=== PATIENT | male | born 1950 | race African-American/Black ===

== ENCOUNTER 2019-05-04 13:10 | Inpatient (IN) | payer MEDICARE ==
[~2019-05-04] VITALS: Ht 177.8 cm; Wt 118.8 kg
[~2019-05-04 13:10] MED LIST: ASPIR 8181 MG PO; CARVEDILOL PO; CLOPIDOGREL75 MG PO; DICLOFENAC POTA50 MG PO; JANUVIA100 MG PO; METFORMIN HCL500 MG PO; PRAVASTATIN SOD20 MG PO; TORSEMIDE20 MG PO; ZESTRIL20 MG PO
[2019-05-04] MEDS ORDERED: SODIUM CHLORIDE 0.9% 500ML 500 ML IV STA (13:37)
[2019-05-04] MEDS ORDERED: FAMOTIDINE 20 MG/2 ML VIAL IV ONE ×2 (13:45→13:51)
[2019-05-04] MEDS ORDERED: ONDANSETRON HCL INJ 2MG/ML 2ML 2 MG/ML VIAL IV ONE (13:45)
[2019-05-04] MEDS ORDERED: ONDANSETRON HCL INJ 2MG/ML 2ML 2 MG/ML VIAL ONE (13:51)
[2019-05-04] MEDS ORDERED: SODIUM CHLORIDE 0.9% 1000ML 1,000 ML ONE (13:51)
[2019-05-04] MEDS ORDERED: INSULIN REGULAR, HUMAN 100 UNIT/1 ML 3ML VIAL SQ ONE (14:00)
[2019-05-04] MEDS ORDERED: INSULIN REGULAR, HUMAN 100 UNIT/1 ML 3ML VIAL ONE (14:11)
[2019-05-04] MEDS: INSULIN REGULAR, HUMAN 100 UNIT/1 ML 3ML VIAL IV SCH ×2 (14:11→21:30)
[2019-05-04] MEDS ORDERED: ONDANSETRON HCL 4 MG ORAL DISINTEGRATING TAB PO PRN (14:30)
[2019-05-04] MEDS ORDERED: MORPHINE SULFATE 2 MG/ML SYR 1ML IV PRN (14:30)
[2019-05-04] MEDS ORDERED: ENALAPRILAT IV INJ 1.25 MG/ML VIAL IV PRN (14:30)
[2019-05-04] MEDS ORDERED: DEXTROSE 50% SYRINGE 50 ML IV PRN (14:30)
--- NOTE | 2019-05-04 14:40 | NUR ---
[facility] CALLED FOR TRANSPORT 45MIN ETA
--- NOTE | 2019-05-04 14:43 | Diagnostic Imaging Report ---
EXAMINATION: CXR 1 VEW - HOPD INDICATION: Hyperglycemia COMPARISON: None FINDINGS: LINES/TUBES:None LUNGS:The lungs are moderately inflated. No focal consolidation. Mild subsegmental atelectasis at the right lung base. PLEURA:No pleural effusion or pneumothorax. MEDIASTINUM:Heart size is at the upper limits of normal. BONES/SOFT TISSUES:No acute osseous injury. ABDOMEN:No free air under the diaphragm. IMPRESSION: No focal pneumonia. Subsegmental atelectasis at the right lung base. Signed by: Gabriel Woods MD on 05/04/2019 2:40 PM
[2019-05-04] MEDS ORDERED: INSULIN GLARGINE 100 UNITS/ML VIAL SQ ONE (15:45)
[2019-05-04 16:09] VITALS: BP 122/68
[2019-05-04 16:14] VITALS: BP 122/68
[2019-05-04] MEDS: LACTATED RINGER'S 1,000 ML IV SCH (16:35)
[2019-05-04] MEDS: INSULIN REGULAR, HUMAN 100 UNIT/1 ML 3ML VIAL SQ SCH ×2 (16:39→21:30)
[2019-05-04] MEDS: FAMOTIDINE 20 MG/2 ML VIAL IV SCH (16:57)
[2019-05-04 17:30] LABS: CREATINE KINASE MB 5.9 ng/mL (0-5.0)
[2019-05-04 18:03] LABS: ANION GAP 22.6 mmol/L (8-16); CALCIUM 8.4 mg/dL (8.4-10.2); CREATININE, SERUM 1.69 mg/dL (0.72-1.25); POTASSIUM 4.6 mmol/L (3.5-5.1)
--- NOTE | 2019-05-04 18:11 | NUR ---
patient received from [facility]. see admit assess. sinus rhythm. see admit assess. vitals stable with exception of blood sugar. treated with insulin
[2019-05-04] MEDS ORDERED: ATORVASTATIN CA20 MG PO (19:17)
[2019-05-04] MEDS ORDERED: CARVEDILOL12.5 MG PO (19:19)
[2019-05-04] MEDS ORDERED: GABAPENTIN300 MG PO (19:19)
[2019-05-04] MEDS ORDERED: POTASSIUM CHLO10 ME1 PO (19:21)
[2019-05-04] MEDS ORDERED: NATEGLINIDE60 MG (19:21)
[2019-05-04] MEDS ORDERED: LANTUS 3ML100 UNITS/ (19:21)
[2019-05-04] MEDS ORDERED: FERROUS SULFAT325 MG (19:21)
[2019-05-04 19:54] VITALS: BP 116/70
[2019-05-04 20:59] VITALS: BP 116/70
[2019-05-05] VITALS (8 sets, daily range): BP systolic 109–159; BP diastolic 66–93
[2019-05-05] MEDS: LACTATED RINGER'S 1,000 ML IV SCH (04:20)
[2019-05-05 05:34] LABS: BASOPHILS % 0.3 % (0.0-1.0); EOSINOPHILS # (AUTO) 0.1 (0.0-0.4); HEMATOCRIT 33.2 % (38.2-49.6); HEMOGLOBIN 11.5 g/dL (14.0-18.0); LYMPHOCYTES # (AUTO) 1.3 (1.0-3.2); LYMPHOCYTES % 11.7 % (18.0-39.1); MEAN CORPUSCULAR HEMOGLOBIN 26.4 pg (28-32); MEAN CORPUSCULAR HGB CONC 34.6 g/dL (31-35); MEAN CORPUSCULAR VOLUME 76.1 fL (81-99); MONOCYTES # (AUTO) 1.4 (0.2-0.8); NEUTROPHILS # (AUTO) 7.9 (2.1-6.9); NEUTROPHILS % 73.4 % (38.7-80.0); PLATELET COUNT 143 x10e3/uL (140-360); RED BLOOD COUNT 4.36 x10e6/uL (4.3-5.7); RED CELL DISTRIBUTION WIDTH 16.3 % (11.7-14.4)
[2019-05-05 05:41] LABS: MAGNESIUM 2.5 MG/DL (1.3-2.1); PHOSPHORUS 2.2 MG/DL (2.3-4.7)
[2019-05-05] MEDS ORDERED: DEXTROSE 50% SYRINGE 50 ML IV PRN (05:45)
[2019-05-05 05:46] LABS: CREATINE KINASE MB 2.2 ng/mL (0-5.0)
--- NOTE | 2019-05-05 05:52 | NUR ---
H&P cc: N/V/D and diaphoresis HPI: 68yoM, PCP Reanna, developed N/V/D and diaphoresis. Found to be in DKA. PMH: DM2, DM-neuropathy, HTN, HLD, CHF PSHx: none Allergies; see emr FH/SH; ; no cigs/etoh Meds; see MAR ROS: no cp/sob/dizziness/vision changes/skin rash/leg pain/back pain v/s revd PE tired appearing anicteric ns1s2 mod bs soft nt nd 1+ leg edema B/L skin dry n. affect a&ox3 lab/meds revd A/P: 68yoM DKA JAYDA HTN HLD DM-neuropathy CHF type? Peripheral edema PLAN IVF Insulin hba1c/lipids/osmoles Echo SCD Dispo: f/u labs; keep NPO. Edmund Wood MD, PhD.
[2019-05-05] MEDS: SODIUM CHLORIDE 0.9% 1000ML 1,000 ML IV SCH ×2 (06:09→13:55)
[2019-05-05 06:31] LABS: BLOOD UREA NITROGEN 58 mg/dL (7-26); CHOLESTEROL 158 MD/DL (0-199); GLUCOSE 227 mg/dL (74-118); OSMOLALITY,SERUM 299 mOsm/kg (278-305); SODIUM 138 mmol/L (136-145); TRIGLYCERIDES 74 MG/DL (0-149)
[2019-05-05 06:33] LABS: HDL CHOLESTEROL < 5 MG/DL (40-60); LDL CHOLESTEROL 138 MG/DL (60-130)
[2019-05-05 06:52] LABS: ANION GAP 15.6 mmol/L (8-16); CALCIUM 8.2 mg/dL (8.4-10.2); CREATININE, SERUM 1.98 mg/dL (0.72-1.25); POTASSIUM 4.6 mmol/L (3.5-5.1)
--- NOTE | 2019-05-05 07:00 | NUR ---
RECEIVED PATIENT RESTING IN BED. NO ACUTE DISTRESS NOTED. DENIES PAIN OR DISCOMFORT. CALL LIGHT WITHIN REACH. BED IN THE LOWEST POSITION.
[2019-05-05] MEDS: FAMOTIDINE 20 MG/2 ML VIAL IV SCH ×2 (08:57→17:20)
[2019-05-05] MEDS: CARVEDILOL 12.5 MG TAB PO SCH ×2 (08:57→17:20)
[2019-05-05] MEDS: FERROUS SULFATE 325 MG TAB PO SCH ×2 (08:58→17:21)
[2019-05-05] MEDS: GABAPENTIN 300 MG CAP PO SCH ×3 (08:58→21:20)
[2019-05-05] MEDS: INSULIN REGULAR, HUMAN 100 UNIT/1 ML 3ML VIAL SQ SCH ×4 (08:59→19:48)
[2019-05-05] MEDS: INSULIN REGULAR, HUMAN 100 UNIT/1 ML 3ML VIAL IV SCH ×4 (09:00→19:48)
--- NOTE | 2019-05-05 11:10 | Diagnostic Imaging Report ---
EXAM: Right upper quadrant abdominal ultrasound INDICATION: Increased LFTs. COMPARISON: Abdominal ultrasound 05/28/2014. TECHNIQUE: Transverse and longitudinal images of the right upper quadrant abdomen were obtained FINDINGS: Liver: Size: Measures 16.7 cm in the right midclavicular line, Appearance: Heterogeneous in appearance. There are multiple hypoechoic nodules seen throughout the liver. Mass: No focal masses Gallbladder: No distention, pericholecystic fluid, wall thickening, or reported sonographic Kemp's sign. There is a 3 mm echogenic lesion in the gallbladder body without shadowing or mobility. However the gallbladder is partially decompressed. Gallbladder wall measures 0.3 cm. Bile Ducts: Intrahepatic Ducts: No dilatation Extrahepatic Ducts: Common bile duct measures 0.4 cm, no dilatation Pancreas: Limited evaluation due to overlying bowel gas. Kidney: The right kidney measures 11.7 cm without evidence of hydronephrosis or stone. Vessels: Aorta: Limited evaluation due to overlying bowel gas. Inferior Vena Cava: Limited evaluation due to overlying bowel gas. Main Portal Vein: 1.1 cm, normal size with hepatopetal flow. Free Fluid: No ascites or pleural effusion IMPRESSION: Hepatomegaly. Multiple hypoechoic nodules seen throughout the liver, which may represent regenerative nodules in the absence of known malignancy. Follow-up liver protocol MRI is recommended for further evaluation. A 3 mm echogenic lesion in the gallbladder body without shadowing or mobility. However the gallbladder is partially decompressed. This may represent a stone or a small polyp. Suggest follow-up ultrasound in 6 months. Signed by: Dr. Flower Fung MD on 05/05/2019 11:07 AM
--- NOTE | 2019-05-05 16:44 | NUR ---
SPOKE TO DR. BUENROSTRO IN REGARDS TO PATIENT'S BG BEING 82 AND PT HAVING SCHEDULED DOSE OF HUMULIN R 10 UNITS. PER MD, HOLD DINNER DOSE AND SCHEDULE PATIENT FOR 10 UNITS OF LANTUS HS. ORDERS PUT IN.
--- NOTE | 2019-05-05 19:20 | NUR ---
Received order to stop fluids due to ble edema.
--- NOTE | 2019-05-05 19:22 | NUR ---
REPORT GIVEN TO ONCOMING NURSE. WALKING ROUNDS DONE. PATIENT IS IN STABLE CONDITION. NO S/S OF PAIN NOTED AT THIS TIME. CALL LIGHT WITHIN REACH. BED IN THE LOWEST POSITION. BED ALARM ON.
[2019-05-05] MEDS ORDERED: INSULIN GLARGINE 100 UNITS/ML VIAL SQ SCH (21:00)
[2019-05-05] MEDS: ATORVASTATIN 20 MG TAB PO SCH (21:20)
[2019-05-06] VITALS (8 sets, daily range): BP systolic 117–138; BP diastolic 61–84
--- NOTE | 2019-05-06 05:38 | NUR ---
IM- progress note O/N: no events ROS: no cp/sob/dizziness/vision changes/skin rash/leg pain/back pain v/s revd PE tired appearing anicteric ns1s2 mod bs soft nt nd 1+ leg edema B/L skin dry n. affect a&ox3 lab/meds revd A/P: 68yoM DKA JAYDA HTN HLD DM-neuropathy CHF type? Peripheral edema PLAN IVF Insulin hba1c/lipids/osmoles Echo SCD Dispo: f/u labs; keep NPO. Hba1c/LDL 12.9/138 Uncontrolled DM; but periods of hypoglycemia here; adjust meds; lower dosings; f/u labs; Edmund Wood MD, PhD.
--- NOTE | 2019-05-06 05:55 | NUR ---
Dr. Wood here for rounding. Orders received.
--- NOTE | 2019-05-06 06:40 | NUR ---
RECEIVED PATIENT RESTING IN BED. NO ACUTE DISTRESS NOTED. NO S/S OF PAIN NOTED AT THIS TIME. CALL LIGHT WITHIN REACH. BED IN THE LOWEST POSITION.
--- NOTE | 2019-05-06 06:40 | NUR ---
NOTIFIED DR. BUENROSTRO OF PATIENT'S PRELIMINARY ECHO RESULTS THAT SHOW EF OF 20-25%, PER MD CONSULT DR. LAINEZ FOR HEART FAILURE. ORDER PLACED.
[2019-05-06] MEDS ORDERED: INSULIN REGULAR, HUMAN 100 UNIT/1 ML 3ML VIAL IV SCH (07:30)
[2019-05-06] MEDS: FAMOTIDINE 20 MG/2 ML VIAL IV SCH ×2 (08:02→16:54)
[2019-05-06] MEDS: INSULIN REGULAR, HUMAN 100 UNIT/1 ML 3ML VIAL IV SCH ×4 (08:03→21:45)
[2019-05-06] MEDS: CARVEDILOL 12.5 MG TAB PO SCH ×2 (08:03→16:54)
[2019-05-06] MEDS: GABAPENTIN 300 MG CAP PO SCH ×3 (08:03→20:30)
[2019-05-06] MEDS: FERROUS SULFATE 325 MG TAB PO SCH ×2 (08:03→16:54)
[2019-05-06] MEDS: INSULIN REGULAR, HUMAN 100 UNIT/1 ML 3ML VIAL SQ SCH ×4 (08:10→21:45)
[2019-05-06 09:31] LABS: ANION GAP 17.3 mmol/L (8-16); CALCIUM 8.2 mg/dL (8.4-10.2); CREATININE, SERUM 1.54 mg/dL (0.72-1.25); POTASSIUM 5.3 mmol/L (3.5-5.1)
--- NOTE | 2019-05-06 09:38 | NUR ---
NOTIFIED DR. BUENROSTRO OF POTASSIUM LEVEL OF 5.3, WAITING ACID LOADER BACK.
--- NOTE | 2019-05-06 10:13 | NUR ---
PER DR. BUENROSTRO, RE-ASSESS POTASSIUM LEVEL AT 1600.
--- NOTE | 2019-05-06 16:25 | NUR ---
DR. DOUGLAS CROWLEY ON PATIENT. NOTIFIED HIM THAT PATIENT HAS +3 PITTING EDEMA TO BILATERAL LOWER EXTREMITIES. NO NEW ORDERS RECEIVED AT THIS TIME.
--- NOTE | 2019-05-06 17:01 | NUR ---
CALLED LAB TO FIND OUT WHEN DUMP TRUCK OPERATOR WILL BE COMING TO COLLECT BLOOD FOR POTASSIUM RECHECK SCHEDULED FOR 1600. PER LAB, DUMP TRUCK OPERATOR WILL COME SOON, HE IS IN THE FLOOR.
--- NOTE | 2019-05-06 17:32 | NUR ---
CALLED LAB AGAIN TO FIND OUT ABOUT POTASSIUM LEVEL SCHEDULED FOR 1600 AND OTHER LABS. FISHING REEL ASSEMBLER WAS TOLD THAT THEY WILL BE COMING SOON TO COLLECT.
--- NOTE | 2019-05-06 19:01 | NUR ---
REPORT GIVEN TO ONCOMING NURSE. WALKING ROUNDS DONE. PATIENT IS IN STABLE CONDITION, NO ACUTE DISTRESS NOTED. FAMILY AT BEDSIDE. CALL LIGHT WITHIN REACH. BED IN THE LOWEST POSITION.
[2019-05-06] MEDS: ATORVASTATIN 20 MG TAB PO SCH (20:30)
[2019-05-06] MEDS ORDERED: INSULIN GLARGINE 100 UNITS/ML VIAL SQ SCH (21:00)
[2019-05-06] MEDS: INSULIN GLARGINE 100 UNITS/ML VIAL SQ SCH (21:45)
--- NOTE | 2019-05-06 23:54 | Consultation ---
DATE OF CONSULTATION: 05/06/2019 Cardiology Consultation Note CLINICAL HISTORY: This is a 68-year-old black man referred by Dr. Edmund Wood for evaluation of congestive heart failure. This patient presented to the emergency room with complaints of weakness, unable to walk. He was found to have elevated BUN of 57 and creatinine of 1.56 and he was started on large amount of intravenous fluids. Echocardiogram however showed ejection fraction in the range of 30% with also diastolic dysfunction. According to the patient, he has had congestive heart failure for at least 10 years. He does not know the cause. He denies any previous myocardial infarction or chest pains. He denies any previous alcohol usage. He denies any virus infection. He has been abroad. PAST MEDICAL HISTORY: History of hypertension, diabetes, and diabetic neuropathy. PERSONAL AND SOCIAL HISTORY: Denies smoking and drinking. FAMILY HISTORY: Noncontributory. REVIEW OF SYSTEMS: Negative. PHYSICAL EXAMINATION: GENERAL: He appears to be lethargic, sleepy. He is oriented to person, place and president. He does not know the year. VITAL SIGNS: Blood pressure 129/84, oxygen saturation 97% on room air, and pulse is 80. CARDIAC: Jugular veins were nondistended. S1, S2 were regular. There were no appreciable murmurs. LUNGS: Clear. ABDOMEN: Soft. Bowel sounds are present. EXTREMITIES: Showed no cyanosis, clubbing, or edema. LABORATORY DATA: Ultrasound showed spots on the liver and possible gallstone or polyp. Chest x-ray showed right lung subsegmental atelectasis. White count is 10,800, hemoglobin is 11.5, platelet count of 141,000. Sodium 135, potassium 5.3, BUN 57, creatinine 1.54 and bicarb is 20. IMPRESSION: 1. Chronic systolic and diastolic congestive heart failure. 2. Consider underlying coronary artery disease with EKG showed nonspecific ST segment depression. 3. Hypertension. 4. Diabetes with diabetic neuropathy. 5. Disorientation, rule out hepatic encephalopathy. 6. Multiple nodules in the liver with possible gallbladder polyp or stone. 7. Acute kidney injury or chronic kidney disease. 8. Anemia. Hemoglobin 11.5. 9. Hyperkalemia. Potassium 5.3. RECOMMENDATION: Consider afterload reduction if blood pressure can tolerate. Consider diuretics. Consider stress testing. Doyle K MD GENESIS Holloway/MODL /[id number] cc: Edmund Wood MD
[2019-05-07] VITALS (9 sets, daily range): BP systolic 107–139; BP diastolic 66–81
--- NOTE | 2019-05-07 06:54 | NUR ---
IM- progress note O/N: no events ROS: no cp/sob/dizziness/vision changes/skin rash/leg pain/back pain v/s revd PE tired appearing anicteric ns1s2 mod bs soft nt nd 1+ leg edema B/L skin dry n. affect a&ox3 lab/meds revd A/P: 68yoM DKA JAYDA HTN HLD DM-neuropathy CHF type? Peripheral edema PLAN IVF Insulin hba1c/lipids/osmoles Echo SCD Dispo: f/u labs; keep NPO. Hba1c/LDL 12.9/138 Uncontrolled DM; but periods of hypoglycemia here; adjust meds; lower dosings; f/u labs; 05/07/19 Hepatomegaly; f/u imaging in future; Combined diastolic and systolic CHF LVEF 20-25%; stress test vs [facility] pending; Edmund Wood MD, PhD.
[2019-05-07] MEDS: INSULIN REGULAR, HUMAN 100 UNIT/1 ML 3ML VIAL IV SCH ×4 (07:30→20:16)
[2019-05-07] MEDS: INSULIN REGULAR, HUMAN 100 UNIT/1 ML 3ML VIAL SQ SCH ×4 (07:30→20:16)
[2019-05-07] MEDS: CARVEDILOL 12.5 MG TAB PO SCH ×2 (09:35→18:08)
[2019-05-07] MEDS: FAMOTIDINE 20 MG/2 ML VIAL IV SCH ×2 (09:35→18:08)
[2019-05-07] MEDS: FERROUS SULFATE 325 MG TAB PO SCH ×2 (09:35→18:09)
[2019-05-07] MEDS: GABAPENTIN 300 MG CAP PO SCH ×3 (09:35→20:16)
--- NOTE | 2019-05-07 10:33 | NUR ---
Allenvyn dressing applied to sacral area. Stage 2 observed at the site, pt tolerated well.
--- NOTE | 2019-05-07 11:36 | NUR ---
Left message for Dr. Wood regarding dc plan. Informed PT recommending SNF. Awaiting response.
--- NOTE | 2019-05-07 12:10 | NUR ---
EDUCATED ABOUT IMM, SIGNED, FILED IN CHART, WITH COPY LEFT WITH FAMILY AT BEDSIDE.
--- NOTE | 2019-05-07 14:21 | NUR ---
68 Y/O MALE DIABETIC , HYPEROSMOLAR NON-KETOTIC STATE LABS: WBC 10.81, GLUCOSE 97 , HGB A1C 12.9 ASSESSMENT FINDINGS : (WOUND 1 ) OPEN PARTIAL THICKNESS WOUND TO LFT. KNEE REPORTED SKIN TEAR VASCULAR RED BASE NOTED WITH SLT SEROSANGUINEOUS DRAINAGE NOTED (WOUND 2) PARTIAL THICKNESS WOUND 1.5CMX0.5CMX0.1CM NOTED TO SACRAL CREASE OF BUTTOCK PINK WOUND BASE WITH NO DRAINAGE NOTED JOHNSON SKIN INTACT AND BLANCHABLE RECOMMENDATIONS FOLLOWS: NURSING TO CONTINUE Q SHIFT ASSESSMENT AND PROTECT AND OFFLOAD NURSING TO CONTINUE TO MAINTAIN ALTERNATING AIR MATTRESS NURSING TO CONTINUE TO GET PATIENT OUT OF BED FOR MEALS AND TOLERATED NURSING TO APPLY PURACOL WITH FOAM SECURE WITH TAPE EVERY OTHER DAY TO LFT KNEE WOUND NURSING TO APPLY VENELEX OINT DAILY COVER WITH ALLEVYN FOAM Addendum: 05/07/19 at 1443 by Hang Knott RN Amended: Links added.
[2019-05-07] MEDS ORDERED: PROMETHAZINE 12.5MG/ NACL 0.9% 12.5 MG/50 ML BAG IV PRN (16:15)
[2019-05-07] MEDS ORDERED: PROMETHAZINE 12.5MG/ NACL 0.9% 50 ML IV PRN (16:30)
--- NOTE | 2019-05-07 18:01 | NUR ---
PT CHOICE FORM SIGNED FOR [facility] PHONE NUMBER IS [phone] FAXED TO [phone]
[2019-05-07] MEDS: DOCUSATE SODIUM 100 MG CAP PO SCH (18:08)
[2019-05-07] MEDS: SENNOSIDES 8.6 MG TAB PO SCH (18:09)
[2019-05-07] MEDS: ATORVASTATIN 40 MG TAB PO SCH (20:16)
[2019-05-07] MEDS: INSULIN GLARGINE 100 UNITS/ML VIAL SQ SCH (20:17)
[2019-05-08 03:54] VITALS: BP 100/57
--- NOTE | 2019-05-08 06:50 | NUR ---
IM- progress note O/N: no events ROS: no cp/sob/dizziness/vision changes/skin rash/leg pain/back pain v/s revd PE tired appearing anicteric ns1s2 mod bs soft nt nd 1+ leg edema B/L skin dry n. affect a&ox3 lab/meds revd A/P: 68yoM DKA JAYDA HTN HLD DM-neuropathy CHF type? Peripheral edema PLAN IVF Insulin hba1c/lipids/osmoles Echo SCD Dispo: f/u labs; keep NPO. Hba1c/LDL 12.9/138 Uncontrolled DM; but periods of hypoglycemia here; adjust meds; lower dosings; f/u labs; 05/07/19 Hepatomegaly; f/u imaging in future; Combined diastolic and systolic CHF LVEF 20-25%; stress test vs [facility] pending; 05/08 snf eval; cardiac eval Edmund Wood MD, PhD.
--- NOTE | 2019-05-08 07:00 | NUR ---
BEDSIDE SHIFT REPORT RECEIVED FROM THE OVEREDGE MACHINE OPERATOR RN. PT DENIES NEEDS AT THIS TIME.
[2019-05-08 08:00] VITALS: BP 127/83
[2019-05-08] MEDS: INSULIN REGULAR, HUMAN 100 UNIT/1 ML 3ML VIAL SQ SCH ×7 (08:15→21:23)
[2019-05-08 08:26] LABS: BASOPHILS % 0.5 % (0.0-1.0); EOSINOPHILS # (AUTO) 0.1 (0.0-0.4); EOSINOPHILS % 1.1 % (0.0-6.0); HEMATOCRIT 33.2 % (38.2-49.6); HEMOGLOBIN 11.7 g/dL (14.0-18.0); LYMPHOCYTES # (AUTO) 1.1 (1.0-3.2); LYMPHOCYTES % 12.8 % (18.0-39.1); MEAN CORPUSCULAR HEMOGLOBIN 26.4 pg (28-32); MEAN CORPUSCULAR HGB CONC 35.2 g/dL (31-35); MEAN CORPUSCULAR VOLUME 74.8 fL (81-99); MONOCYTES # (AUTO) 1.4 (0.2-0.8); MONOCYTES % 16.2 % (4.4-11.3); NEUTROPHILS # (AUTO) 5.7 (2.1-6.9); NEUTROPHILS % 68.7 % (38.7-80.0); PLATELET COUNT 125 x10e3/uL (140-360); RED BLOOD COUNT 4.44 x10e6/uL (4.3-5.7); RED CELL DISTRIBUTION WIDTH 17.3 % (11.7-14.4)
--- NOTE | 2019-05-08 08:30 | NUR ---
PAGED DR. BUENROSTRO TO CONFIRM THE ORDER INSULIN THROUGH IV. NO NEW ORDERS RECEIVED.
[2019-05-08 08:34] VITALS: BP 127/83
[2019-05-08 08:38] LABS: ANION GAP 15.5 mmol/L (8-16); BLOOD UREA NITROGEN 50 mg/dL (7-26); BUN/CREATININE RATIO 37 (6-25); CALCIUM 7.9 mg/dL (8.4-10.2); CARBON DIOXIDE 22 mmol/L (22-29); CHLORIDE 104 mmol/L (98-107); CREATININE, SERUM 1.34 mg/dL (0.72-1.25); EST GLOMERULAR FILTRATION RATE > 60 ML/MIN (60-); GLUCOSE 163 mg/dL (74-118); POTASSIUM 5.5 mmol/L (3.5-5.1); SODIUM 136 mmol/L (136-145)
--- NOTE | 2019-05-08 08:45 | NUR ---
INSULIN ROUTE CHANGED TO SUBQ PER DR BUENROSTRO
[2019-05-08] MEDS: CARVEDILOL 12.5 MG TAB PO SCH ×2 (08:53→18:00)
[2019-05-08] MEDS: FAMOTIDINE 20 MG/2 ML VIAL IV SCH ×2 (08:54→17:59)
[2019-05-08] MEDS: GABAPENTIN 300 MG CAP PO SCH ×3 (08:57→21:22)
[2019-05-08] MEDS: SENNOSIDES 8.6 MG TAB PO SCH ×2 (08:57→17:59)
[2019-05-08] MEDS: DOCUSATE SODIUM 100 MG CAP PO SCH ×2 (08:57→17:59)
[2019-05-08] MEDS: FERROUS SULFATE 325 MG TAB PO SCH ×2 (08:57→17:59)
--- NOTE | 2019-05-08 09:24 | NUR ---
FAXED PAS[facility] TO [facility], PRINTED RTF AND PUT AT NURSES STATION AND FILED PASRR IN CHART AND COPY WITH PACKET TO GO TO FACILITY.
[2019-05-08 09:30] LABS: EOSINOPHILS % (MANUAL) 1 % (0-7); LYMPHOCYTES % (MANUAL) 11 % (19-48); MONOCYTES % (MANUAL) 18 % (3.4-9.0); NEUTROPHILS % (MANUAL) 70 % (40-74); PLATELET ESTIMATE SLIGHTLY DECREASED; PLATELET MORPHOLOGY COMMENT FEW LARGE; RBC MORPHOLOGY COMMENT NORMAL
[2019-05-08] MEDS: BALSAM PERU/CASTOR OIL 60 GM OINT...G. TP SCH (09:30)
--- NOTE | 2019-05-08 09:45 | NUR ---
RAC 20G IV REMOVED. TIP INTACT. NO BLEEDING NOTED. DRESSING APPLIED.PT DENIED FURTHER NEEDS.
--- NOTE | 2019-05-08 10:00 | NUR ---
RH NEW IV STARTED. PT DENIED FURTHER NEEDS. Addendum: 05/08/19 at 1541 by Praful Spaulding RN LH NEW IV STARTED 20G
--- NOTE | 2019-05-08 10:05 | NUR ---
PT POTASSIUM LEVEL IS HIGH. PAGED DR. BUENROSTRO AND LEFT MESSAGE REGARDING THE K LEVEL.
--- NOTE | 2019-05-08 11:20 | NUR ---
PT OFF UNIT FOR PROCEDURE.
[2019-05-08] MEDS ORDERED: REGADENOSON 0.4 MG/5 ML SYR IV ONE (11:40)
--- NOTE | 2019-05-08 13:15 | NUR ---
PT IS BACK TO UNIT AFTER PROCEDURE. PT IS AAOX2. PT IS TRYING TO GET OUT OF BED. EDUCATED PT ABOUT FALL PRECAUTIONS. BED ALARM IS ON. PT FAMILY AT BEDSIDE. CALL LIGHT WITH IN EASY REACH. PT DENIES NEEDS AT THIS TIME.
[2019-05-08 13:40] VITALS: BP 95/76
--- NOTE | 2019-05-08 14:00 | NUR ---
CALL BACK FROM DR. BUENROSTRO. GIVE 500 ML FLUID BOLUS AND RECHECK K LEVEL AFTER 2 HOURS.
--- NOTE | 2019-05-08 14:05 | NUR ---
PT K LEVEL IS 5.5. PER DR. BUENROSTRO GIVE 500 FL FLUID BOLUS. RECONFIRMED BOLUS ORDER, DOSAGE AND PT HX OF CHF WITH
[2019-05-08] MEDS ORDERED: SODIUM CHLORIDE 0.9% 500ML 500 ML IV ONE (14:15)
[2019-05-08] MEDS ORDERED: SODIUM CHLORIDE 0.9% 1000ML 1,000 ML IV SCH (14:15)
--- NOTE | 2019-05-08 15:00 | NUR ---
PT ABDOMEN DISTENDED. SWELLING ON HANDS AND LEGS. INFORMED DR. BUENROSTRO. IV BOLUS ORDER CANCELLED. NEW ORDER RECEIVED FOR KAYEXALATE.
[2019-05-08] MEDS ORDERED: SOD POLYSTYRENE SULFONATE SUSP 15 GM/60 ML BTL PO NR (15:15)
[2019-05-08 16:00] VITALS: BP 107/72
--- NOTE | 2019-05-08 16:35 | NUR ---
NUCLEAR MEDICINE NURSE AT BEDSIDE.
--- NOTE | 2019-05-08 19:00 | NUR ---
PT OFF UNIT FOR PROCEDURE. REPORT GIVEN TO JUVENILE JUSTICE OFFICER RN.
--- NOTE | 2019-05-08 19:42 | NUR ---
PT BACK FROM PROCEDURE AT THIS TIME.NO S/S OF DISTRESS NOTED.RESPIRATIONS EVEN/NON LABORED.PT FAMILY AT BEDSIDE.BED IN LOWEST/LOCKED POSITION.CALL LIGHT WITHIN EASY REACH.
[2019-05-08 21:19] VITALS: BP 135/79
[2019-05-08] MEDS: ATORVASTATIN 40 MG TAB PO SCH (21:22)
[2019-05-08] MEDS: INSULIN GLARGINE 100 UNITS/ML VIAL SQ SCH (21:24)
[2019-05-09] VITALS (7 sets, daily range): BP systolic 91–135; BP diastolic 58–84
[2019-05-09 06:01] LABS: ANION GAP 14.2 mmol/L (8-16); CALCIUM 8.1 mg/dL (8.4-10.2); CREATININE, SERUM 1.67 mg/dL (0.72-1.25); POTASSIUM 4.2 mmol/L (3.5-5.1)
--- NOTE | 2019-05-09 07:00 | NUR ---
BEDSIDE SHIFT REPORT RECEIVED FROM COMMUNITY ADVOCATE RN. PT DENIES NEEDS AT THIS TIME.
--- NOTE | 2019-05-09 07:03 | NUR ---
BEDSIDE SHIFT REPORT GIVEN TO ONCOMING NURSE.PT RESTING IN BED WITH NO S/S OF DISTRESS.
--- NOTE | 2019-05-09 07:30 | NUR ---
CALL FROM DR. BUENROSTRO. INFORMED CONCERN OVER ABDOMINAL DISTENTION. NEW ORDER RECEIVED FOR JONATHAN.
--- NOTE | 2019-05-09 07:30 | NUR ---
IM- progress note O/N: no events ROS: no cp/sob/dizziness/vision changes/skin rash/leg pain/back pain v/s revd PE tired appearing anicteric ns1s2 mod bs soft nt nd 1+ leg edema B/L skin dry n. affect a&ox3 lab/meds revd A/P: 68yoM DKA JAYDA HTN HLD DM-neuropathy CHF type? Peripheral edema PLAN IVF Insulin hba1c/lipids/osmoles Echo SCD Dispo: f/u labs; keep NPO. Hba1c/LDL 12.9/138 Uncontrolled DM; but periods of hypoglycemia here; adjust meds; lower dosings; f/u labs; 05/07/19 Hepatomegaly; f/u imaging in future; Combined diastolic and systolic CHF LVEF 20-25%; stress test vs [facility] pending; 05/08 snf eval; cardiac eval 05/09 fluids off at family request; some confusion; continue insulin; give 1/2NS at 50/hr; Hyperkalemia resolved with kayexalate; get KUB . SNF eval pending; Edmund Wood MD, PhD.
--- NOTE | 2019-05-09 07:35 | NUR ---
NEW ORDER RECEIVED FROM DR. BUENROSTRO FOR FLUIDS AT 50 ML/HR. INFORMED PT SWELLING AND HX OF CHF. ORDER RECONFIRMED.
[2019-05-09] MEDS: SODIUM CHLORIDE 0.45% 1,000 ML IV SCH (08:18)
[2019-05-09] MEDS: DOCUSATE SODIUM 100 MG CAP PO SCH ×2 (08:18→16:03)
[2019-05-09] MEDS: FERROUS SULFATE 325 MG TAB PO SCH ×2 (08:19→16:03)
[2019-05-09] MEDS: GABAPENTIN 300 MG CAP PO SCH ×3 (08:19→21:15)
[2019-05-09] MEDS: CLOPIDOGREL BISULFATE 75 MG TAB PO SCH (08:19)
[2019-05-09] MEDS: SENNOSIDES 8.6 MG TAB PO SCH ×2 (08:19→16:03)
[2019-05-09] MEDS: INSULIN REGULAR, HUMAN 100 UNIT/1 ML 3ML VIAL SQ SCH ×8 (08:30→21:17)
[2019-05-09] MEDS: BALSAM PERU/CASTOR OIL 60 GM OINT...G. TP SCH (09:00)
--- NOTE | 2019-05-09 10:42 | NUR ---
CALLED [facility] TO SEE WHERE THE REFERRAL, SPOKE WITH BUSINESS OFFICE WHOM STATES SHE WAS OUT ON TUESDAY AND JUST GOT CLINICALS LATE LAST NIGHT DONALD MCKOY TO RUN BENEFITS, SHE STATES SHE WILL HAVE SOMEONE CALL ME BACK SOON THEY KNOW SOMETHING.
[2019-05-09] MEDS: FAMOTIDINE 20 MG/2 ML VIAL IV SCH ×2 (10:46→16:03)
[2019-05-09] MEDS: CARVEDILOL 12.5 MG TAB PO SCH ×2 (10:47→16:04)
--- NOTE | 2019-05-09 14:08 | NUR ---
EDUCATED ABOUT IMM, SIGNED, FILED IN CHART, WITH COPY LEFT WITH FAMILY AT BEDSIDE.
--- NOTE | 2019-05-09 15:39 | Diagnostic Imaging Report ---
Exam: KUB - 2 views Indication: Abdominal distention Comparison: None Findings: Nonobstructive bowel gas pattern. No evidence of free intraperitoneal air. No evidence of abnormal calcification. No acute bony abnormality. Impression: No acute radiographic abnormality. Signed by: Gabriel Woods MD on 05/09/2019 3:36 PM
--- NOTE | 2019-05-09 19:24 | NUR ---
BEDSIDE SHIFT REPORT GIVEN TO THE TURFGRASS MANAGEMENT PROFESSOR RN. PT DENIED FURTHER NEEDS.
[2019-05-09] MEDS: ATORVASTATIN 40 MG TAB PO SCH (21:15)
[2019-05-09] MEDS: INSULIN GLARGINE 100 UNITS/ML VIAL SQ SCH (21:18)
[2019-05-10] VITALS (7 sets, daily range): BP systolic 95–121; BP diastolic 54–66
[2019-05-10] MEDS: SODIUM CHLORIDE 0.45% 1,000 ML IV SCH ×2 (02:51→22:12)
--- NOTE | 2019-05-10 06:53 | NUR ---
IM- progress note O/N: no events ROS: no cp/sob/dizziness/vision changes/skin rash/leg pain/back pain v/s revd PE tired appearing anicteric ns1s2 mod bs soft nt nd 1+ leg edema B/L skin dry n. affect a&ox3 lab/meds revd A/P: 68yoM DKA JAYDA HTN HLD DM-neuropathy CHF type? Peripheral edema PLAN IVF Insulin hba1c/lipids/osmoles Echo SCD Dispo: f/u labs; keep NPO. Hba1c/LDL 12.9/138 Uncontrolled DM; but periods of hypoglycemia here; adjust meds; lower dosings; f/u labs; 05/07/19 Hepatomegaly; f/u imaging in future; Combined diastolic and systolic CHF LVEF 20-25%; stress test vs [facility] pending; 05/08 snf eval; cardiac eval 05/09 fluids off at family request; some confusion; continue insulin; give 1/2NS at 50/hr; Hyperkalemia resolved with kayexalate; get KUB . SNF eval pending; 05/10 KUB negative; check renal fn; Further assessment by cardio shows LVEF 30%; no lifevest indicated; SNF pending; Edmund Wood MD, PhD.
--- NOTE | 2019-05-10 07:00 | NUR ---
BEDSIDE SHIFT REPORT RECEIVED FROM THE DISTRICT BRANCH MANAGER RN. PT DENIES NEEDS AT THIS TIME.
--- NOTE | 2019-05-10 07:10 | NUR ---
BEDSIDE SHIFT REPORT GIVEN TO ONCOMING NURSE.PT RESTING IN BED WITH NO S/S OF DISTRESS.
[2019-05-10] MEDS: INSULIN REGULAR, HUMAN 100 UNIT/1 ML 3ML VIAL SQ SCH ×5 (07:30→21:00)
--- NOTE | 2019-05-10 07:30 | NUR ---
DR. BUENROSTRO AT BEDSIDE. PT IS NOT EATING WELL. STOPPED 5 UNITS STANDING ORDER INSULIN HUMULIN PER THE DR AND USING ONLY SLIDING SCALE INSULIN HUMULIN.
[2019-05-10 07:59] LABS: ANION GAP 13.6 mmol/L (8-16); CALCIUM 7.6 mg/dL (8.4-10.2); CREATININE, SERUM 1.72 mg/dL (0.72-1.25); POTASSIUM 4.6 mmol/L (3.5-5.1)
[2019-05-10] MEDS: DOCUSATE SODIUM 100 MG CAP PO SCH ×2 (08:25→17:00)
[2019-05-10] MEDS: FAMOTIDINE 20 MG/2 ML VIAL IV SCH ×2 (08:25→17:00)
[2019-05-10] MEDS: GABAPENTIN 300 MG CAP PO SCH ×3 (08:26→22:11)
[2019-05-10] MEDS: CLOPIDOGREL BISULFATE 75 MG TAB PO SCH (08:26)
[2019-05-10] MEDS: SENNOSIDES 8.6 MG TAB PO SCH ×2 (08:26→17:00)
[2019-05-10] MEDS: FERROUS SULFATE 325 MG TAB PO SCH ×2 (08:26→17:00)
[2019-05-10] MEDS: BALSAM PERU/CASTOR OIL 60 GM OINT...G. TP SCH (09:00)
[2019-05-10] MEDS: CARVEDILOL 12.5 MG TAB PO SCH ×2 (09:00→17:00)
--- NOTE | 2019-05-10 19:00 | NUR ---
BEDSIDE SHIFT REPORT GIVEN TO THE RADIOLOGIC TECH RN. FAMILY AT BEDSIDE. PT DENIED FURTHER NEEDS.
[2019-05-10] MEDS: INSULIN GLARGINE 100 UNITS/ML VIAL SQ SCH (21:00)
[2019-05-10] MEDS: ATORVASTATIN 40 MG TAB PO SCH (22:11)
[2019-05-11] VITALS (9 sets, daily range): BP systolic 95–129; BP diastolic 56–70
[2019-05-11] MEDS: INSULIN REGULAR, HUMAN 100 UNIT/1 ML 3ML VIAL SQ SCH ×4 (07:30→21:45)
--- NOTE | 2019-05-11 08:16 | NUR ---
IM- progress note O/N: no events ROS: no cp/sob/dizziness/vision changes/skin rash/leg pain/back pain v/s revd PE tired appearing anicteric ns1s2 mod bs soft nt nd 1+ leg edema B/L skin dry n. affect a&ox3 lab/meds revd A/P: 68yoM DKA JAYDA HTN HLD DM-neuropathy CHF type? Peripheral edema PLAN IVF Insulin hba1c/lipids/osmoles Echo SCD Dispo: f/u labs; keep NPO. Hba1c/LDL 12.9/138 Uncontrolled DM; but periods of hypoglycemia here; adjust meds; lower dosings; f/u labs; 05/07/19 Hepatomegaly; f/u imaging in future; Combined diastolic and systolic CHF LVEF 20-25%; stress test vs [facility] pending; 05/08 snf eval; cardiac eval 05/09 fluids off at family request; some confusion; continue insulin; give 1/2NS at 50/hr; Hyperkalemia resolved with kayexalate; get KUB . SNF eval pending; 05/10 KUB negative; check renal fn; Further assessment by cardio shows LVEF 30%; no lifevest indicated; SNF pending; 05/11 check labs; titrate lantus to 7 units; ambulate pt. Confused; Low mood; check ammonia and check PHQ9 and P4 now; likely needs antidepressants; Edmund Wood MD, PhD.
[2019-05-11 08:37] LABS: BASOPHILS % 0.2 % (0.0-1.0); EOSINOPHILS # (AUTO) 0.1 (0.0-0.4); EOSINOPHILS % 1.1 % (0.0-6.0); HEMATOCRIT 32.4 % (38.2-49.6); HEMOGLOBIN 11.6 g/dL (14.0-18.0); LYMPHOCYTES % 10.5 % (18.0-39.1); MEAN CORPUSCULAR HEMOGLOBIN 26.7 pg (28-32); MEAN CORPUSCULAR HGB CONC 35.8 g/dL (31-35); MEAN CORPUSCULAR VOLUME 74.7 fL (81-99); MONOCYTES # (AUTO) 1.3 (0.2-0.8); MONOCYTES % 13.9 % (4.4-11.3); NEUTROPHILS # (AUTO) 7.1 (2.1-6.9); NEUTROPHILS % 73.9 % (38.7-80.0); PLATELET COUNT 131 x10e3/uL (140-360); RED BLOOD COUNT 4.34 x10e6/uL (4.3-5.7); RED CELL DISTRIBUTION WIDTH 17.5 % (11.7-14.4)
[2019-05-11 08:58] LABS: ANION GAP 17.6 mmol/L (8-16); CALCIUM 7.8 mg/dL (8.4-10.2); CREATININE, SERUM 2.44 mg/dL (0.72-1.25); POTASSIUM 4.6 mmol/L (3.5-5.1)
[2019-05-11] MEDS: DOCUSATE SODIUM 100 MG CAP PO SCH ×2 (09:41→16:08)
[2019-05-11] MEDS: FAMOTIDINE 20 MG/2 ML VIAL IV SCH ×2 (09:41→16:08)
[2019-05-11] MEDS: SENNOSIDES 8.6 MG TAB PO SCH ×2 (09:42→16:08)
[2019-05-11] MEDS: CARVEDILOL 12.5 MG TAB PO SCH ×2 (09:42→16:08)
[2019-05-11] MEDS: FERROUS SULFATE 325 MG TAB PO SCH ×2 (09:42→16:08)
[2019-05-11] MEDS: CLOPIDOGREL BISULFATE 75 MG TAB PO SCH (09:42)
[2019-05-11] MEDS: GABAPENTIN 300 MG CAP PO SCH ×3 (09:42→21:00)
[2019-05-11 10:44] LABS: EOSINOPHILS % (MANUAL) 1 % (0-7); LYMPHOCYTES % (MANUAL) 14 % (19-48); MONOCYTES % (MANUAL) 11 % (3.4-9.0); NEUTROPHILS % (MANUAL) 74 % (40-74); PLATELET ESTIMATE MODERATELY DECREASED; RBC MORPHOLOGY COMMENT NORMAL
--- NOTE | 2019-05-11 10:56 | NUR ---
at bedside. Patient states " I'm about to give up." Notified of patient's statement and of lab results.
[2019-05-11] MEDS: BALSAM PERU/CASTOR OIL 60 GM OINT...G. TP SCH (12:00)
--- NOTE | 2019-05-11 12:00 | NUR ---
Jack social insurance specialist aware of orders to complete PHQ9 and P4 survey
--- NOTE | 2019-05-11 12:08 | NUR ---
ADDENDUM: RISING BUN and JAYDA - consult Nephrology IM- progress note O/N: no events ROS: no cp/sob/dizziness/vision changes/skin rash/leg pain/back pain v/s revd PE tired appearing anicteric ns1s2 mod bs soft nt nd 1+ leg edema B/L skin dry n. affect a&ox3 lab/meds revd A/P: 68yoM DKA JAYDA HTN HLD DM-neuropathy CHF type? Peripheral edema PLAN IVF Insulin hba1c/lipids/osmoles Echo SCD Dispo: f/u labs; keep NPO. Hba1c/LDL 12.9/138 Uncontrolled DM; but periods of hypoglycemia here; adjust meds; lower dosings; f/u labs; 05/07/19 Hepatomegaly; f/u imaging in future; Combined diastolic and systolic CHF LVEF 20-25%; stress test vs [facility] pending; 05/08 snf eval; cardiac eval 05/09 fluids off at family request; some confusion; continue insulin; give 1/2NS at 50/hr; Hyperkalemia resolved with kayexalate; get KUB . SNF eval pending; 05/10 KUB negative; check renal fn; Further assessment by cardio shows LVEF 30%; no lifevest indicated; SNF pending; 05/11 check labs; titrate lantus to 7 units; ambulate pt. Confused; Low mood; check ammonia and check PHQ9 and P4 now; likely needs antidepressants; Rising BUN and JAYDA - consult nephrology Edmund Wood MD, PhD.
--- NOTE | 2019-05-11 12:10 | NUR ---
EDUCATED ABOUT IMM, SIGNED, FILED IN CHART, WITH COPY LEFT WITH FAMILY AT BEDSIDE.
--- NOTE | 2019-05-11 12:19 | NUR ---
SNF FACILITY DISCHARGE INFORMATION PATIENT HAS BEEN ACCEPTED TO: [facility] NAME: [facility] ADDRESS: [address], [place] [address] ACCEPTING MD: SACHI ROOM: [address]A NURSE CALL REPORT TO: IMM SIGNED AND OBTAINED (if applicable): IMM ON 05/11/2019 THE FOLLOWING DOCUMENTS MUST ACCOMPANY PATIENT FOR TRANSFER: COPIED CHART: PASRR AND CLINICALS
--- NOTE | 2019-05-11 12:55 | NUR ---
MD ASKED FOR PHQ FORM TO BE COMPLETED, TOOK TO PT ROOM SCORED AND PUT PT LABELS AND FILE DI CHART FOR MD. PT SCORED A 7.
--- NOTE | 2019-05-11 13:01 | NUR ---
PT STATES HE HAS A HISTORY OF DEPRESSION AND SEVERAL YEARS AGO TOOK MEDICATION BUT IT HAS BEEN AWHILE SINCE HE HAS BEEN ON ANY MEDICATION.
--- NOTE | 2019-05-11 13:06 | NUR ---
aware of survey results
--- NOTE | 2019-05-11 13:43 | Myoview Stress Test ---
DATE OF STUDY: 05/08/2019 11:00:00 Stress Test - Treadmill ONLY STUDY: Lexiscan Myoview. FINDINGS: Due to inability to exercise, the patient was given Lexiscan 0.4 mg intravenously and shortly afterwards 11 mCi of technetium-99m Myoview. Later at rest, the patient was given 33 mCi of technetium-99m Myoview. Perfusion images were taken by rotational tomography. Comparison of resting and Lexiscan stress images show a fixed defect in the inferior and apical wall suggesting scar. There is no reversible perfusion defects to suggest any ischemia. Additionally, gated wall motion images were obtained. The left ventricular function is abnormal with global hypokinesis and calculated ejection fraction of 30%. FINAL IMPRESSION: 1. Abnormal Lexiscan Myoview for perfusion. 2. Inferoapical scar. 3. No demonstration of ischemia. 4. Abnormal left ventricular function with global hypokinesis and calculated ejection fraction of 30%. MD NICO Bello/JOSÉ /[id number] cc: Edmund Wood MD
[2019-05-11 14:03] LABS: BILIRUBIN,URINE LARGE (NEGATIVE); CLARITY,URINE CLOUDY (CLEAR); COLOR,URINE BROWN (YELLOW); KETONES,URINE NEGATIVE (NEGATIVE); LEUKOCYTE ESTERASE ,URINE NEGATIVE (NEGATIVE); NITRITE,URINE NEGATIVE (NEGATIVE); PROTEIN,URINE DIPSTICK 1+ (NEGATIVE); URINE UROBILINOGEN 1 mg/dL (0.2 - 1)
[2019-05-11 14:24] LABS: BACTERIA,URINE MODERATE /HPF; EPITHELIAL CELLS,URINE FEW /LPF
[2019-05-11 14:25] LABS: CREATININE,URINE RANDOM 131.74 mg/dL (63-166); TOTAL PROTEIN, URINE 41.7 mg/dL (1-14)
[2019-05-11] MEDS ORDERED: PAROXETINE HCL 20 MG TAB PO ONE (16:00)
[2019-05-11] MEDS ORDERED: GUAIFENESIN/DEXTROMETHORPHAN LIQD 5 ML UDC PO PRN (17:30)
--- NOTE | 2019-05-11 17:36 | Diagnostic Imaging Report ---
Renal ultrasound Clinical History: Acute renal failure Discussion: Sonographic evaluation of the kidneys is performed. The kidneys have normal size and cortical echogenicity. The right kidney measures 10.6 cm in length. The left kidney measures 12.1 cm in length. There is no focal renal mass, hydronephrosis, or shadowing renal calculus. No perinephric fluid collection is seen. Survey images of the bladder demonstrate no abnormality. Impression: Normal sonographic evaluation of the kidneys. Signed by: Dr. Grayson Clifford MD on 05/11/2019 5:32 PM
[2019-05-11] MEDS: SODIUM CHLORIDE 0.45% 1,000 ML IV SCH (18:02)
--- NOTE | 2019-05-11 19:00 | Consultation ---
DATE OF CONSULTATION: 05/11/2019 Nephrology Consultation REASON FOR CONSULTATION: Acute kidney injury. HISTORY OF PRESENT ILLNESS: This is a 68-year-old male with long history of diabetes mellitus and hypertension who was admitted with hyperosmolar hyperglycemic state. His BUN and creatinine on admission were 57 and 1.6 respectively. He was treated with aggressive IV fluids. Subsequently, Cardiology consultation revealed left ventricular ejection fraction of about 30% on echocardiogram. It turned out that he did have history of congestive heart failure for at least 10 years. During this admission, his BUN and creatinine have risen to the high of 2.4 and 67 today. The patient is not aware of any history of chronic kidney disease. Denies using much in the way of non-steroidal anti-inflammatory medications. Denies history of kidney newman or frequent urinary tract infections. Does admit to history of prostate problem. The patient admits to feeling better today since admission and denies any nausea, vomiting, diarrhea, abdominal or flank pain, shortness of breath, or any genitourinary symptoms. PAST MEDICAL HISTORY: Hypertension, diabetes, and diabetic neuropathy. PERSONAL AND SOCIAL HISTORY: Denies smoking or using alcohol. FAMILY HISTORY: Noncontributory. REVIEW OF SYSTEMS: Negative except as noted in HPI. PHYSICAL EXAMINATION: GENERAL: The patient is alert and oriented, and appears fairly comfortable, lying supine in bed. VITAL SIGNS: Blood pressure 124/67, pulse 84 per minute, he is afebrile. Respirations 17 per minute. Oxygen saturation on room air is 96%. His weight is 272 pounds. SKIN: Normal turgor. No lesions noted. NECK: Supple without jugular venous distention. No thyromegaly. CARDIAC: Normal S1 and S2 without murmur, rub, or gallop. CHEST: Clear to auscultation bilaterally. ABDOMEN: Soft, bowel sounds are present, nontender, EXTREMITIES: Without pitting edema or cyanosis. IMAGING: Ultrasound of the abdomen makes mention of a normal right kidney, but no mention that he has made of the left kidney. The patient is not aware of any previous nephrectomy. Chest x-ray showed right lung subsegmental atelectasis, but no mention of any pulmonary edema. LABORATORY DATA: His hemoglobin is 116, white count 9.6, and platelets 131,000. Most recent serum chemistries of today show sodium of 137, potassium 4.6, chloride 105, bicarbonate 19, BUN 67, and creatinine 2.4. IMPRESSION: 1. Acute kidney injury, likely related to volume-related issues and cardiorenal. 2. Probable chronic kidney disease related to diabetes and hypertension. Although, this has not confirmed. 3. Hypertension, appears controlled on enalapril and carvedilol. 4. Anemia, possibly secondary to chronic kidney disease. 5. Uncontrolled diabetes mellitus, treatment per Dr. Wood. 6. Congestive heart failure, Cardiology involved. 7. Mild metabolic acidosis, secondary to renal insufficiency. RECOMMENDATION: 1. I have ordered a urinalysis and urine protein to creatinine ratio to quantify any proteinuria as that would be suggestive of a chronic history of diabetic nephropathy. We may repeat a renal ultrasound to document presence of 2 kidneys without any obstruction. Avoid all known nephrotoxins, specially NSAIDs, and IV iodinated contrast as possible. 2. Agree with gentle IV fluids for now. Monitoring for any dyspnea. 3. Trend renal function daily and react accordingly. 4. We will follow the patient in hospital and offer recommendations as needed. Thank you very much for allowing me to participate in his care. Guilherme Mirza MD [facility]/MODL /[id number]
--- NOTE | 2019-05-11 19:28 | NUR ---
aware room available at [facility] Addendum: 05/11/19 at 1929 by MIKE FRANCISCO RN Danita nurse aware of room available at [facility]. Resting in bed. No s/s of acute distress noted. Side rails upx2, call light within reach, bed alarm on, at bedside.
[2019-05-11] MEDS: LACTULOSE SYRUP 20 GM/30 ML UDC PO SCH (21:00)
[2019-05-11] MEDS: ATORVASTATIN 40 MG TAB PO SCH (21:00)
[2019-05-11] MEDS: INSULIN GLARGINE 100 UNITS/ML VIAL SQ SCH (21:45)
[2019-05-12] VITALS (7 sets, daily range): BP systolic 104–164; BP diastolic 59–72
--- NOTE | 2019-05-12 04:58 | NUR ---
IM- progress note O/N: no events ROS: no cp/sob/dizziness/vision changes/skin rash/leg pain/back pain v/s revd PE tired appearing anicteric ns1s2 mod bs soft nt nd 1+ leg edema B/L skin dry n. affect a&ox3 lab/meds revd A/P: 68yoM DKA JAYDA HTN HLD DM-neuropathy CHF type? Peripheral edema PLAN IVF Insulin hba1c/lipids/osmoles Echo SCD Dispo: f/u labs; keep NPO. Hba1c/LDL 12.9/138 Uncontrolled DM; but periods of hypoglycemia here; adjust meds; lower dosings; f/u labs; 05/07/19 Hepatomegaly; f/u imaging in future; Combined diastolic and systolic CHF LVEF 20-25%; stress test vs [facility] pending; 05/08 snf eval; cardiac eval 05/09 fluids off at family request; some confusion; continue insulin; give 1/2NS at 50/hr; Hyperkalemia resolved with kayexalate; get KUB . SNF eval pending; 05/10 KUB negative; check renal fn; Further assessment by cardio shows LVEF 30%; no lifevest indicated; SNF pending; 05/11 check labs; titrate lantus to 7 units; ambulate pt. Confused; Low mood; check ammonia and check PHQ9 and P4 now; likely needs antidepressants; Rising BUN and JAYDA - consult nephrology 05/12 renal U/S normal; check BMP. Has bed at SNF- hold. Renal fn worsening; Edmund Wood MD, PhD.
[2019-05-12] MEDS: INSULIN REGULAR, HUMAN 100 UNIT/1 ML 3ML VIAL SQ SCH ×4 (08:30→21:20)
[2019-05-12] MEDS: DOCUSATE SODIUM 100 MG CAP PO SCH ×2 (09:00→17:15)
[2019-05-12] MEDS: LACTULOSE SYRUP 20 GM/30 ML UDC PO SCH ×2 (09:00→17:00)
[2019-05-12] MEDS: SENNOSIDES 8.6 MG TAB PO SCH ×2 (09:00→17:00)
[2019-05-12] MEDS: GABAPENTIN 300 MG CAP PO SCH ×3 (09:00→21:45)
[2019-05-12] MEDS: CARVEDILOL 12.5 MG TAB PO SCH ×2 (09:00→17:15)
[2019-05-12] MEDS: FERROUS SULFATE 325 MG TAB PO SCH ×2 (09:00→17:15)
[2019-05-12] MEDS: FAMOTIDINE 20 MG/2 ML VIAL IV SCH ×2 (09:30→17:15)
[2019-05-12 13:06] LABS: ANION GAP 17.7 mmol/L (8-16); CALCIUM 7.7 mg/dL (8.4-10.2); CREATININE, SERUM 2.78 mg/dL (0.72-1.25); POTASSIUM 4.7 mmol/L (3.5-5.1)
--- NOTE | 2019-05-12 13:30 | NUR ---
Notified Dr. Wood patient has not urinated this shift and bladder scan shows around 250 ml. Orders received to straight cath
--- NOTE | 2019-05-12 14:10 | NUR ---
Patient was straight cath and 300ml dark geno urine was received,
[2019-05-12] MEDS: SODIUM CHLORIDE 0.45% 1,000 ML IV SCH (14:25)
[2019-05-12] MEDS: CLOPIDOGREL BISULFATE 75 MG TAB PO SCH (17:15)
[2019-05-12] MEDS: PAROXETINE HCL 20 MG TAB PO SCH (17:15)
[2019-05-12] MEDS: BALSAM PERU/CASTOR OIL 60 GM OINT...G. TP SCH (17:15)
--- NOTE | 2019-05-12 17:36 | NUR ---
Nutrition Screen Note RD Recommendation for Physician: 1. Continue with current diet order of ADA Diet , monitor kidney fxn Plan of Care: RD following, monitoring for tolerance and adequacy Nutrition reason for involvement: Nutrition Risk Trigger Primary Diagnose(s): hyperosmolar non ketotic state PMH: Hypertension, diabetes, and diabetic neuropathy, CHF, possible CKD Ht: 70in Wt:272lbs BMI: 39.02 kg/m2 IBW:166lbs +/- 10% RD Assessment: (05/12) Chart reviewed. Labs and meds reviewed. 68 y/o M admitted with hyperosmolar hyperglycemic state. Visited patient in room. Pt reported feeling ok, fair appetite and intake. PTC showed ~25% of meal consumed. Patient noted not really interested in eating hospital food. Reportedly not following any special diet at home, noted eating fried foods on a regular basis. Patient reported some intermittent nausea, has not recently vomited. Reports mostly stable weight with a UBW of 200lbs. Denied any D/C or any difficulties with chewing/swallowing. Per pt dietary interview, has received some diet education in the past ~ 5 years ago, unable to recall previous nutrition related recommendations. RD provided with verbal nutrition education and handouts. Current Diet: ADA Diet Malnutrition Evaluation (05/12) The patient does not meet criteria for a specified degree of malnutrition at this time. Will re-evaluate at follow-up as appropriate. Diet Education Needs Assessment: Diet education indicated, educated patient on diabetic heart healthy diet. Learner(s): pt Barriers: none Cultural/Language Modifications: none Readiness: acceptance Method: verbal and handouts Topics: diabetic diet, carbohydrate rich foods, plate method, protein rich foods ,monitoring dietary sodium Understanding/Compliance: showed understanding , will require reinforcement Nutrition Care Level: LOW Signed: Mariya Murray, MS, RDN, LD
--- NOTE | 2019-05-12 17:54 | NUR ---
Dr. Wood was notified of patient's increase in creatinine 2.78 along with the family's concerns about the patient's speech and communication. I told Dr. Wood I have not observes any speech problems during my shift but the patient is very weak and does have trouble following commands at times. New orders received.
--- NOTE | 2019-05-12 19:39 | Diagnostic Imaging Report ---
EXAMINATION: Head CT without contrast. HISTORY:Altered mental status, weakness. COMPARISON:None. TECHNIQUE: Multidetector axial images were obtained from the foramen magnum to the vertex without contrast. The images were reconstructed using brain and bone algorithms. Thin section brain images were reformatted into coronal and sagittal planes. Dose modulation, iterative reconstruction, and/or weight based adjustment of the mA/kV was utilized to reduce the radiation dose to as low as reasonably achievable. Intravenous contrast: None IMAGE QUALITY: Acceptable. FINDINGS: Skull/scalp: No lytic or blastic. lesions. No surgical changes. Parenchyma: Nonspecific few, scattered supratentorial white matter hypodensity are likely related to small vessel ischemic changes. No acute hemorrhage, mass or acute major vascular territorial infarct. Arteries: No density suggestive of thrombosis. Dural sinuses: No abnormal density suggestive of thrombosis. Ventricles: Moderate compensated dilatation due to volume loss. No hydrocephalus. Extra-axial spaces: No abnormal density. Brain volume: Generalized age-related cerebral volume loss. Craniocervical junction: No mass, Chiari malformation, or basilar invagination. Sella: No mass. Paranasal/mastoid sinuses: Imaged portions unremarkable. IMPRESSION: No acute intracranial abnormality. Generalized age-related cerebral volume loss. Mild supratentorial white matter microvascular ischemic changes. Signed by: Dr. Mag Conner M.D. on 05/12/2019 7:36 PM
[2019-05-12] MEDS: INSULIN GLARGINE 100 UNITS/ML VIAL SQ SCH (21:20)
[2019-05-12] MEDS: ATORVASTATIN 40 MG TAB PO SCH (21:45)
[2019-05-13] VITALS (8 sets, daily range): BP systolic 99–156; BP diastolic 51–92
[2019-05-13] MEDS: INSULIN REGULAR, HUMAN 100 UNIT/1 ML 3ML VIAL SQ SCH ×4 (08:30→21:55)
[2019-05-13] MEDS: SENNOSIDES 8.6 MG TAB PO SCH ×2 (09:00→17:00)
[2019-05-13] MEDS: LACTULOSE SYRUP 20 GM/30 ML UDC PO SCH ×2 (09:00→17:00)
[2019-05-13] MEDS: BALSAM PERU/CASTOR OIL 60 GM OINT...G. TP SCH (09:00)
[2019-05-13] MEDS: PAROXETINE HCL 20 MG TAB PO SCH (10:00)
[2019-05-13] MEDS: FERROUS SULFATE 325 MG TAB PO SCH ×2 (10:00→17:00)
[2019-05-13] MEDS: CLOPIDOGREL BISULFATE 75 MG TAB PO SCH (10:00)
[2019-05-13] MEDS: FAMOTIDINE 20 MG/2 ML VIAL IV SCH ×2 (10:00→17:45)
[2019-05-13] MEDS: CARVEDILOL 12.5 MG TAB PO SCH ×2 (10:00→15:50)
[2019-05-13] MEDS: GABAPENTIN 300 MG CAP PO SCH ×3 (10:00→21:55)
[2019-05-13] MEDS: DOCUSATE SODIUM 100 MG CAP PO SCH ×2 (10:00→17:00)
[2019-05-13] MEDS: SODIUM CHLORIDE 0.45% 1,000 ML IV SCH (10:20)
--- NOTE | 2019-05-13 10:25 | NUR ---
IM- progress note O/N: no events ROS: no cp/sob/dizziness/vision changes/skin rash/leg pain/back pain v/s revd PE tired appearing anicteric ns1s2 mod bs soft nt nd 1+ leg edema B/L skin dry n. affect a&ox3 lab/meds revd A/P: 68yoM DKA JAYDA HTN HLD DM-neuropathy CHF type? Peripheral edema PLAN IVF Insulin hba1c/lipids/osmoles Echo SCD Dispo: f/u labs; keep NPO. Hba1c/LDL 12.9/138 Uncontrolled DM; but periods of hypoglycemia here; adjust meds; lower dosings; f/u labs; 05/07/19 Hepatomegaly; f/u imaging in future; Combined diastolic and systolic CHF LVEF 20-25%; stress test vs [facility] pending; 05/08 snf eval; cardiac eval 05/09 fluids off at family request; some confusion; continue insulin; give 1/2NS at 50/hr; Hyperkalemia resolved with kayexalate; get KUB . SNF eval pending; 05/10 KUB negative; check renal fn; Further assessment by cardio shows LVEF 30%; no lifevest indicated; SNF pending; 05/11 check labs; titrate lantus to 7 units; ambulate pt. Confused; Low mood; check ammonia and check PHQ9 and P4 now; likely needs antidepressants; Rising BUN and JAYDA - consult nephrology 05/12 renal U/S normal; check BMP. Has bed at SNF- hold. Renal fn worsening; 05/13 check renal fn; CT brain negative; check MRI; Uremic Encephalopathy. Edmund Wood MD, PhD.
[2019-05-13 11:47] LABS: ANION GAP 16.7 mmol/L (8-16); CALCIUM 7.7 mg/dL (8.4-10.2); CREATININE, SERUM 3.16 mg/dL (0.72-1.25); POTASSIUM 4.7 mmol/L (3.5-5.1)
--- NOTE | 2019-05-13 13:01 | NUR ---
Paged nephrology regarding BMP results. Awaiting call back
--- NOTE | 2019-05-13 18:02 | NUR ---
Patient has not voided on shift, bladder scanned at bedside shows 370ml. Notified Dr. Wood, orders received to place alonzo catheter
--- NOTE | 2019-05-13 18:39 | NUR ---
16f alonzo catheter was inserted , 350ml dark geno, thick, cloudy urine was received
[2019-05-13] MEDS: INSULIN GLARGINE 100 UNITS/ML VIAL SQ SCH (21:55)
[2019-05-13] MEDS: ATORVASTATIN 40 MG TAB PO SCH (21:55)
[2019-05-14] VITALS (7 sets, daily range): BP systolic 90–118; BP diastolic 52–85
--- NOTE | 2019-05-14 06:05 | NUR ---
SPOKE WITH DR KEITH ABOUT LOW URINE OUT PUT. ORDER TO STOP IV FLUID AND CALL BACK FOR AM BMP RESULT.
--- NOTE | 2019-05-14 07:11 | NUR ---
IM- progress note O/N: no events ROS: no cp/sob/dizziness/vision changes/skin rash/leg pain/back pain v/s revd PE tired appearing anicteric ns1s2 mod bs soft nt nd 1+ leg edema B/L skin dry n. affect a&ox3 lab/meds revd A/P: 68yoM DKA JAYDA HTN HLD DM-neuropathy CHF type? Peripheral edema PLAN IVF Insulin hba1c/lipids/osmoles Echo SCD Dispo: f/u labs; keep NPO. Hba1c/LDL 12.9/138 Uncontrolled DM; but periods of hypoglycemia here; adjust meds; lower dosings; f/u labs; 05/07/19 Hepatomegaly; f/u imaging in future; Combined diastolic and systolic CHF LVEF 20-25%; stress test vs [facility] pending; 05/08 snf eval; cardiac eval 05/09 fluids off at family request; some confusion; continue insulin; give 1/2NS at 50/hr; Hyperkalemia resolved with kayexalate; get KUB . SNF eval pending; 05/10 KUB negative; check renal fn; Further assessment by cardio shows LVEF 30%; no lifevest indicated; SNF pending; 05/11 check labs; titrate lantus to 7 units; ambulate pt. Confused; Low mood; check ammonia and check PHQ9 and P4 now; likely needs antidepressants; Rising BUN and JAYDA - consult nephrology 05/12 renal U/S normal; check BMP. Has bed at SNF- hold. Renal fn worsening; 05/13 check renal fn; CT brain negative; check MRI; Uremic Encephalopathy. 05/14 f/u labs- renal fn worse;reduce gabapentin. Edmund Wood MD, PhD.
[2019-05-14] MEDS: INSULIN REGULAR, HUMAN 100 UNIT/1 ML 3ML VIAL SQ SCH ×4 (07:30→23:48)
[2019-05-14 07:40] LABS: ANION GAP 14.6 mmol/L (8-16); CALCIUM 7.3 mg/dL (8.4-10.2); CREATININE, SERUM 3.87 mg/dL (0.72-1.25); POTASSIUM 4.6 mmol/L (3.5-5.1)
--- NOTE | 2019-05-14 08:22 | NUR ---
paged at this time regarding lab results. Awaiting call back.
--- NOTE | 2019-05-14 08:32 | NUR ---
Call back returned from . No new orders at this time.
[2019-05-14] MEDS: GABAPENTIN 300 MG CAP PO SCH (09:00)
[2019-05-14] MEDS: PAROXETINE HCL 20 MG TAB PO SCH (09:00)
[2019-05-14] MEDS: CARVEDILOL 12.5 MG TAB PO SCH ×2 (09:00→17:00)
[2019-05-14] MEDS: SENNOSIDES 8.6 MG TAB PO SCH ×2 (09:00→17:00)
[2019-05-14] MEDS: LACTULOSE SYRUP 20 GM/30 ML UDC PO SCH ×2 (09:00→17:00)
[2019-05-14] MEDS: FERROUS SULFATE 325 MG TAB PO SCH ×2 (09:00→18:08)
[2019-05-14] MEDS: CLOPIDOGREL BISULFATE 75 MG TAB PO SCH (09:00)
[2019-05-14] MEDS: DOCUSATE SODIUM 100 MG CAP PO SCH ×2 (09:00→18:08)
[2019-05-14] MEDS: FAMOTIDINE 20 MG/2 ML VIAL IV SCH (09:31)
[2019-05-14] MEDS: BALSAM PERU/CASTOR OIL 60 GM OINT...G. TP SCH (09:37)
[2019-05-14] MEDS ORDERED: SODIUM CHLORIDE 0.9% 500ML 500 ML ONE (12:33)
[2019-05-14] MEDS ORDERED: SODIUM CHLORIDE 0.9% 500ML 500 ML IV ONE (12:35)
--- NOTE | 2019-05-14 12:35 | NUR ---
Bolus of NS administered at this time, per MD order. Will follow up with result of BP.
--- NOTE | 2019-05-14 12:39 | Diagnostic Imaging Report ---
MRI BRAIN WO HISTORY: Altered mental status COMPARISON: Head CT 05/12/2019 TECHNIQUE: Sagittal T2, axial T2, multiplanar 3-D T1, axial T2/FLAIR, axial gradient echo (or susceptibility weighted), and axial diffusion weighted MR images of the brain were obtained without contrast. DISCUSSION: Scalp/bone marrow: Unremarkable. Brain sulci: Prominent. Ventricles: Compensatory dilatation. Extra-axial spaces: No masses or fluid collections. Parenchyma: Scattered T2/FLAIR hyperintense foci throughout the supratentorial white matter are likely chronic microvascular ischemic changes. Subtle areas of focal encephalomalacia in the right temporal pole, right orbitofrontal region, and left lateral temporal lobe are likely from remote trauma. Otherwise, no mass, hemorrhage, or acute vascular insults. Vessels: Normal flow voids in major arteries and veins. Sellar/Suprasellar region: No abnormalities. Craniocervical junction: No abnormalities. Incidental findings: Bilateral ocular lens replacement. IMPRESSION: 1. No acute intracranial abnormalities. 2. Mild supratentorial chronic microvascular ischemic change. 3. Mild generalized cerebral volume loss. 4. Subtle focal encephalomalacia in the right temporal pole, right orbitofrontal region, and left lateral temporal lobe, likely from remote trauma. Signed by: Dr. Sujit Murray M.D. on 05/14/2019 12:36 PM
--- NOTE | 2019-05-14 13:42 | NUR ---
BP at this time is 92/60. Will initiate with second bolus of 500cc NS. Will recheck BP after infusion.
--- NOTE | 2019-05-14 13:50 | NUR ---
WOUNDCARE CONSULT 68 YO MALE FOR SACRAL WOUND PATIENT PARTIAL THICKNESS SKIN TEAR WAS ASSESSED PREVIOUSLY 05/07/19 PATIENT WOUND REASSESSED SHOWS INCREASED HEALING NO OPEN AREAS NOTED TO SACRAL CREASE AT THIS TIME . RECOMENDATIONS: NURSING TO CONTINUE STRICT PUP PRECAUTIONS AND INTERVENTIONS NURSING TO MAINTAIN PT ON ALTERNATING PRESSURE SURFACE NURSING TO CONTINUE WITH CURRENT DAILY WOUND CARE ORDERS
--- NOTE | 2019-05-14 14:36 | NUR ---
BP after second bolus of NS, 94/67. Will administer NS at 75cc/hr per MD order.
[2019-05-14] MEDS: FAMOTIDINE 20 MG TAB PO SCH (18:08)
[2019-05-14] MEDS: SODIUM CHLORIDE 0.9% 1000ML 1,000 ML IV SCH (18:08)
[2019-05-14] MEDS ORDERED: GABAPENTIN 300 MG CAP PO SCH (21:00)
[2019-05-14] MEDS: INSULIN GLARGINE 100 UNITS/ML VIAL SQ SCH (21:30)
[2019-05-14] MEDS: GABAPENTIN 100 MG CAP PO SCH (22:04)
[2019-05-14] MEDS: ATORVASTATIN 40 MG TAB PO SCH (22:04)
[2019-05-15] VITALS (7 sets, daily range): BP systolic 84–98; BP diastolic 55–63
[2019-05-15] MEDS: SODIUM CHLORIDE 0.9% 1000ML 1,000 ML IV SCH ×2 (05:57→17:55)
[2019-05-15 06:03] LABS: ANION GAP 20.1 mmol/L (8-16); CREATININE, SERUM 4.38 mg/dL (0.72-1.25); POTASSIUM 5.1 mmol/L (3.5-5.1)
[2019-05-15 06:21] LABS: CALCIUM 6.9 mg/dL (8.4-10.2)
--- NOTE | 2019-05-15 06:39 | NUR ---
IM- progress note O/N: no events ROS: no cp/sob/dizziness/vision changes/skin rash/leg pain/back pain v/s revd PE tired appearing anicteric ns1s2 mod bs soft nt nd 1+ leg edema B/L skin dry n. affect a&ox3 lab/meds revd A/P: 68yoM DKA JAYDA HTN HLD DM-neuropathy CHF type? Peripheral edema PLAN IVF Insulin hba1c/lipids/osmoles Echo SCD Dispo: f/u labs; keep NPO. Hba1c/LDL 12.9/138 Uncontrolled DM; but periods of hypoglycemia here; adjust meds; lower dosings; f/u labs; 05/07/19 Hepatomegaly; f/u imaging in future; Combined diastolic and systolic CHF LVEF 20-25%; stress test vs [facility] pending; 05/08 snf eval; cardiac eval 05/09 fluids off at family request; some confusion; continue insulin; give 1/2NS at 50/hr; Hyperkalemia resolved with kayexalate; get KUB . SNF eval pending; 05/10 KUB negative; check renal fn; Further assessment by cardio shows LVEF 30%; no lifevest indicated; SNF pending; 05/11 check labs; titrate lantus to 7 units; ambulate pt. Confused; Low mood; check ammonia and check PHQ9 and P4 now; likely needs antidepressants; Rising BUN and JAYDA - consult nephrology 05/12 renal U/S normal; check BMP. Has bed at SNF- hold. Renal fn worsening; 05/13 check renal fn; CT brain negative; check MRI; Uremic Encephalopathy. 05/14 f/u labs- renal fn worse;reduce gabapentin. 05/15 bicarbs worse; GFR worse; change fluids to 1/2NS with bicarbs; d/w renal. MRI brain negative; Edmund Wood MD, PhD.
--- NOTE | 2019-05-15 06:45 | NUR ---
Received orders from Dr. Wood.
--- NOTE | 2019-05-15 07:10 | NUR ---
pt asleep resp even and unlabored at this time no distress noted, pt easily aroused to name and touch, no c/o pain when asked, call light in reach.
[2019-05-15] MEDS ORDERED: SODIUM BICARBONATE 8.4% 50 ML in SODIUM CHLORIDE 0.45% 1,000 ML IV SCH (07:30)
[2019-05-15] MEDS ORDERED: CALCIUM GLUCONATE 10% INJ 9.3 MEQ in SODIUM CHLORIDE 0.9% 100 ML 100 ML IV ONE (07:30)
[2019-05-15] MEDS: CARVEDILOL 12.5 MG TAB PO SCH ×2 (09:00→17:00)
[2019-05-15] MEDS: CLOPIDOGREL BISULFATE 75 MG TAB PO SCH (10:39)
[2019-05-15] MEDS: FERROUS SULFATE 325 MG TAB PO SCH ×2 (10:39→18:13)
[2019-05-15] MEDS: SENNOSIDES 8.6 MG TAB PO SCH ×2 (10:39→18:13)
[2019-05-15] MEDS: DOCUSATE SODIUM 100 MG CAP PO SCH ×2 (10:39→18:12)
[2019-05-15] MEDS: GABAPENTIN 100 MG CAP PO SCH ×3 (10:39→21:00)
[2019-05-15] MEDS: PAROXETINE HCL 20 MG TAB PO SCH (10:39)
[2019-05-15] MEDS: LACTULOSE SYRUP 20 GM/30 ML UDC PO SCH ×2 (10:39→17:00)
[2019-05-15] MEDS: FAMOTIDINE 20 MG TAB PO SCH ×2 (10:40→18:15)
[2019-05-15] MEDS: BALSAM PERU/CASTOR OIL 60 GM OINT...G. TP SCH (10:40)
[2019-05-15] MEDS: INSULIN REGULAR, HUMAN 100 UNIT/1 ML 3ML VIAL SQ SCH ×4 (10:51→21:00)
--- NOTE | 2019-05-15 12:14 | NUR ---
Dr. Roy consult IR for pt to have dialysis catheter.
--- NOTE | 2019-05-15 12:34 | NUR ---
pt was brief, was changed, and repositioned at this time no distress noted, bed alarm wind operations supervisor light in reach.
--- NOTE | 2019-05-15 14:30 | NUR ---
PT HERE TO SIGN CONSENT FO TEMPORARY DIALYSIS CATHETER PLACEMENT.
--- NOTE | 2019-05-15 15:11 | Progress Note ---
DATE: 05/15/2019 SUBJECTIVE: The patient is increasingly lethargic. Complaining of nausea and has an obvious uremic breath. OBJECTIVE: GENERAL: Looks weak and lethargic, but arousable. VITAL SIGNS: Blood pressure is 116/62, pulse is 83 per minute, he is afebrile, and respirations 20 per minute. SKIN: Normal turgor. NECK: Supple without jugular venous distention. CHEST: Auscultation possible only anterolaterally, reveals bilateral breath sounds. I do not hear any wheezing, rhonchi, or crepitations. CARDIOVASCULAR: Shows normal S1, S2 without murmur, rub, or gallop. ABDOMEN: Soft, depressible, nontender. EXTREMITIES: Have 2+ pitting edema bilaterally. NEUROLOGICAL: The patient is arousable and oriented to self. LABORATORY DATA: Last hemoglobin on 05/11 was 11.6 with normal white count and platelet count of 131,000. Most recent chemistries from this morning shows sodium of 132, potassium of 5.1, chloride 103, bicarb 14, BUN 112, creatinine 4.3, glucose 224, total calcium 6.9. IMPRESSION: Acute kidney injury, etiology is still not clear. His renal ultrasound has been normal. Urinalysis has not been active. Only minimal protein. No obvious nephrotoxic insult like IV iodinated contrast or medications. However, he is clearly getting uremic from progressive kidney failure. 1. We will start hemodialysis today using a temporary hemodialysis catheter. 2. Metabolic acidosis, secondary to #1. 3. Hypertension, he has been off his lisinopril and carvedilol here with running lower blood pressures. This may be a function of his cardiomyopathy since echocardiogram shows [id number] left ventricular dysfunction with ejection fraction 25% to 30%. We will discontinue IV fluid in view of the growing edema. I discussed briefly hemodialysis treatment with the patient, who agrees to proceed. The is being contacted by nursing, who will obtain a formal dialysis consent from her. IR has been consulted for placement of the dialysis catheter. PLAN: Plan will be to dialyze him for 3 straight days, increasing in duration with BMP checks daily. This is still acute kidney injury, which should be reversible. Guilherme Mirza MD [facility]/MODJenn[facility] /[id number]
[2019-05-15 17:01] LABS: INR 1.6; PROTHROMBIN TIME 19.7 seconds (11.9-14.5)
--- NOTE | 2019-05-15 17:09 | NUR ---
PT OFF UNIT FOR PROCEDURE.
--- NOTE | 2019-05-15 18:20 | Diagnostic Imaging Report ---
Nontunneled dialysis catheter placement, 05/15/2019. History: Renal failure. Comparison: None available. Customer Account Representative: Dr. Carranza. Medication: 5 cc of 1% lidocaine without epinephrine. Conscious sedation: None. EBL: < 2 cc. Specimen: None. Fluoroscopy time: 0.2 minutes. Fluoroscopy dose: 2.8 mGy (AVIS) Technique: After informed consent and timeout procedure, the access site was prepped and draped with the standard maximal sterile barrier technique. Ultrasound images demonstrated vessel patency. Images were documented within PACS. The skin was anesthetized with lidocaine. The right internal jugular vein was accessed using a micropuncture set with ultrasound guidance. A 0.035-in. wire was advanced through the micropuncture sheath into the vein. The wire was advanced through the atrium into the IVC using fluoroscopic guidance. The tract was dilated. A 13 German 15 cm triple-lumen Trialysis catheter was advanced over the wire into the vessel. The catheter was secured with suture. Dressing was applied. The patient tolerated the procedure well without evidence of complication. Postprocedure image demonstrates the line to terminate near the cavoatrial junction. IMPRESSION: Successful nontunneled dialysis catheter placement with ultrasound and fluoroscopic guidance guidance. Catheter is ready for immediate use. Signed by: Lester Carranza on 05/15/2019 6:16 PM
[2019-05-15] MEDS ORDERED: MIDODRINE 2.5 MG TAB PO STA (18:24)
--- NOTE | 2019-05-15 18:25 | NUR ---
pt returned to unit, resp even and unlabored at this time , pt site clean dry and intact.
--- NOTE | 2019-05-15 18:27 | NUR ---
Dr. Roy was called about pt b/p /, 81 pt sat 95 % room air pt a symptomatic. Dr. Yates conductor symphonic orchestra orders given.
[2019-05-15] MEDS: MIDODRINE HCL 5 MG TABLET PO SCH (18:45)
[2019-05-15] MEDS ORDERED: SODIUM BICARBONATE 8.4% INJ 50 ML SYR IV ONE (18:45)
[2019-05-15] MEDS ORDERED: SODIUM CHLORIDE 0.9% 1000ML 1,000 ML ONE (18:52)
[2019-05-15] MEDS ORDERED: MANNITOL 25% 12.5GM/50ML 100 ML ONE (18:54)
[2019-05-15] MEDS ORDERED: HEPARIN SOD (PORCINE) 1000 UNIT/ML SDV IV PRN (19:00)
[2019-05-15] MEDS ORDERED: MANNITOL 25% 12.5GM/50 ML VIAL IV PRN (19:00)
[2019-05-15] MEDS ORDERED: SODIUM CHLORIDE 0.9% 1000ML 2,000 ML IV PRN (19:00)
[2019-05-15] MEDS ORDERED: ALBUMIN 25% 12.5GM 0.25 GM/ML BTL IV PRN (19:00)
--- NOTE | 2019-05-15 19:00 | NUR ---
Dialysis nurse here to start pt dialysis.
--- NOTE | 2019-05-15 19:45 | NUR ---
report given to oncoming nurse. pt stable.
--- NOTE | 2019-05-15 19:50 | NUR ---
PT IS RESTING IN BED GETTING DIALYSIS. RESPIRATION IS EVEN AND UNLABORED, NO DISTRESS NOTED. BED IN THE LOWEST POSITION, LOCKED, BED ALARM ON, AND CALL LIGHT WITHIN REACH. WILL CONTINUE TO MONITOR.
[2019-05-15] MEDS: ATORVASTATIN 40 MG TAB PO SCH (21:00)
[2019-05-15] MEDS: INSULIN GLARGINE 100 UNITS/ML VIAL SQ SCH (21:00)
--- NOTE | 2019-05-15 22:01 | NUR ---
PT IS ROUSABLE WITH STERNAL RUB AND IS REFUSING TO OPEN HIS MOUTH TO TAKE HIS MEDICATION. WILL CONTINUE TO MONITOR.
[2019-05-16] VITALS (8 sets, daily range): BP systolic 93–107; BP diastolic 47–56
--- NOTE | 2019-05-16 06:53 | NUR ---
IM- progress note O/N: no events ROS: no cp/sob/dizziness/vision changes/skin rash/leg pain/back pain v/s revd PE tired appearing anicteric ns1s2 mod bs soft nt nd 1+ leg edema B/L skin dry n. affect a&ox3 lab/meds revd A/P: 68yoM DKA JAYDA HTN HLD DM-neuropathy CHF type? Peripheral edema PLAN IVF Insulin hba1c/lipids/osmoles Echo SCD Dispo: f/u labs; keep NPO. Hba1c/LDL 12.9/138 Uncontrolled DM; but periods of hypoglycemia here; adjust meds; lower dosings; f/u labs; 05/07/19 Hepatomegaly; f/u imaging in future; Combined diastolic and systolic CHF LVEF 20-25%; stress test vs [facility] pending; 05/08 snf eval; cardiac eval 05/09 fluids off at family request; some confusion; continue insulin; give 1/2NS at 50/hr; Hyperkalemia resolved with kayexalate; get KUB . SNF eval pending; 05/10 KUB negative; check renal fn; Further assessment by cardio shows LVEF 30%; no lifevest indicated; SNF pending; 05/11 check labs; titrate lantus to 7 units; ambulate pt. Confused; Low mood; check ammonia and check PHQ9 and P4 now; likely needs antidepressants; Rising BUN and JAYDA - consult nephrology 05/12 renal U/S normal; check BMP. Has bed at SNF- hold. Renal fn worsening; 05/13 check renal fn; CT brain negative; check MRI; Uremic Encephalopathy. 05/14 f/u labs- renal fn worse;reduce gabapentin. 05/15 bicarbs worse; GFR worse; change fluids to 1/2NS with bicarbs; d/w renal. MRI brain negative; 05/16 HD plans for 3 days; f/u labs; Stated HD yesterday. Confused; sternal rub overnight to awake; Edmund Wood MD, PhD.
[2019-05-16 07:08] LABS: ANION GAP 18.5 mmol/L (8-16); CALCIUM 7.6 mg/dL (8.4-10.2); CREATININE, SERUM 4.63 mg/dL (0.72-1.25); POTASSIUM 4.5 mmol/L (3.5-5.1)
--- NOTE | 2019-05-16 07:19 | NUR ---
Received bedside report from night nurse. Patient resting in bed, no signs of distress. All safety measures in place. Will continue to monitor.
[2019-05-16] MEDS ORDERED: MIDODRINE 2.5 MG TAB PO SCH (09:00)
[2019-05-16] MEDS: GABAPENTIN 100 MG CAP PO SCH (09:00)
[2019-05-16] MEDS: CARVEDILOL 12.5 MG TAB PO SCH (09:00)
[2019-05-16] MEDS: PAROXETINE HCL 20 MG TAB PO SCH (09:12)
[2019-05-16] MEDS: CLOPIDOGREL BISULFATE 75 MG TAB PO SCH (09:12)
[2019-05-16] MEDS: MIDODRINE HCL 5 MG TABLET PO SCH ×3 (09:12→17:48)
[2019-05-16] MEDS: FERROUS SULFATE 325 MG TAB PO SCH ×2 (09:13→17:48)
[2019-05-16] MEDS: FAMOTIDINE 20 MG TAB PO SCH ×2 (09:14→17:48)
[2019-05-16] MEDS: DOCUSATE SODIUM 100 MG CAP PO SCH (09:15)
[2019-05-16] MEDS: SENNOSIDES 8.6 MG TAB PO SCH (09:15)
[2019-05-16] MEDS: INSULIN REGULAR, HUMAN 100 UNIT/1 ML 3ML VIAL SQ SCH ×4 (09:17→21:00)
[2019-05-16] MEDS: LACTULOSE SYRUP 20 GM/30 ML UDC PO SCH ×2 (09:17→17:00)
[2019-05-16] MEDS: BALSAM PERU/CASTOR OIL 60 GM OINT...G. TP SCH (10:39)
[2019-05-16] MEDS ORDERED: SODIUM CHLORIDE 0.9% 1000ML 1,000 ML ONE (13:56)
[2019-05-16] MEDS ORDERED: SODIUM CHLORIDE 0.9% 1000ML 2,000 ML IV PRN (15:45)
[2019-05-16] MEDS ORDERED: HEPARIN SOD (PORCINE) 1000 UNIT/ML SDV IV PRN (15:45)
--- NOTE | 2019-05-16 19:30 | NUR ---
Patient visited in room during nursing rounds. Patient alert and oriented x0-1. Pt able to open eyes and say few words but easily falls back to sleep. Right neck trialysis noted. Pt had dialysis today and scheduled for dialysis tomorrow. Bilateral upper and bilateral lower extremities edematous. Extremities elevated with pillows. Wild in place for strict I & Os and urinary retention. Multiple wounds noted on sacrum (stage 2 ulcer), left knee (abrasion), both buttocks (stage 2 ulcer) and all covered with Allevyn dressing. Pt being turned Q2hrs. Call balderas within reach. Bed alarm active.
[2019-05-16] MEDS: ATORVASTATIN 40 MG TAB PO SCH (21:00)
[2019-05-16] MEDS: INSULIN GLARGINE 100 UNITS/ML VIAL SQ SCH (21:00)
[2019-05-17] VITALS (8 sets, daily range): BP systolic 88–116; BP diastolic 50–57
--- NOTE | 2019-05-17 06:35 | NUR ---
IM- progress note O/N: no events ROS: no cp/sob/dizziness/vision changes/skin rash/leg pain/back pain v/s revd PE tired appearing anicteric ns1s2 mod bs soft nt nd 1+ leg edema B/L skin dry n. affect a&ox3 lab/meds revd A/P: 68yoM DKA JAYDA HTN HLD DM-neuropathy CHF type? Peripheral edema PLAN IVF Insulin hba1c/lipids/osmoles Echo SCD Dispo: f/u labs; keep NPO. 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 SNF eval pending; 05/10 KUB negative; check renal fn; Further assessment by cardio shows LVEF 30%; no lifevest indicated; SNF pending; 05/11 check labs; titrate lantus to 7 units; ambulate pt. Confused; Low mood; check ammonia and check PHQ9 and P4 now; likely needs antidepressants; Rising BUN and JAYDA - consult nephrology 05/12 renal U/S normal; check BMP. Has bed at SNF- hold. Renal fn worsening; 05/13 check renal fn; CT brain negative; check MRI; Uremic Encephalopathy. 05/14 f/u labs- renal fn worse;reduce gabapentin. 05/15 bicarbs worse; GFR worse; change fluids to 1/2NS with bicarbs; d/w renal. MRI brain negative; 05/16 HD plans for 3 days; f/u labs; Stated HD yesterday. Confused; sternal rub overnight to awake; 05/17 labs pending; d/w ; move to ICU. Edmund Wood MD, PhD.
[2019-05-17 06:49] LABS: CALCIUM 7.8 mg/dL (8.4-10.2); CREATININE, SERUM 4.29 mg/dL (0.72-1.25)
--- NOTE | 2019-05-17 07:07 | NUR ---
Received bedside report from night nurse. Patient resting in bed, no signs of distress at this time. All safety measures in place. Will continue to monitor.
--- NOTE | 2019-05-17 08:00 | NUR ---
Dr. Wood at bedside rounding on patient, notified him of manual bp 88/52 this am and need to place patient on 02. 2.5l NC. Patient continues to be lethargic, AMS, not responding appropriately.
[2019-05-17 08:30] LABS: BASOPHILS % 0.1 % (0.0-1.0); EOSINOPHILS % 0.1 % (0.0-6.0); HEMATOCRIT 33.1 % (38.2-49.6); HEMOGLOBIN 11.8 g/dL (14.0-18.0); LYMPHOCYTES # (AUTO) 0.9 (1.0-3.2); LYMPHOCYTES % 5.8 % (18.0-39.1); MEAN CORPUSCULAR HEMOGLOBIN 26.1 pg (28-32); MEAN CORPUSCULAR HGB CONC 35.6 g/dL (31-35); MEAN CORPUSCULAR VOLUME 73.2 fL (81-99); MONOCYTES # (AUTO) 1.4 (0.2-0.8); NEUTROPHILS # (AUTO) 12.7 (2.1-6.9); NEUTROPHILS % 84.4 % (38.7-80.0); PLATELET COUNT 105 x10e3/uL (140-360); RED BLOOD COUNT 4.52 x10e6/uL (4.3-5.7); RED CELL DISTRIBUTION WIDTH 18.6 % (11.7-14.4)
[2019-05-17] MEDS: LACTULOSE SYRUP 20 GM/30 ML UDC PO SCH ×2 (08:47→17:00)
[2019-05-17] MEDS: CLOPIDOGREL BISULFATE 75 MG TAB PO SCH (08:47)
[2019-05-17] MEDS: INSULIN REGULAR, HUMAN 100 UNIT/1 ML 3ML VIAL SQ SCH ×4 (08:47→21:00)
[2019-05-17] MEDS: FAMOTIDINE 20 MG TAB PO SCH (08:47)
[2019-05-17] MEDS: FERROUS SULFATE 325 MG TAB PO SCH ×2 (08:47→17:00)
[2019-05-17] MEDS: MIDODRINE HCL 5 MG TABLET PO SCH ×3 (08:47→17:00)
[2019-05-17] MEDS: PAROXETINE HCL 20 MG TAB PO SCH (08:47)
--- NOTE | 2019-05-17 09:00 | NUR ---
Dr. Wood notified of increase in WBC to 15, new orders received. Patient is afebrile
[2019-05-17] MEDS: BALSAM PERU/CASTOR OIL 60 GM OINT...G. TP SCH (09:47)
[2019-05-17] MEDS ORDERED: SODIUM CHLORIDE 0.9% 250ML 250 ML IV PRN (10:45)
[2019-05-17] MEDS ORDERED: VANCOMYCIN 1GM/NS 250 ML 250 ML IV STA (12:04)
--- NOTE | 2019-05-17 12:05 | NUR ---
Dr. Mirza called to check on patient status, he said he spoke with the dialysis nurse. He stated he is "going to call Dr. Wood" and discuss possibly transferring to ICU.
--- NOTE | 2019-05-17 12:15 | NUR ---
Per Dialysis nurse, she spoke to steel shot header operator and there will be no dialysis today due to BP 80/52.
--- NOTE | 2019-05-17 12:15 | NUR ---
Dr. Wood called and gave orders for one time dose of Vancomycin. I notified him of patient's BP 80/52 and no dialysis will be done today and patient continues to be altered, not responding appropriately. Orders received to transfer to ICU
--- NOTE | 2019-05-17 12:25 | NUR ---
Patient's , Selam, was notified of patient condition, and plan to transfer to ICU
[2019-05-17] MEDS: CEFEPIME 1GM/NS 0.9% 50 ML 50 ML IV SCH (14:30)
--- NOTE | 2019-05-17 16:11 | NUR ---
Patient was transferred to ICU. His family is here.
--- NOTE | 2019-05-17 16:46 | NUR ---
pulmonary/ccm [id number] jaundice, elevated INR. hx abnormal liver Us imaging. check liver. r/o sepsis transfer to ICU to assist with dialysis/hypotension issues
[2019-05-17] MEDS ORDERED: THIAMINE HCL 100 MG TAB PO ONE (17:30)
[2019-05-17] MEDS ORDERED: SODIUM CHLORIDE 0.9% 1000ML 1,000 ML ONE (17:35)
[2019-05-17 17:41] LABS: ALBUMIN 1.5 g/dL (3.5-5.0)
[2019-05-17] MEDS ORDERED: NOREPINEPHRINE 8 MG/D5W 250 ML 250 ML ONE (17:52)
--- NOTE | 2019-05-17 17:55 | Diagnostic Imaging Report ---
Chest, 1 view, 05/17/2019. History: JAYDA. Comparison: None available. Findings: The cardiomediastinal silhouette and pulmonary vasculature are prominent with patchy bilateral lower lobe opacities which partially obscure both hemidiaphragms. Right IJ temporally dialysis catheter is present. There are no acute osseous or soft tissue abnormalities. Impression: Findings suggestive of CHF with bibasilar atelectasis. Signed by: Lester Carranza on 05/17/2019 5:52 PM
[2019-05-17 17:59] LABS: BILIRUBIN,DIRECT 10.5 mg/dL (0.0-0.5)
[2019-05-17] MEDS ORDERED: NOREPINEPHRINE INJ 4MG/4ML 8 MG in DEXTROSE 5% 250ML 250 ML IV PRN (18:00)
[2019-05-17 18:02] LABS: THYROID STIMULATING HORMONE 0.688 uIU/mL (0.350-4.940)
[2019-05-17 18:15] LABS: FOLATE 7.5 ng/mL (7.0-15.4)
[2019-05-17] MEDS: INSULIN GLARGINE 100 UNITS/ML VIAL SQ SCH (21:00)
[2019-05-17] MEDS: DIPHENHYDRAMINE HCL INJ 50 MG/ML VIAL IV PRN (22:00)
[2019-05-18] VITALS (18 sets, daily range): BP systolic 82–113; BP diastolic 42–79
--- NOTE | 2019-05-18 00:16 | Consultation ---
DATE OF CONSULTATION: 05/17/2019 Pulmonary Critical Care Medicine Consult REASON FOR REFERRAL: Multiorgan dysfunction. HISTORY OF PRESENT ILLNESS: Mr. Roberto is a pleasant 68-year-old gentleman with multiorgan dysfunction involving. The patient presented to [facility] on May 05, 2019. The patient had nausea, vomiting, and diaphoresis and he was found to be in clinical DKA. Initial glucose was 582. Creatinine is 1.7. The anion gap was 18. The patient with no other electrolyte abnormality. The patient had some response on initial therapy. He was also found to have hemoglobin A1c of 12.9%. Combined diastolic and systolic heart failure with LVEF 20% to 25% noted. The patient at some point had fluids off due to family request. It was noted that the patient's creatinine after initial stabilization has started to worsen and on May 16, 2019, the patient's creatinine was at 4.63. He was started on dialysis after placement of Trialysis catheter on May 15, 2019. The patient over the last couple days has been having worsening mentation. The patient had an MRI on May 15, which was negative. Obtunded and required sternal rubbing to make him awake yesterday. The patient remained on medical floor and expect transfer to the ICU as they could not perform dialysis due to low blood pressure. PAST MEDICAL HISTORY: Hypertension, diabetes, diabetic neuropathy. MEDICATIONS: Medication list reviewed per the chart record. ALLERGIES: NO KNOWN DRUG ALLERGIES. SOCIAL HISTORY: No alcohol. No drugs. He smoked from age 21 to 43, one pack per day. 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 He lives in . The patient goes fishing every few months. FAMILY HISTORY: Noncontributory. REVIEW OF SYSTEMS: Cannot get reliably. He is altered. OBJECTIVE: VITAL SIGNS: Currently afebrile, vital signs noted, reviewed per the chart record. Blood pressure in 80s. GENERAL: He tries his best to respond, mumble and speaks short phrases at times. Has difficulty expressing himself. He is weak and has difficulty following commands, but he will follow simple commands upon re-prompting. HEENT: Normocephalic, atraumatic. NECK: Supple. Throat midline. LUNGS: Bilateral air entry, decreased breath sounds bilaterally. CARDIOVASCULAR: S1, S2. No murmurs, rubs, gallops. ABDOMEN: Soft, nontender. EXTREMITIES: No clubbing. No cyanosis. There is 2+ edema in legs. INTEGUMENT: No rash. No purpura. LABORATORY DATA: Recent labs include 134 sodium, 4.0 potassium, 18 bicarbonate, 69 BUN, 4.3 creatinine. 144 glucose. Lactic acid 12.8, normal. Ammonia level was 63 yesterday. Previous imaging includes brain MRI on May 14, 2019, demonstrates subtle focal encephalomalacia in the right temporal pole, right orbitofrontal region, left lateral temporal lobe, likely from remote trauma. Renal ultrasound on May 11, 2019, with normal sonographic evaluation of the kidneys. Abdominal x-ray on May 05, 2019, with hepatomegaly, multiple hypoechoic nodules throughout the liver, which may represent regenerative nodules in the abdomen with no malignancy. A 3 mm echogenic lesion in the gallbladder body without with some partially decompressed gallbladder suggesting this could be a stone or small polyp. INR was 1.6 today. IMPRESSION AND PLAN: 1. Hypotension, multifactorial, but may include vasodilatory contributions/distributive components and even possible cardiogenic or cannot rule out obstructive component. 2. Jaundice, possible liver disease. 3. Coagulopathy, not otherwise specified, under evaluation. 4. Metabolic encephalopathy, likely as per preliminary neurologic assessment. 5. Abnormal ultrasound with multiple hypoechogenic lesions, not otherwise specified. 6. Mild anemia. 7. Acute kidney failure. 8. Hypertension. 9. Diabetes, uncontrolled. 10. Diabetic neuropathy. 11. Mild leukocytosis. 12. Evolving thrombocytopenia, platelets 105. At this time, we want to check ultrasound leg to rule out DVT given his prolonged hospitalization and leg edema and ensure this is not contributing to hypotension. Check liver function tests to evaluate the extent of liver distress or damage. Consider repeating liver ultrasonography or liver imaging with CAT scan or MRI. Give vitamins. Support the patient with dialysis needs, which may include pressors or aggressive resuscitation if needed with dialysis. Follow up closely. Thank you very much, Dr. Wood for allowing me a chance to participate in the care of Mr. Roberto. Do not hesitate to contact me if I can help in any way. Greater than 30 minutes in direct care and coordination today, multiple evaluations over the day and as the patient on medical floor and then transferred to ICU. Bharat M MD GERRY Bello/JOSÉ /[id number]
[2019-05-18] MEDS: NOREPINEPHRINE 8 MG/D5W 250 ML 250 ML IV PRN (05:00)
[2019-05-18 06:04] LABS: ANION GAP 19.9 mmol/L (8-16); CREATININE, SERUM 5.14 mg/dL (0.72-1.25); POTASSIUM 3.9 mmol/L (3.5-5.1)
--- NOTE | 2019-05-18 06:20 | NUR ---
IM- progress note O/N: no events ROS: no cp/sob/dizziness/vision changes/skin rash/leg pain/back pain v/s revd PE tired appearing anicteric ns1s2 mod bs soft nt nd 1+ leg edema B/L skin dry n. affect a&ox3 lab/meds revd A/P: 68yoM DKA JAYDA HTN HLD DM-neuropathy CHF type? Peripheral edema PLAN IVF Insulin hba1c/lipids/osmoles Echo SCD Dispo: f/u labs; keep NPO. 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 SNF eval pending; 05/10 KUB negative; check renal fn; Further assessment by cardio shows LVEF 30%; no lifevest indicated; SNF pending; 05/11 check labs; titrate lantus to 7 units; ambulate pt. Confused; Low mood; check ammonia and check PHQ9 and P4 now; likely needs antidepressants; Rising BUN and JAYDA - consult nephrology 05/12 renal U/S normal; check BMP. Has bed at SNF- hold. Renal fn worsening; 05/13 check renal fn; CT brain negative; check MRI; Uremic Encephalopathy. 05/14 f/u labs- renal fn worse;reduce gabapentin. 05/15 bicarbs worse; GFR worse; change fluids to 1/2NS with bicarbs; d/w renal. MRI brain negative; 05/16 HD plans for 3 days; f/u labs; Stated HD yesterday. Confused; sternal rub overnight to awake; 05/17 labs pending; d/w ; move to ICU. 05/18 hyperbilirubinemia; ammonia levels; Hepatorenal syndrome; pressors for renal perfusion. SEptic shock- pressors; will aid in dialysis. cct>35mins Edmund Wood MD, PhD.
[2019-05-18 06:36] LABS: ALBUMIN 1.4 g/dL (3.5-5.0)
[2019-05-18 06:42] LABS: BILIRUBIN,DIRECT 11.2 mg/dL (0.0-0.5)
[2019-05-18] MEDS: INSULIN REGULAR, HUMAN 100 UNIT/1 ML 3ML VIAL SQ SCH ×4 (07:30→21:49)
[2019-05-18] MEDS: MIDODRINE HCL 5 MG TABLET PO SCH ×3 (08:00→17:00)
[2019-05-18] MEDS: FOLIC ACID/CYANOCOB/PYRIDOXINE TAB PO SCH (09:00)
[2019-05-18] MEDS: FERROUS SULFATE 325 MG TAB PO SCH ×2 (09:00→17:00)
[2019-05-18] MEDS: CLOPIDOGREL BISULFATE 75 MG TAB PO SCH (09:00)
[2019-05-18] MEDS: LACTULOSE SYRUP 20 GM/30 ML UDC PO SCH ×2 (09:00→17:00)
[2019-05-18] MEDS: FAMOTIDINE 20 MG TAB PO SCH (09:00)
[2019-05-18] MEDS: BALSAM PERU/CASTOR OIL 60 GM OINT...G. TP SCH (09:00)
--- NOTE | 2019-05-18 09:01 | NUR ---
Pt now placed on PT hold d/t transferring from MS2 to ICU yesterday for higher level of care. Pt will need new PT orders when appropriate to resume skilled PT. Thank you. Addendum: 05/18/19 at 902 by SISSY TABARES PTA Amended: Links added.
--- NOTE | 2019-05-18 13:12 | NUR ---
WOUNDCARE CONSULT 68 YO MALE ADMITTED FOR HYPEROSMOLAR NON-KETOTIC STATE RECENTLY MOVED TO ICU PT WAS LAST SEEN BY WOUNDCARE 05-13-19 FOR SACRAL PARTIAL THICKNESS WOUND ,HEALING AREA TO LFT KNEE UPON REASSESSMENT AREAS CONTINUE TO SHOW HEALING PROGRESS SOME SMALL AMOUNTS OF REDNESS NOTED TO ABDOMINAL FOLD R/T RECENT SWELLING TO ABDOMINAL AREA NURSE AT BED SIDE AND IS AWARE I RECOMMENDED KEEPING AREA CLEAN AND DRY AND PLACING SMOOTH LINEN IN BETWEEN TO AVOID IRRITATING CONTACT AND TO MAINTAIN DRYNESS ALSO TO RECONSULT WOUNDCARE NEEDED FOR ANY CHANGES IN WOUND STATUS .WOUNDCARE TO FOLLOW UP WITH PT STATUS TUESDAY IF PT IS NOT DISCHARGED BEFORE THEN Addendum: 05/18/19 at 1325 by Hang Knott RN Amended: Links added.
[2019-05-18] MEDS: CEFEPIME 1GM/NS 0.9% 50 ML 50 ML IV SCH (14:00)
--- NOTE | 2019-05-18 16:49 | NUR ---
Nutrition Follow-up Note RD Recommendation(s) for Physician: The patient meets criteria for MODERATE protein-calorie malnutrition. -Rec adding renal to current ADA diet as medically appropriate -Rec adding Nepro TID to increase protein-calorie intake -Assist with feeding as needed -Consult for EN if pt is hemodynamically stable Plan of Care: RD following, monitoring for tolerance and adequacy, ONS rec Nutrition reason for involvement: Follow up RD Assessment (05/18) Pt was discussed during rounds. Pt was transferred to ICU due to worsening medical status. Pt now requiring Levophed for low BP. Pt was started on HD on 05/15. Mental status has changed since last visit. Per RN Marilyn, pt was eating only 25% of breakfast with feeding assistance. No other GI complains reported. Reviewed % meal consumed on [employer], his PO intake has declined for the last 10 days. No ONS order in place. Communicated ONS rec with RN. If PO continued to decline, please consult for EN or PN. Will continue to monitor and follow. (05/12) Chart reviewed. Labs and meds reviewed. 68 y/o M admitted with hyperosmolar hyperglycemic state. Visited patient in room. Pt reported feeling ok, fair appetite and intake. PTC showed ~25% of meal consumed. Patient noted not really interested in eating hospital food. Reportedly not following any special diet at home, noted eating fried foods on a regular basis. Patient reported some intermittent nausea, has not recently vomited. Reports mostly stable weight with a UBW of 200lbs. Denied any D/C or any difficulties with chewing/swallowing. Per pt dietary interview, has received some diet education in the past ~ 5 years ago, unable to recall previous nutrition related recommendations. RD provided with verbal nutrition education and handouts. Principal Problems/Diagnoses: hyperbilirubinemia, hepatorenal syndrome, septic shock PMH: Hypertension, diabetes, and diabetic neuropathy, CHF, possible CKD I/O: (05/17) +30mL/ -50mL GI: abdomen soft, non-tender, large, +BM Skin: sacral partial thickness wound Labs: (05/18) BUN 88 H, Creatinine 5.14 H, Glucose 237 H, Ca 8.0 L Meds: Nephro-song, pepcid, lactulose, plavix, feosol, norepinephrine Ht: 70in Wt: 272lbs BMI: 39.02 kg/m2 IBW:166lbs +/- 10% Malnutrition Evaluation (05/18) The patient meets criteria for MODERATE protein-calorie malnutrition. Energy intake: <75% of estimated energy requirements for >7 days Weight loss: 1-2% in 1 week (Acute), probably masked by fluids retention Fat loss: no loss identified Muscle loss: no loss identified Supporting Evidence: Fluid accumulation: unable to evaluate Functional Status: unable to evaluate Nutrition Prescription (Diet Order): ADA 1800 Estimated Nutritional Needs (With HD): Calories: 2728 - (-) Weight used : Protein: 149 186g(1.2-1.5g/kg/d) Weight used: Diet Adequacy: Not meeting calorie needs, Not meeting protein needs Tolerance: Tolerating PO Diet Education Needs Assessment: (05/12) Diet education indicated, educated patient on diabetic heart healthy diet. Learner(s): pt Barriers: none Cultural/Language Modifications: none Readiness: acceptance Method: verbal and handouts Topics: diabetic diet, carbohydrate rich foods, plate method, protein rich foods ,monitoring dietary sodium Understanding/Compliance: showed understanding , will require reinforcement Nutrition Care Level: mod (decreased appetite, ICU status, on pressors, AMS) Nutrition Diagnosis: Inadequate oral intake related to current medical status as evidenced by decreased PO intake with 0-25% meal intake. Goal: Patient will meet 75-100% of estimated needs by follow up Progress: N/A Interventions: Modified diet, Commercial beverage Monitoring/Evaluation: Total energy intake, Total protein intake, Modified diet, Liquid supplement, Weight change Signed: Yamileth Bach MS, RD, LD
--- NOTE | 2019-05-18 16:59 | Consultation ---
DATE OF CONSULTATION: 05/17/2019 Neurology Consult Note. HISTORY OF PRESENT ILLNESS: Mr. Roberto is a 68-year-old man admitted to [facility] on May 05, 2019, for possible CHF exacerbation. The patient is encephalopathic and unable to provide any medical history. History is obtained from review of the electronic medical records. Mr. Roberto was directed to the emergency center at [facility] on May 04, 2019, from Dr. Edmund Wood' office for possible CHF exacerbation. Upon arrival in the emergency center, the patient endorsed abdominal pain, nausea, vomiting, and lower extremity swelling. Documentation of the patient's neurological examination demonstrated the patient to be alert and oriented x3 without focal neurological deficits. Routine blood and urine studies performed in the emergency center were significant for an elevated BUN and creatinine, suspicious for either acute kidney injury versus chronic kidney disease with multiple electrolyte abnormalities. Mr. Ramans serum glucose was 582 in the emergency center. Additionally, the patient's white blood cell count was mildly elevated as well. Mr. Roberto was admitted to [facility] for further evaluation and treatment of adult hyperosmolar hyperglycemic syndrome, subacute hepatitis, nausea, vomiting, and dehydration. Over the past 7 to 10 days, the patient has experienced a progressively worsening encephalopathy; the etiology of which is unclear. During this time, the patient has been noted to have progressively worsening renal function, with his creatinine increasing from 1.34 on May 08, 2019, to 4.29 on May 17, 2019. Mr. Roberto is status post 2 sessions of hemodialysis with no significant volume removed during either session. Of note, following the 1st session of hemodialysis, the patient's creatinine did increase by a few tenths of a point. It is important to note there was no change in Mr. Roberto's mental status following the 2 sessions of hemodialysis. A urinalysis collected on May 11, 2019, revealed findings compatible with renal failure as well as a possible urinary tract infection with many bacteria and few epithelial cells. Today, 05/17/2019, the patient has received doses of vancomycin and cefepime. Over the past several days, the patient's white blood cell count has increased from 9 to 10 on May 11, 2019, to greater than 15 on May 17, 2019, For the past 48 hours, the patient has become hypotensive, transferred to the intensive care unit is pending. During the past 7 to 10 days, the patient has undergone multiple neuro-imaging studies, the most recent being an MRI of the brain without contrast on May 14, 2019. Other than an area of encephalomalacia suspicious for a prior traumatic injury. There were no significant findings on the MRI of the brain without contrast. More specifically, there were no findings which would account for the patient's progressively worsening encephalopathy. REVIEW OF SYSTEMS: Unable to obtain secondary to the patient being encephalopathic. PAST MEDICAL HISTORY: Hypertension, hyperlipidemia, diabetes mellitus complicated by peripheral neuropathy, congestive heart failure. PAST SURGICAL HISTORY: Bilateral cataracts removal. PAST HOSPITALIZATIONS: Surgeries/procedures as listed. Otherwise, none recorded. FAMILY MEDICAL HISTORY: None documented. SOCIAL HISTORY: Mr. Roberto is . He is retired. There is no reported current or prior tobacco, alcohol, or recreational drug use. HOME MEDICATIONS: Reviewed. Please see the list of home medications available in the electronic medical record. HOSPITAL MEDICATIONS: Reviewed. Please see the list of hospital medications available in the electronic medical record. ALLERGIES: NO KNOWN DRUG ALLERGIES. NO KNOWN FOOD ALLERGIES. NO KNOWN ALLERGIES TO LATEX. NO KNOWN ALLERGIES TO IODINE OR OTHER CONTRAST MATERIALS. PHYSICAL EXAMINATION: VITAL SIGNS: Height 70 inches, weight 272 pounds, BMI 39.1 kg/m2, blood pressure 90/55 mmHg, pulse 77 beats per minute, respiratory rate 20 breaths per minute, and oxygen saturation 93% on 2.5 L by nasal cannula. GENERAL: The patient is drowsy, opens his eyes briefly to verbal stimulation. Morbidly obese. HEENT: Normocephalic, atraumatic. Pupils are surgical. Moist mucous membranes. NECK: Supple. No appreciable thyromegaly. No appreciable carotid bruits. CARDIOVASCULAR: S1, S2. Regular rate and rhythm. No murmurs, rubs, or gallops. RESPIRATORY: Clear to auscultation bilaterally. No wheezes, rhonchi, or rales. EXTREMITIES: The skin is warm and dry. No clubbing or cyanosis. Positive for 2+ pretibial pitting edema. The posterior tibial and dorsalis pedis pulses are 1+ and symmetric. SKIN: There is a covered wound over the left foreleg. NEUROLOGIC: Memory/Attention: The patient is drowsy. He briefly opens his eyes to repeated verbal stimulation. Mr. Roberto does not verbalize during the encounter. He does not follow commands during the encounter. Cranial Nerves: Cranial nerve I-not tested. Cranial nerve II, III, IV, and -pupils are surgical. Extraocular movements cannot be adequately assessed. No appreciable nystagmus. Cranial nerve V- sensation to light touch is grossly intact in the bilateral V1 through V3 distributions. Cranial nerve VII-the face is symmetric as are all facial movements. Cranial nerve VIII-hearing is intact to voice bilaterally. Cranial nerve IX, X-the soft palate elevates equally and symmetrically. Cranial nerve XII-the tongue protrudes midline and moves symmetrically from [id number]. Strength: Bulk is normal. Unfortunately, due to the patient's encephalopathy, a formal assessment of strength is not possible. Mr. Roberto does withdraw all four extremities to peripheral noxious stimulation. Tone is normal in both arms and both legs. DTRs: Deep tendon reflexes are trace and symmetric at the triceps and biceps. Deep tendon reflexes are absent and symmetric at the brachioradialis, patellas, and Achilles. Plantar responses are flexor bilaterally. Sensation: Sensation is as per motor exam. Cerebellar: Unable to assess secondary to the patient being encephalopathic. Gait: Deferred. Speech: The patient does not verbalize during the encounter. He only moans or groans. Involuntary Movements: None. Pronator Drift: As per motor exam. LABORATORY DATA: Unable to review at the time of dictation. DIAGNOSTIC STUDIES: 1. Electrocardiogram 05/04/2019: Normal sinus rhythm at 93 beats per minute. 2. Echocardiogram on 05/05/2019: Ejection fraction 20% to 25%. The remainder of the diagnostic studies are not available for review at the time of dictation. ASSESSMENT AND PLAN: Mr. Roberto is a 68-year-old man with past medical history as dictated, admitted to [facility] on May 05, 2019, with hyperosmolar hyperglycemic syndrome, subacute hepatitis, nausea, vomiting, and dehydration. Over the past 7 to 10 days, the patient has experienced progressively worsening encephalopathy, of undetermined etiology. Other than the patient being severely encephalopathic, there are no focal findings on his neurological examination. Mr. Roberto's laboratory data and other diagnostic studies have been reviewed. In my opinion, it is probable Mr. Roberto has a metabolic encephalopathy. There are no findings on his neuroimaging studies, which would cause an alteration in mental status. There has been no witnessed activity suspicious for seizure. The absence of meningismus on neurological examination makes a diagnosis of meningitis unlikely. According to hospital staff, Mr. Roberto is progressively worsening encephalopathy has correlated with his progressively rising creatinine. Therefore, uremic encephalopathy must be considered as the possible cause of the patient's encephalopathy. Of note, the patient's white blood cell count did increase significantly over the past several days. An infectious etiology may be the cause of the patient's progressive worsening encephalopathy as well. RECOMMENDATIONS: As Follows: 1. Additional blood and urine studies will be ordered to evaluate for other possible causes of encephalopathy. Those will include: A thyroid-stimulating hormone, liver function panel, ammonia, vitamin B1, vitamin B6, vitamin B12, methylmalonic acid, folate, and RPR. Blood cultures have been collected and are pending. A urinalysis has been ordered and is pending. A urine culture will be added. However, as the patient is anuric, it will be difficult to collect a specimen for these last two studies. 2. Avoid sedative/hypnotic and pain medications as these will alter the patient's sensorium. 3. Utilize environmental cues to limit delirium. 4. Defer treatment of the remaining medical comorbidities to the primary and other services following the patient. Thank you for this consultation. I will continue to follow the patient while he remains in the hospital. TIME SPENT: 70 minutes. Tammy Otero MD CP/JOSÉ /[id number] DANIELA
--- NOTE | 2019-05-18 18:52 | NUR ---
Consult for Dr. Cheng Nicole called to his service and I spoke to Ivett to give information.
[2019-05-18] MEDS: INSULIN GLARGINE 100 UNITS/ML VIAL SQ SCH (21:00)
[2019-05-19] VITALS (25 sets, daily range): BP systolic 89–131; BP diastolic 47–78
--- NOTE | 2019-05-19 00:11 | NUR ---
Pulmonary Critical Care Medicine DATE OF ENCOUNTER: 05/18/19 SUBJECTIVE: Levophed initiated last night, now at 10 mcg/min LFTs confirmed to be quite elevated CXR with low lung volumes, right effusion patient with stable mentation, mumbles, says short phrases, lethargic REVIEW OF SYSTEMS: Cannot get reliably. He is altered. OBJECTIVE: VITAL SIGNS: vital signs noted, reviewed per the chart GENERAL: weak, has difficulty following commands HEENT: Normocephalic, atraumatic. NECK: Supple. Throat midline. LUNGS: Bilateral air entry, decreased breath sounds bilaterally. CARDIOVASCULAR: S1, S2. No murmurs, rubs, gallops. ABDOMEN: Soft, nontender. EXTREMITIES: No clubbing. No cyanosis. 2+ edema INTEGUMENT: No rash. No purpura. LABORATORY DATA: k 3.9, cr 5.14, bun 68. wbc 15. hct 33. lpt 105. alb 1.4, alk phos 1262. ast 216. alt 64. tb 15.4 IMPRESSION AND PLAN: 1. Shock, multifactorial. Predominantly vasodilatory due to possible sepsis + liver disease. cardiogenic or cannot rule out obstructive component. 2. Acute/chronic liver failure. 3. Coagulopathy, liver disease +/- other 4. Toxic/Metabolic encephalopathy, likely 5. Abnormal liver ultrasound with multiple hypoechogenic lesions, not otherwise specified. 6. Mild anemia. 7. Acute kidney failure. 8. Hypertension. 9. Diabetes, uncontrolled. 10. Diabetic neuropathy. 11. Mild leukocytosis. 12. Evolving thrombocytopenia 13. mild fluid overload No DVT on preliminary US legs - follow to final Wean pressors as feasible Serial assessment of fluid status. Negative fluid balance if tolerated GI consult for liver disease MRI liver (no contrast) vs CT liver & chest if MRI not feasible Vitamins/nutrition maximize as safe. Support the patient with dialysis needs, which may include pressors or aggressive resuscitation if needed with dialysis. Serial neuro checks Thank you very much, Dr. Wood for allowing me a chance to participate in the care of Mr. Roberto. Do not hesitate to contact me if I can help in any way.
[2019-05-19] MEDS ORDERED: ONDANSETRON HCL INJ 2MG/ML 2ML 2 MG/ML VIAL IV PRN (01:30)
[2019-05-19 05:08] LABS: BASOPHILS % 0.1 % (0.0-1.0); EOSINOPHILS # (AUTO) 0.1 (0.0-0.4); EOSINOPHILS % 0.4 % (0.0-6.0); HEMATOCRIT 35.7 % (38.2-49.6); HEMOGLOBIN 12.4 g/dL (14.0-18.0); LYMPHOCYTES # (AUTO) 1.2 (1.0-3.2); LYMPHOCYTES % 6.6 % (18.0-39.1); MEAN CORPUSCULAR HEMOGLOBIN 25.9 pg (28-32); MEAN CORPUSCULAR HGB CONC 34.7 g/dL (31-35); MEAN CORPUSCULAR VOLUME 74.5 fL (81-99); MONOCYTES # (AUTO) 2.2 (0.2-0.8); MONOCYTES % 12.5 % (4.4-11.3); NEUTROPHILS # (AUTO) 14.3 (2.1-6.9); NEUTROPHILS % 79.8 % (38.7-80.0); PLATELET COUNT 118 x10e3/uL (140-360); RED BLOOD COUNT 4.79 x10e6/uL (4.3-5.7); RED CELL DISTRIBUTION WIDTH 19.1 % (11.7-14.4)
[2019-05-19 05:18] LABS: INR 2.22; PROTHROMBIN TIME 25.3 seconds (11.9-14.5)
[2019-05-19 05:19] LABS: PARTIAL THROMBOPLASTIN TIME 47.5 seconds (23.8-35.5)
[2019-05-19 05:33] LABS: ALBUMIN 1.4 g/dL (3.5-5.0); ALBUMIN/GLOBULIN RATIO 0.5 (0.8-2.0); ANION GAP 14.3 mmol/L (8-16); CREATININE, SERUM 4.41 mg/dL (0.72-1.25); POTASSIUM 4.3 mmol/L (3.5-5.1)
--- NOTE | 2019-05-19 06:08 | Diagnostic Imaging Report ---
Examination: Single AP view of the chest. COMPARISON: CT chest 05/19/2019 INDICATION: AMS, CHF IMPRESSION: 1. Lines and Tubes: Right IJ catheter is stable. 2. Please see report of CT chest performed less than one hour ago for further detail. Signed by: Dr. Jm Gaviria M.D. on 05/19/2019 6:05 AM
--- NOTE | 2019-05-19 06:25 | Diagnostic Imaging Report ---
EXAMINATION: CT scan of the chest without contrast. TECHNIQUE: Spiral CT images of the chest were performed from the lung apices to the level of the adrenal glands. No intravenous contrast was administered due to decreased GFR Coronal and sagittal reformatted images were obtained. COMPARISON: Portable chest 05/17/2019 CLINICAL HISTORY:Abnormal liver enzymes, AMS, hyperosmolar nonketotic coma DISCUSSION: ABSENCE OF INTRAVENOUS CONTRAST DECREASES SENSITIVITY FOR DETECTION OF FOCAL LESIONS AND VASCULAR PATHOLOGY. LINES/TUBES: Right IJ dialysis catheter with tip in the mid to distal SVC. LUNGS AND AIRWAYS: Multiple linear opacities in the right upper lobe (predominantly against the minor fissure), right middle lobe, right lower lobe, lingula and to a lesser degree left lower lobe, consistent with subsegmental atelectasis. Compressive atelectasis of the right lower lobe. Multiple bilateral 3-5 mm pulmonary nodules (for example, series 304, images 49, 58, 65, 68, 75). 8 mm pulmonary nodule in the anterior left upper lobe (series 304, image 90). The airways are clear, without endobronchial lesions. PLEURA: No pneumothorax or pleural effusions. HEART AND MEDIASTINUM: 1.0 cm right and 1.1 cm left hypodense thyroid nodules (series 5, image 7). Heart size is normal. No pericardial effusion. Atherosclerotic calcification of the coronary arteries, aortic valve, thoracic aorta. Aorta is not aneurysmal. Main pulmonary artery is enlarged, measuring 3.8 cm. LYMPH NODES: There is no mediastinal, hilar or axillary lymphadenopathy. Calcified right lower paratracheal lymph nodes ABDOMEN: Please see CT abdomen and pelvis performed same day for further detail. BONES AND SOFT TISSUES: No aggressive lytic lesions. Multilevel degenerative disc changes in the thoracic spine. Soft tissues are grossly unremarkable. IMPRESSION: 1. Multiple linear opacities consistent with subsegmental atelectasis in both lungs. 2. Small right pleural effusion with compressive atelectasis of the right lower lobe. 3. Multiple bilateral pulmonary nodules, which are nonspecific. These may represent metastatic disease if there is prior history of neoplasm, versus noncalcified granulomas. 4. Enlarged main pulmonary artery, suggesting pulmonary hypertension. Signed by: Dr. Jm Gaviria M.D. on 05/19/2019 6:22 AM
--- NOTE | 2019-05-19 06:50 | Diagnostic Imaging Report ---
EXAMINATION: CT of the abdomen and pelvis without contrast. TECHNIQUE: Spiral CT images of the abdomen and pelvis were performed from the lung bases to the lesser trochanters. No intravenous contrast was given due to decreased GFR. Coronal and sagittal reformatted images were obtained. COMPARISON: None. CLINICAL HISTORY:AMS, elevated LFTs, hyperosmolar nonketotic coma DISCUSSION: ABSENCE OF INTRAVENOUS CONTRAST DECREASES SENSITIVITY FOR DETECTION OF FOCAL LESIONS AND VASCULAR PATHOLOGY. ABDOMEN/PELVIS: Exam is limited by streak artifact predominantly over the upper and lower abdomen as patient is unable to raise arms. LOWER THORAX: Please see CT chest performed same date for further details HEPATOBILIARY: Liver size is increased, measuring 18 cm in the right midclavicular line. Normal contour. Difficult to assess for focal hepatic lesions in the right lobe due to streak artifact. No intra or extrahepatic biliary ductal dilation. GALLBLADDER: High density material noted in the gallbladder lumen. Mild wall thickening, however, the gallbladder is contracted SPLEEN: No splenomegaly. PANCREAS: No focal masses or ductal dilatation. ADRENALS: No adrenal nodules. KIDNEYS/URETERS: No hydronephrosis, stones, or solid mass lesions. PELVIC ORGANS/BLADDER: Bladder is decompressed and there is a Wild catheter in place. Prostate is unremarkable. PERITONEUM/RETROPERITONEUM: Small perihepatic and perisplenic ascites. Moderate amount of free fluid in the pelvis. LYMPH NODES: No intra-abdominal,retroperitoneal, pelvic or inguinal lymphadenopathy. VESSELS: Atherosclerotic calcification of the abdominal aorta and iliac vessels. GI TRACT: No bowel dilation or evidence of obstruction. BONES AND SOFT TISSUES: No aggressive lytic lesions. Moderate asymmetry/swelling of the lateral abdominal wall musculature, involving the internal and external oblique and transverse abdominis muscles (for example series 2, images 52-73), with associated [id number] soft tissue edema. IMPRESSION: 1. Limited exam, as detailed above. 2. Hepatomegaly. No definite CT evidence of cirrhosis. Difficult to assess for focal hepatic lesions or other hepatic abnormality given the marked streak artifact. 3. Small perihepatic and perisplenic ascites and moderate amount of free fluid in the pelvis. 4. High density material noted in the gallbladder lumen. This may reflect vicarious excretion of contrast, and less likely innumerable gallstones 5. Moderate asymmetry/swelling of the lateral abdominal wall musculature. Difficult to assess for a hematoma given the prominent streak artifact. Correlate for trauma at this location. Associated mild to moderate subcutaneous soft tissue edema. Signed by: Dr. Jm Gaviria M.D. on 05/19/2019 6:47 AM
[2019-05-19] MEDS: INSULIN REGULAR, HUMAN 100 UNIT/1 ML 3ML VIAL SQ SCH ×4 (07:30→21:00)
[2019-05-19 08:36] LABS: LYMPHOCYTES % (MANUAL) 3 % (19-48); MONOCYTES % (MANUAL) 9 % (3.4-9.0); NEUTROPHILS % (MANUAL) 88 % (40-74); PLATELET ESTIMATE SLIGHTLY DECREASED; PLATELET MORPHOLOGY COMMENT NORMAL; RBC MORPHOLOGY COMMENT NORMAL
[2019-05-19] MEDS: FAMOTIDINE 20 MG TAB PO SCH (09:00)
[2019-05-19] MEDS: FOLIC ACID/CYANOCOB/PYRIDOXINE TAB PO SCH (09:00)
[2019-05-19] MEDS: CLOPIDOGREL BISULFATE 75 MG TAB PO SCH (09:00)
[2019-05-19] MEDS: FERROUS SULFATE 325 MG TAB PO SCH ×2 (09:00→17:00)
[2019-05-19] MEDS: LACTULOSE SYRUP 20 GM/30 ML UDC PO SCH ×2 (09:00→17:00)
[2019-05-19] MEDS: BALSAM PERU/CASTOR OIL 60 GM OINT...G. TP SCH (11:04)
[2019-05-19] MEDS: ALBUMIN 25% 12.5GM 0.25 GM/ML BTL IV SCH ×3 (12:00→23:37)
[2019-05-19] MEDS: MIDODRINE HCL 5 MG TABLET PO SCH ×2 (12:00→17:00)
--- NOTE | 2019-05-19 12:53 | Progress Note ---
DATE: 05/19/2019 Renal Progress Note SUBJECTIVE: Followed for acute kidney injury on possibly chronic kidney disease. The patient continues to be dialysis dependent, had a dialysis session yesterday and will need a dialysis session again today. The patient continues to be aneuric. The patient has profound anasarca. The patient has a low albumin, shock liver, ATN, remains on Levophed. Also has left ventricular depressed ejection fraction and likely also some diastolic dysfunction. The patient is not overtly short of breath, however, he has generalized edema. He was placed on midodrine. He is currently not getting any albumin or subcu octreotide. OBJECTIVE: VITAL SIGNS: Have been noted. Blood pressure is 100/50, 77 heart rate, 99% O2 saturations. LUNGS: Mostly clear to auscultation bilaterally. CARDIOVASCULAR: S1, S2. No rub. ABDOMEN: Soft. Positive bowel sounds. EXTREMITIES: 2 to 3+ edema bilaterally upper and lower extremities. LABORATORY DATA: Reviewed and are as follows: Sodium is today 137, potassium 4.3, chloride 105, bicarb 22, BUN 59, and creatinine 4.4. IMPRESSION AND PLAN: 1. Acute kidney injury. We will continue to do dialysis today and likely will watch off dialysis tomorrow and likely next dialysis will be on Tuesday. We will try to take more fluid off. We will use a SLED treatment with low blood flows and longer treatment time to allow for more fluid removal gradually. Continue to monitor closely. 2. Hypotension. We will increase the midodrine to 15 mg three times a day. There may be a component of hepatorenal syndrome type 1 as well, therefore we will add IV albumin and subcu octreotide a combination of midodrine, IV albumin, and subcu octreotide has shown to improve blood pressure by reducing portal hypertension, thereby improving effective circulating volume and improving the patient's blood pressure, and that may help improve his overall perfusion state. Avoid all blood pressure lowering medications. 3. Anemia of chronic disease, stable. Continue to monitor. 4. Metabolic acidosis. We will correct with dialysis. 5. Fluid overload. We will attempt to do ultrafiltration again with dialysis today. Erik Yates MD /MODL /[id number]
--- NOTE | 2019-05-19 13:49 | Diagnostic Imaging Report ---
EXAMINATION: Abdominal ultrasound. CLINICAL INDICATION: Jaundice COMPARISON: CT abdomen and pelvis 05/19/2019 DISCUSSION: Transverse and longitudinal images of the upper abdomen were obtained. The liver is increased in size measuring 17.6 centimeters in length in the right midclavicular line and shows heterogeneous echogenicity. No focal masses are seen in the liver. There is no intrahepatic biliary dilatation. The common bile duct is normal in caliber measuring 0.4 cm. the main portal vein is normal in caliber and measures 0.9 cm with normal hepatopetal flow. The gallbladder is collapsed with internal echogenic sludge. The wall measures 0.6 cm in thickness. Sonographic Kemp sign is reported as negative. Pancreas is poorly visualized. The spleen is normal in echogenicity and size measuring 10.2 centimeters in length. The right kidney measures 10.5 centimeters in length and the left kidney measures 10 centimeters. There is normal renal cortical echogenicity and no hydronephrosis, solid mass or shadowing calculi. Abdominal aorta and IVC are poorly visualized due to body habitus. Small volume perihepatic ascites. IMPRESSION: Hepatomegaly with nonspecific heterogeneous attenuation of the liver parenchyma. No biliary dilatation in this patient with reported history of jaundice. Small volume perihepatic ascites. Gallbladder sludge. Wall thickening is likely attributable to underdistention in the absence of a positive sonographic Kemp sign. Poor visualization of midline structures secondary to body habitus. Refer to CT abdomen and pelvis without contrast 05/19/2019 for further details. Signed by: Dr. Junior Tovar M.D. on 05/19/2019 1:46 PM
[2019-05-19] MEDS: OCTREOTIDE ACETATE 0.1 MG/ML 100MCG AMP SQ SCH ×2 (14:26→22:36)
--- NOTE | 2019-05-19 15:10 | NUR ---
PULMONARY / CCM FOLLOW UP DATE OF ENCOUNTER: 05/19/19 SUBJECTIVE: Levophed at 18 mcg/min DURING HD yesterday, now at 8 mcg/min. HD yesterday with filtration only, no net balance change UOP 90 cc / day reported eats < 20% BM patient with stable mentation, mumbles, says short phrases, lethargic REVIEW OF SYSTEMS: Cannot get reliably. He is altered. OBJECTIVE: VITAL SIGNS: vital signs noted, reviewed per the chart GENERAL: weak, has difficulty following commands HEENT: Normocephalic, atraumatic. NECK: Supple. Throat midline. LUNGS: Bilateral air entry, decreased breath sounds bilaterally. CARDIOVASCULAR: S1, S2. No murmurs, rubs, gallops. ABDOMEN: Soft, nontender. EXTREMITIES: No clubbing. No cyanosis. 2+ edema INTEGUMENT: No rash. No purpura. LABORATORY DATA: bun 59, cr 4.4, cho3 22. wbc 18, hct 36. plt 118. inr 2.22. lfts elevated noted IMPRESSION AND PLAN: 1. Shock, multifactorial. Predominantly vasodilatory due to possible sepsis + liver disease. 2. Acute/chronic liver failure. 3. Coagulopathy, liver disease +/- other 4. Toxic/Metabolic encephalopathy, likely 5. Abnormal liver ultrasound with multiple hypoechogenic lesions, not otherwise specified. 6. Mild anemia. 7. Acute kidney failure. 8. Hypertension. 9. Diabetes, uncontrolled. 10. Diabetic neuropathy. 11. Mild leukocytosis. 12. Evolving thrombocytopenia 13. mild fluid overload No DVT on preliminary US legs Wean pressors as feasible Serial assessment of fluid status. Negative fluid balance if tolerated GI consult for liver disease - octreotide, tumor markers, repeat US, follow CT abd/pelv from today just now Vitamins/nutrition maximize as safe. Support the patient with dialysis needs Serial neuro checks Thank you very much, Dr. Wood for allowing me a chance to participate in the care of Mr. Roberto. Do not hesitate to contact me if I can help in any way.
[2019-05-19 19:43] LABS: BILIRUBIN,URINE LARGE (NEGATIVE); CLARITY,URINE CLEAR (CLEAR); COLOR,URINE YELLOW (YELLOW); KETONES,URINE TRACE (NEGATIVE); LEUKOCYTE ESTERASE ,URINE MODERATE (NEGATIVE); NITRITE,URINE NEGATIVE (NEGATIVE); URINE UROBILINOGEN 1 mg/dL (0.2 - 1)
[2019-05-19 19:44] LABS: PROTEIN,URINE DIPSTICK 2+ (NEGATIVE)
[2019-05-19 20:06] LABS: BACTERIA,URINE MANY /HPF; EPITHELIAL CELLS,URINE FEW /LPF; RBC,URINE 21-50 /HPF (0-5); WBC,URINE (MAN) >50 /HPF (0-5)
[2019-05-19] MEDS: INSULIN GLARGINE 100 UNITS/ML VIAL SQ SCH (21:00)
[2019-05-19 22:39] LABS: EOSINOPHIL SMEAR,URINE NONE SEEN (NONE SEEN)
[2019-05-20] VITALS (28 sets, daily range): BP systolic 78–115; BP diastolic 44–75
[2019-05-20 05:17] LABS: BASOPHILS % 0.1 % (0.0-1.0); EOSINOPHILS # (AUTO) 0.1 (0.0-0.4); EOSINOPHILS % 0.7 % (0.0-6.0); HEMATOCRIT 32.3 % (38.2-49.6); HEMOGLOBIN 11.4 g/dL (14.0-18.0); LYMPHOCYTES # (AUTO) 1.2 (1.0-3.2); LYMPHOCYTES % 7.5 % (18.0-39.1); MEAN CORPUSCULAR HEMOGLOBIN 26.3 pg (28-32); MEAN CORPUSCULAR HGB CONC 35.3 g/dL (31-35); MEAN CORPUSCULAR VOLUME 74.4 fL (81-99); MONOCYTES # (AUTO) 1.9 (0.2-0.8); MONOCYTES % 11.7 % (4.4-11.3); NEUTROPHILS # (AUTO) 12.9 (2.1-6.9); NEUTROPHILS % 79.4 % (38.7-80.0); PLATELET COUNT 107 x10e3/uL (140-360); RED BLOOD COUNT 4.34 x10e6/uL (4.3-5.7); RED CELL DISTRIBUTION WIDTH 19.2 % (11.7-14.4)
[2019-05-20] MEDS: ALBUMIN 25% 12.5GM 0.25 GM/ML BTL IV SCH ×5 (05:24→23:41)
[2019-05-20] MEDS: OCTREOTIDE ACETATE 0.1 MG/ML 100MCG AMP SQ SCH ×3 (05:24→22:26)
[2019-05-20 05:46] LABS: ALBUMIN 1.7 g/dL (3.5-5.0); ALBUMIN/GLOBULIN RATIO 0.7 (0.8-2.0); CREATININE, SERUM 4.2 mg/dL (0.72-1.25)
--- NOTE | 2019-05-20 06:51 | Diagnostic Imaging Report ---
Examination: Single AP view of the chest. COMPARISON: AP chest 05/19/2019 INDICATION: CHF IMPRESSION: 1. Lines and Tubes: Stable right IJ catheter. 2. Lungs are hypoinflated. Stable linear opacities in bilateral lower lobes and right middle lobe, consistent with subsegmental atelectasis. No consolidation. 3. Cardiomediastinal silhouette is normal. Central vascular crowding due to low lung volumes. 4. No acute bony abnormalities. Signed by: Dr. Jm Gaviria M.D. on 05/20/2019 6:47 AM
[2019-05-20 06:58] LABS: MAGNESIUM 2.2 MG/DL (1.3-2.1); PHOSPHORUS 5.5 MG/DL (2.3-4.7)
[2019-05-20] MEDS: INSULIN REGULAR, HUMAN 100 UNIT/1 ML 3ML VIAL SQ SCH ×4 (07:30→22:25)
[2019-05-20 08:00] LABS: BAND NEUTROPHILS % (MANUAL) 5 %; LYMPHOCYTES % (MANUAL) 7 % (19-48)
[2019-05-20 08:01] LABS: EOSINOPHILS % (MANUAL) 1 % (0-7); MONOCYTES % (MANUAL) 7 % (3.4-9.0); NEUTROPHILS % (MANUAL) 80 % (40-74)
[2019-05-20 08:02] LABS: PLATELET ESTIMATE SLIGHTLY DECREASED; PLATELET MORPHOLOGY COMMENT NORMAL; RBC MORPHOLOGY COMMENT NORMAL
--- NOTE | 2019-05-20 08:05 | NUR ---
IM- progress note O/N: no events ROS: no cp/sob/dizziness/vision changes/skin rash/leg pain/back pain v/s revd PE tired appearing anicteric ns1s2 mod bs soft nt nd 1+ leg edema B/L skin dry n. affect a&ox3 lab/meds revd A/P: 68yoM DKA JAYDA HTN HLD DM-neuropathy CHF type? Peripheral edema PLAN IVF Insulin hba1c/lipids/osmoles Echo SCD Dispo: f/u labs; keep NPO. 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 SNF eval pending; 05/10 KUB negative; check renal fn; Further assessment by cardio shows LVEF 30%; no lifevest indicated; SNF pending; 05/11 check labs; titrate lantus to 7 units; ambulate pt. Confused; Low mood; check ammonia and check PHQ9 and P4 now; likely needs antidepressants; Rising BUN and JAYDA - consult nephrology 05/12 renal U/S normal; check BMP. Has bed at SNF- hold. Renal fn worsening; 05/13 check renal fn; CT brain negative; check MRI; Uremic Encephalopathy. 05/14 f/u labs- renal fn worse;reduce gabapentin. 05/15 bicarbs worse; GFR worse; change fluids to 1/2NS with bicarbs; d/w renal. MRI brain negative; 05/16 HD plans for 3 days; f/u labs; Stated HD yesterday. Confused; sternal rub overnight to awake; 05/17 labs pending; d/w ; move to ICU. 05/18 hyperbilirubinemia; ammonia levels; Hepatorenal syndrome; pressors for renal perfusion. SEptic shock- pressors; will aid in dialysis. Cholestatic jaundice cct>35mins 05/19 Cholestatic jaundice- d/c cefepime after d/w ; consult ID for mgmt of antibiotics. 05/20 supportive care; Edmund Wood MD, PhD.
[2019-05-20] MEDS: CLOPIDOGREL BISULFATE 75 MG TAB PO SCH (09:19)
[2019-05-20] MEDS: MIDODRINE HCL 5 MG TABLET PO SCH ×3 (09:19→16:39)
[2019-05-20] MEDS: BALSAM PERU/CASTOR OIL 60 GM OINT...G. TP SCH (09:19)
[2019-05-20] MEDS: FAMOTIDINE 20 MG TAB PO SCH (09:31)
[2019-05-20] MEDS: FOLIC ACID/CYANOCOB/PYRIDOXINE TAB PO SCH (09:31)
[2019-05-20] MEDS: FERROUS SULFATE 325 MG TAB PO SCH ×2 (09:31→16:39)
[2019-05-20] MEDS: LACTULOSE SYRUP 20 GM/30 ML UDC PO SCH ×2 (10:20→16:39)
[2019-05-20] MEDS: MEROPENEM 500MG/ NS 50ML 50 ML IV SCH (10:20)
--- NOTE | 2019-05-20 12:24 | Consultation ---
DATE OF CONSULTATION: 05/20/2019 ID Consult REASON FOR CONSULTATION: Sepsis. Thank you, Dr. Wood, for asking me to see this patient. HISTORY OF PRESENT ILLNESS: The patient is a 68-year-old man, referred for sepsis. He is unable to give reliable history due to confusion. Therefore information was obtained from the and supplemented by chart review. The patient was admitted through the emergency department with hyperglycemic hyperosmolar nonketotic state. He was sent to the emergency department from the primary care provider's office on 05/04/2019, for possible congestive heart failure, abdominal pain, nausea, vomiting, and bilateral lower extremity swelling. The patient has had a complicated hospital course with acute kidney injury on chronic kidney disease, requiring hemodialysis, liver derangement, and encephalopathy. Multiple abdominal imaging studies have failed to show gallbladder disease or any other intraabdominal pathology. The patient is continuing to deteriorate and blood pressure has dropped, requiring pressor support. PAST MEDICAL HISTORY: Diabetes mellitus type 2, hypertension, hyperlipidemia, congestive heart failure, and chronic kidney disease. PAST SURGICAL HISTORY: None. ALLERGIES: NO KNOWN DRUG ALLERGIES. MEDICATIONS: See MAR. The patient received cefepime and vancomycin earlier. IMMUNIZATION: Pneumococcal vaccination status cannot be verified at this time. FAMILY HISTORY: Noncontributory. SOCIAL HISTORY: He quit smoking cigarettes 2 to 3 decades ago. No alcohol or recreational drug use. REVIEW OF SYSTEMS: Unable to obtain. PHYSICAL EXAMINATION: GENERAL: Acutely ill. VITAL SIGNS: T-max 97.9, pulse 79, respiratory rate 14, blood pressure 102/67 on pressors, and weight 272 pounds. HEENT: Normocephalic. There is icterus of the conjunctiva and sclera. There is no ear or nasal discharge. Moist oral mucosa. Uncooperative pharyngeal examination. NECK: Supple. The right internal jugular hemodialysis catheter site is without redness or discharge. Smooth, painless lump in the neck, which moves with swallowing. LUNGS: With decreased breath sounds bilaterally. HEART: Normal S2 and S2. Regular. ABDOMEN: Soft and nontender. EXTREMITIES: There is 2+ edema of the upper and lower limbs. SKIN: There is stage II sacral decubitus ulcer as well as stage II ulcers to anterior knees and heels. CLAIM SERVICE REPRESENTATIVE: Confused. LABORATORY AND DIAGNOSTICS: WBC 16,210, hemoglobin 11.4, platelets 107,000, neutrophils 79.4, lymphocytes 11.7, monocytes 0.7, and basophils 0.1. BUN 46, creatinine 4.2, AST 257, ALT 78, alkaline phosphatase 1017, and total bilirubin 16.5. 05/17/2019, blood culture, no growth. 05/19/2019, urine culture is pending. Chest x-ray showed hypoinflated lungs and features of bilateral lower lobe atelectasis. IMPRESSION: 1. Encephalopathy appears to be multifactorial including sepsis, liver derangement and kidney derangement. 2. Cholestatic jaundice, etiology unclear. 3. Multiple decubitus ulcers. 4. Status post hyperglycemic hyperosmolar nonketotic syndrome. 5. Systolic and diastolic congestive failure. 6. Hypertension. 7. ? Goiter. PLAN: 1. Await urine culture results and check a procalcitonin level. Also, the patient will need a HIDA scan. 2. Start meropenem 500 mg IV piggyback q.24 hours. Verify pneumococcal vaccination status. 3. Local wound care. MD KARTHIKEYAN Loredo/JOSÉ /[id number]
--- NOTE | 2019-05-20 18:48 | NUR ---
Dr. Yates notified of patients BMP results and current vitals. MD also notified that patient has not created any urine. Per MD no dialysis today. Dr. Wood notified of patients ammonia level and informed MD that patient's loose stools are causing increased skin breakdown. MD ordered rectal tube. MD also notified that patient is very lethargic and does not stay awake for eating. Bedside swallow study ordered. Dr. Wolf ordered HIDA scan for tomorrow.
[2019-05-20] MEDS: INSULIN GLARGINE 100 UNITS/ML VIAL SQ SCH (21:00)
--- NOTE | 2019-05-20 23:06 | NUR ---
PULMONARY / CCM FOLLOW UP DATE OF ENCOUNTER: 05/20/19 SUBJECTIVE: levophed 7/ 2 L/min oxygen CXR with stable fluid/ opacities BM eats minimal amounts neuro status stable, poor/mumbles ets REVIEW OF SYSTEMS: Cannot get reliably. He is altered. OBJECTIVE: VITAL SIGNS: vital signs noted, reviewed per the chart GENERAL: weak, has difficulty following commands HEENT: Normocephalic, atraumatic. NECK: Supple. Throat midline. LUNGS: Bilateral air entry, decreased breath sounds bilaterally. CARDIOVASCULAR: S1, S2. No murmurs, rubs, gallops. ABDOMEN: Soft, nontender. EXTREMITIES: No clubbing. No cyanosis. 2+ edema INTEGUMENT: No rash. No purpura. LABORATORY DATA: bun 46, cr 4.2. wbc 16, hct 32, plt 107. INR 2.22 IMPRESSION AND PLAN: 1. Shock, multifactorial. Predominantly vasodilatory due to possible sepsis + liver disease. Cannot rule out a cardiac component 2. Acute/chronic liver failure. 3. Coagulopathy, liver disease +/- other 4. Toxic/Metabolic encephalopathy, likely 5. Abnormal liver ultrasound with multiple hypoechogenic lesions, not otherwise specified. 6. Mild anemia. 7. Acute kidney failure. 8. Hypertension. 9. Diabetes, uncontrolled. 10. Diabetic neuropathy. 11. Mild leukocytosis. 12. Evolving thrombocytopenia 13. mild fluid overload 14. acute/?chronic systolic cardiomyopathy, 20-25% LVEF Wean pressors as feasible Serial assessment of fluid status. Negative fluid balance if tolerated GI consult for liver disease - octreotide, tumor markers, get HIDA scan Vitamins/nutrition maximize as safe. Support the patient with dialysis needs Serial neuro checks Thank you very much, Dr. Wood for allowing me a chance to participate in the care of Mr. Roberto. Do not hesitate to contact me if I can help in any way.
[2019-05-21] VITALS (26 sets, daily range): BP systolic 63–111; BP diastolic 48–87
[2019-05-21] MEDS: OCTREOTIDE ACETATE 0.1 MG/ML 100MCG AMP SQ SCH ×3 (05:07→22:45)
[2019-05-21 05:25] LABS: BASOPHILS % 0.1 % (0.0-1.0); EOSINOPHILS # (AUTO) 0.1 (0.0-0.4); EOSINOPHILS % 0.4 % (0.0-6.0); HEMATOCRIT 31.4 % (38.2-49.6); LYMPHOCYTES # (AUTO) 1.1 (1.0-3.2); LYMPHOCYTES % 5.7 % (18.0-39.1); MEAN CORPUSCULAR HEMOGLOBIN 26.6 pg (28-32); MEAN CORPUSCULAR VOLUME 75.8 fL (81-99); MONOCYTES # (AUTO) 1.9 (0.2-0.8); MONOCYTES % 9.8 % (4.4-11.3); NEUTROPHILS # (AUTO) 16.1 (2.1-6.9); NEUTROPHILS % 83.3 % (38.7-80.0); PLATELET COUNT 101 x10e3/uL (140-360); RED BLOOD COUNT 4.14 x10e6/uL (4.3-5.7); RED CELL DISTRIBUTION WIDTH 19.4 % (11.7-14.4)
[2019-05-21 05:38] LABS: ALBUMIN/GLOBULIN RATIO 0.9 (0.8-2.0); ANION GAP 15.6 mmol/L (8-16); CALCIUM 7.9 mg/dL (8.4-10.2); CREATININE, SERUM 5.47 mg/dL (0.72-1.25); POTASSIUM 3.6 mmol/L (3.5-5.1)
[2019-05-21 07:15] LABS: BAND NEUTROPHILS % (MANUAL) 8 %; EOSINOPHILS % (MANUAL) 1 % (0-7); LYMPHOCYTES % (MANUAL) 4 % (19-48); MONOCYTES % (MANUAL) 11 % (3.4-9.0); NEUTROPHILS % (MANUAL) 76 % (40-74)
[2019-05-21 07:16] LABS: ANISOCYTOSIS SLIGHT; POIKILOCYTOSIS MODERATE; RBC MORPHOLOGY COMMENT ABNORMAL
[2019-05-21 07:17] LABS: PLATELET ESTIMATE SLIGHTLY DECREASED; PLATELET MORPHOLOGY COMMENT NORMAL; SCHISTOCYTES RARE; TARGET CELLS MODERATE
[2019-05-21] MEDS: INSULIN REGULAR, HUMAN 100 UNIT/1 ML 3ML VIAL SQ SCH ×4 (07:30→21:00)
[2019-05-21] MEDS: MIDODRINE HCL 5 MG TABLET PO SCH ×3 (08:00→17:00)
--- NOTE | 2019-05-21 08:38 | NUR ---
DIALYSIS SERVICE CALLED PT TO BE DIALYZED THIS DAY PER SPOKE TO SHILO AT [facility]
[2019-05-21] MEDS: FERROUS SULFATE 325 MG TAB PO SCH ×2 (09:00→17:00)
[2019-05-21] MEDS: LACTULOSE SYRUP 20 GM/30 ML UDC PO SCH ×3 (09:00→21:55)
[2019-05-21] MEDS: FOLIC ACID/CYANOCOB/PYRIDOXINE TAB PO SCH (09:00)
[2019-05-21] MEDS: FAMOTIDINE 20 MG TAB PO SCH (09:00)
[2019-05-21] MEDS: CLOPIDOGREL BISULFATE 75 MG TAB PO SCH (09:00)
[2019-05-21] MEDS ORDERED: MORPHINE SULFATE INJ 4 MG/ML INJ 1ML IV ONE (11:00)
[2019-05-21] MEDS: MEROPENEM 500MG/ NS 50ML 50 ML IV SCH (11:30)
--- NOTE | 2019-05-21 11:46 | NUR ---
ST NOTE: Received order for BSE, attempted evaluation at 1130, pt in procedure, will return at later time today. Handoff to MARIO Moore
--- NOTE | 2019-05-21 13:18 | NUR ---
PULMONARY / CCM FOLLOW UP DATE OF ENCOUNTER: 05/21/19 SUBJECTIVE: levophed 4/ 97% saturation, 2 L/min oxygen rectal tube ~220 / shift UOP still low stable mentation REVIEW OF SYSTEMS: Cannot get reliably. He is altered. OBJECTIVE: VITAL SIGNS: vital signs noted, reviewed per the chart GENERAL: weak, has difficulty following commands HEENT: Normocephalic, atraumatic. NECK: Supple. Throat midline. LUNGS: Bilateral air entry, decreased breath sounds bilaterally. CARDIOVASCULAR: S1, S2. No murmurs, rubs, gallops. ABDOMEN: Soft, nontender. EXTREMITIES: No clubbing. No cyanosis. 2+ edema INTEGUMENT: No rash. No purpura. LABORATORY DATA: bun 66, cr 5.47. 19 wbc, hct 31, plt 101, inr 2.22 IMPRESSION AND PLAN: 1. Shock, multifactorial. Predominantly vasodilatory due to possible sepsis + liver disease. Cannot rule out a cardiac component 2. Acute/chronic liver failure. 3. Coagulopathy, liver disease +/- other 4. Toxic/Metabolic encephalopathy, likely 5. Abnormal liver ultrasound with multiple hypoechogenic lesions, not otherwise specified. 6. Mild anemia. 7. Acute kidney failure. 8. Hypertension. 9. Diabetes, uncontrolled. 10. Diabetic neuropathy. 11. Mild leukocytosis. 12. Evolving thrombocytopenia 13. mild fluid overload 14. acute/?chronic systolic cardiomyopathy, 20-25% LVEF Wean pressors as feasible Serial assessment of fluid status. Negative fluid balance if tolerated GI consult for liver disease - octreotide, tumor markers, get HIDA scan today consider dc alonzo if ok with renal Vitamins/nutrition maximize as safe. Support the patient with dialysis needs Serial neuro checks Thank you very much, Dr. Wood for allowing me a chance to participate in the care of Mr. Roberto. Do not hesitate to contact me if I can help in any way.
--- NOTE | 2019-05-21 14:00 | NUR ---
ST NOTE: Re-attempted BSE, pt given morphine for procedure and is not alert enough to participate, will return 05/22/19, handoff to MARIO Cornejo
[2019-05-21] MEDS ORDERED: LACTULOSE SYRUP 20 GM/30 ML UDC PO PRN (15:15)
--- NOTE | 2019-05-21 15:20 | NUR ---
NOTIFIED UNABLE TO GIVE PO MEDICATIONS AT THIS TIME DUE TO PT BEING SO LETHARGIC, PT DID RECEIVED MORPHINE DURING HIDA SCAN MD MADE AWARE. REQUESTED NGT FOR MED ADMINISTRATION PER MD WAIT 4 HRS AND SEE HOW HE IS THEN. WILL CONTINUE TO MONITOR CLOSELY.
[2019-05-21] MEDS: BALSAM PERU/CASTOR OIL 60 GM OINT...G. TP SCH (15:23)
--- NOTE | 2019-05-21 15:32 | Diagnostic Imaging Report ---
EXAM: HIDA Scan with Morphine Challenge INDICATION: Sepsis, cholestatic jaundice. Elevated LFTs. Report: Following the administration of 6.6 mCi of Tc-99m mebrofenin, dynamic images of the abdomen in the anterior projection were obtained through 60 minutes. Morphine sulfate 2 mg was administered intravenously and additional images were obtained through 30 minutes. Perfusion of the liver is normal. Extraction of tracer from the blood pool by the liver parenchyma is markedly prolonged. Tracer does not appear within the biliary tract until 60 minutes post injection of the radiopharmaceutical. The gallbladder does not fill during the initial 60 minutes of imaging but does fill promptly following administration of morphine. Tracer is not seen in the common bile duct, duodenum or small bowel during the study due to the minimal bilary secretion of tracer. Impression: 1. Filling of the gallbladder post administration of morphine excludes acute cystic duct obstruction/acute cholecystitis. 2. Scan evidence of severe hepatocyte dysfunction with cholestasis. Signed by: Dr. Yolie Doty M.D. on 05/21/2019 3:29 PM
[2019-05-21] MEDS: INSULIN GLARGINE 100 UNITS/ML VIAL SQ SCH (21:00)
[2019-05-22] VITALS (23 sets, daily range): BP systolic 79–136; BP diastolic 50–66
[2019-05-22] MEDS: LACTULOSE SYRUP 20 GM/30 ML UDC PO SCH ×3 (06:00→22:00)
[2019-05-22] MEDS: OCTREOTIDE ACETATE 0.1 MG/ML 100MCG AMP SQ SCH ×3 (06:41→22:31)
--- NOTE | 2019-05-22 06:55 | NUR ---
Pt sleeping soundly and no family present. Web Applications Administrator left a card describing availability of guitar repairer and instructions on how to contact a guitar repairer. CORRIE GARRETT Web Applications Administrator Spiritual Care Department O: [phone] Pager: [phone] ([phone] number calling from)
[2019-05-22] MEDS: INSULIN REGULAR, HUMAN 100 UNIT/1 ML 3ML VIAL SQ SCH ×4 (07:30→23:01)
[2019-05-22] MEDS: FERROUS SULFATE 325 MG TAB PO SCH ×2 (07:50→16:44)
[2019-05-22] MEDS: MIDODRINE HCL 5 MG TABLET PO SCH ×3 (07:50→16:44)
[2019-05-22] MEDS: FOLIC ACID/CYANOCOB/PYRIDOXINE TAB PO SCH (07:50)
[2019-05-22] MEDS: FAMOTIDINE 20 MG TAB PO SCH (07:51)
[2019-05-22] MEDS: CLOPIDOGREL BISULFATE 75 MG TAB PO SCH (07:51)
[2019-05-22] MEDS: NOREPINEPHRINE 8 MG/D5W 250 ML 250 ML IV PRN (07:53)
[2019-05-22] MEDS: BALSAM PERU/CASTOR OIL 60 GM OINT...G. TP SCH (09:00)
[2019-05-22] MEDS ORDERED: VANCOMYCIN 1GM/NS 250 ML 250 ML IV ONE (10:45)
--- NOTE | 2019-05-22 12:45 | NUR ---
PULMONARY / CCM FOLLOW UP DATE OF ENCOUNTER: 05/22/19 SUBJECTIVE: levophed 8/ 100% saturation, 2 L/min oxygen stable mentation, AMS alonzo out REVIEW OF SYSTEMS: Cannot get reliably. He is altered. OBJECTIVE: VITAL SIGNS: vital signs noted, reviewed per the chart GENERAL: weak, has difficulty following commands HEENT: Normocephalic, atraumatic. NECK: Supple. Throat midline. LUNGS: Bilateral air entry, decreased breath sounds bilaterally. CARDIOVASCULAR: S1, S2. No murmurs, rubs, gallops. ABDOMEN: Soft, nontender. EXTREMITIES: No clubbing. No cyanosis. 2+ edema INTEGUMENT: No rash. No purpura. LABORATORY DATA: no new updates IMPRESSION AND PLAN: 1. Shock, multifactorial. Predominantly vasodilatory due to possible sepsis + liver disease. Cannot rule out a cardiac component 2. Acute/chronic liver failure. 3. Coagulopathy, liver disease +/- other 4. Toxic/Metabolic encephalopathy, likely 5. Abnormal liver ultrasound with multiple hypoechogenic lesions, not otherwise specified. 6. Mild anemia. 7. Acute kidney failure. 8. Hypertension. 9. Diabetes, uncontrolled. 10. Diabetic neuropathy. 11. Mild leukocytosis. 12. Evolving thrombocytopenia 13. mild fluid overload 14. acute/?chronic systolic cardiomyopathy, 20-25% LVEF Wean pressors as feasible Serial assessment of fluid status. Negative fluid balance if tolerated GI consult for liver disease - octreotide, tumor marker -HIDA negative for acute cholecystitis reportedly dc alonzo Vitamins/nutrition maximize as safe. Support the patient with dialysis needs Serial neuro checks recheck cbc in am Thank you very much, Dr. Wood for allowing me a chance to participate in the care of Mr. Roberto. Do not hesitate to contact me if I can help in any way.
[2019-05-22] MEDS: MEROPENEM 500MG/ NS 50ML 50 ML IV SCH (14:36)
[2019-05-22] MEDS: INSULIN GLARGINE 100 UNITS/ML VIAL SQ SCH (23:02)
[2019-05-23] VITALS (32 sets, daily range): BP systolic 81–118; BP diastolic 49–69
[2019-05-23 05:07] LABS: BASOPHILS % 0.2 % (0.0-1.0); EOSINOPHILS # (AUTO) 0.1 (0.0-0.4); EOSINOPHILS % 0.6 % (0.0-6.0); HEMATOCRIT 34.3 % (38.2-49.6); HEMOGLOBIN 11.9 g/dL (14.0-18.0); LYMPHOCYTES # (AUTO) 1.2 (1.0-3.2); LYMPHOCYTES % 5.7 % (18.0-39.1); MEAN CORPUSCULAR HEMOGLOBIN 26.8 pg (28-32); MEAN CORPUSCULAR HGB CONC 34.7 g/dL (31-35); MEAN CORPUSCULAR VOLUME 77.3 fL (81-99); MONOCYTES # (AUTO) 2.1 (0.2-0.8); MONOCYTES % 10.2 % (4.4-11.3); NEUTROPHILS # (AUTO) 16.8 (2.1-6.9); NEUTROPHILS % 82.7 % (38.7-80.0); PLATELET COUNT 106 x10e3/uL (140-360); RED BLOOD COUNT 4.44 x10e6/uL (4.3-5.7); RED CELL DISTRIBUTION WIDTH 20.1 % (11.7-14.4)
[2019-05-23 05:35] LABS: ALBUMIN 1.7 g/dL (3.5-5.0); ALBUMIN/GLOBULIN RATIO 0.7 (0.8-2.0); CALCIUM 7.9 mg/dL (8.4-10.2); CREATININE, SERUM 5.26 mg/dL (0.72-1.25)
[2019-05-23] MEDS: LACTULOSE SYRUP 20 GM/30 ML UDC PO SCH ×3 (06:00→21:14)
[2019-05-23 06:50] LABS: EOSINOPHILS % (MANUAL) 1 % (0-7); LYMPHOCYTES % (MANUAL) 3 % (19-48); MONOCYTES % (MANUAL) 6 % (3.4-9.0); NEUTROPHILS % (MANUAL) 84 % (40-74)
[2019-05-23 06:52] LABS: ANISOCYTOSIS SLIGHT; MICROCYTOSIS SLIGHT; PLATELET ESTIMATE SLIGHTLY DECREASED; PLATELET MORPHOLOGY COMMENT NORMAL; POIKILOCYTOSIS SLIGHT; RBC MORPHOLOGY COMMENT NORMAL
[2019-05-23] MEDS: OCTREOTIDE ACETATE 0.1 MG/ML 100MCG AMP SQ SCH ×3 (07:01→21:14)
[2019-05-23] MEDS: INSULIN REGULAR, HUMAN 100 UNIT/1 ML 3ML VIAL SQ SCH ×4 (07:30→21:08)
--- NOTE | 2019-05-23 07:33 | Diagnostic Imaging Report ---
EXAMINATION: CHEST SINGLE (PORTABLE) INDICATION: ^chf ^[id number] ^[id number] COMPARISON: 05/20/2019 FINDINGS: AP view TUBES and LINES: Stable right IJ catheter. LUNGS: Low lung volumes. Vascular congestion, accentuated by low lung volumes. Unchanged bilateral lower lung field linear opacities, right greater than left, likely atelectasis/scarring. PLEURA: No pleural effusion or pneumothorax. HEART AND MEDIASTINUM: The cardiomediastinal silhouette is enlarged, accentuated by low lung volumes and technique. BONES AND SOFT TISSUES: No acute osseous lesion. Soft tissues are unremarkable. UPPER ABDOMEN: No free air under the diaphragm. IMPRESSION: Vascular congestion, accentuated by low lung volumes. Bilateral lower lung field linear opacities, right greater than left, unchanged, likely scarring. Underlying pneumonia cannot be excluded in the appropriate clinical context. Signed by: Dr. Ronny Coronado MD on 05/23/2019 7:30 AM
[2019-05-23] MEDS: MIDODRINE HCL 5 MG TABLET PO SCH ×3 (08:00→15:56)
[2019-05-23] MEDS: FERROUS SULFATE 325 MG TAB PO SCH ×2 (09:00→15:56)
[2019-05-23] MEDS: FOLIC ACID/CYANOCOB/PYRIDOXINE TAB PO SCH (09:00)
[2019-05-23] MEDS: FAMOTIDINE 20 MG TAB PO SCH (09:00)
[2019-05-23] MEDS: CLOPIDOGREL BISULFATE 75 MG TAB PO SCH (09:00)
[2019-05-23] MEDS ORDERED: HALOPERIDOL LACTATE 5 MG/ML VIAL IV ONE (10:45)
[2019-05-23] MEDS ORDERED: HALOPERIDOL LACTATE 5 MG/ML VIAL ONE (10:50)
--- NOTE | 2019-05-23 13:11 | NUR ---
ST NOTE: Pt having dialysis and calling out in confusion. Will return 05/24/19 to re-assess swallow function when pt more appropriate for treatment
[2019-05-23] MEDS: MEROPENEM 500MG/ NS 50ML 50 ML IV SCH (14:21)
[2019-05-23] MEDS: BALSAM PERU/CASTOR OIL 60 GM OINT...G. TP SCH (14:22)
--- NOTE | 2019-05-23 15:23 | NUR ---
Nutrition Follow-up Note RD Recommendation(s) for Physician: The patient meets criteria for MODERATE protein-calorie malnutrition. - With Levophed at 10mcg/min and decreased PO intake, consider initiating central PN (30% dextrose, 15% AA) @ 41.7mL/hr, providing 1000mL total volume/day, 150g dextrose, 75g AA. Total kcal including lipids of 25g/ daily 1035kcal/day - Rec adding renal to current ADA diet with Nepro BID as medically appropriate; texture per ENCYCLOPEDIA RESEARCH WORKER - Assist with feeding as needed Plan of Care: RD following, monitoring for tolerance and adequacy, ONS/ PN rec Nutrition reason for involvement: Follow up RD Assessment (05/23) Pt was discussed during AM rounds. Pt with altered mental status; not eating or taking meds. Pt was getting HD this morning. Levophed was running at 10mcg/min. ENCYCLOPEDIA RESEARCH WORKER was consulted. Rec to consult for PN if appropriate. Pt meets criteria for moderate malnutrition due to prolonged poor PO intake since admission. Will continue to monitor and follow. (05/18) Pt was discussed during rounds. Pt was transferred to ICU due to worsening medical status. Pt now requiring Levophed for low BP. Pt was started on HD on 05/15. Mental status has changed since last visit. Per MARIO Sanders, pt was eating only 25% of breakfast with feeding assistance. No other GI complains reported. Reviewed % meal consumed on [employer], his PO intake has declined for the last 10 days. No ONS order in place. Communicated ONS rec with RN. If PO continued to decline, please consult for EN or PN. Will continue to monitor and follow. (05/12) Chart reviewed. Labs and meds reviewed. 68 y/o M admitted with hyperosmolar hyperglycemic state. Visited patient in room. Pt reported feeling ok, fair appetite and intake. PTC showed ~25% of meal consumed. Patient noted not really interested in eating hospital food. Reportedly not following any special diet at home, noted eating fried foods on a regular basis. Patient reported some intermittent nausea, has not recently vomited. Reports mostly stable weight with a UBW of 200lbs. Denied any D/C or any difficulties with chewing/swallowing. Per pt dietary interview, has received some diet education in the past ~ 5 years ago, unable to recall previous nutrition related recommendations. RD provided with verbal nutrition education and handouts. Principal Problems/Diagnoses: hyperbilirubinemia, hepatorenal syndrome, septic shock PMH: Hypertension, diabetes, and diabetic neuropathy, CHF, possible CKD I/O: (05/23) +400mL/300mL (05/17) +30mL/ -50mL GI: abdomen soft, non-tender, large, round, +BM Skin: sacral partial thickness wound Labs: (05/23) BUN 67 H, Creatinine 5.26 H, Glucose 131 H, Ca 7.9 L, total billirubin 19.7 H, AST 424 H, ALT 172 H (05/18) BUN 88 H, Creatinine 5.14 H, Glucose 237 H, Ca 8.0 L Meds: insulin, norepinephrine Ht: 70in Wt: 272lbs; 270lb BMI: 39.02 kg/m2 IBW:166lbs +/- 10% Malnutrition Evaluation (05/18) The patient meets criteria for MODERATE protein-calorie malnutrition. Energy intake: <75% of estimated energy requirements for >7 days Weight loss: 1-2% in 1 week (Acute), probably masked by fluids retention Fat loss: no loss identified Muscle loss: no loss identified Supporting Evidence: Fluid accumulation: unable to evaluate Functional Status: unable to evaluate Nutrition Prescription (Diet Order): ADA 1800 Estimated Nutritional Needs (With HD): Calories: 3050 3660kcal (25-30kcal/kg/d) Weight used: CBW Protein: 149 186g (1.2-1.5g/kg/d) Weight used: CBW Diet Adequacy: Not meeting calorie needs, Not meeting protein needs Tolerance: Tolerating pending Diet Education Needs Assessment: (05/12) Diet education indicated, educated patient on diabetic heart healthy diet. Learner(s): pt Barriers: none Cultural/Language Modifications: none Readiness: acceptance Method: verbal and handouts Topics: diabetic diet, carbohydrate rich foods, plate method, protein rich foods ,monitoring dietary sodium Understanding/Compliance: showed understanding , will require reinforcement Nutrition Care Level: mod (decreased appetite, ICU status, on pressors, AMS) Nutrition Diagnosis: Inadequate oral intake related to current medical status as evidenced by decreased PO intake with 0-25% meal intake. Goal: Patient will meet 75-100% of estimated needs by follow up Progress: Not progressing Interventions: Modified diet, Commercial beverage, Composition, Rate, Route, IVF, Collaboration with other providers, Monitoring/Evaluation: Total energy intake, Total protein intake, Formula/Solution, IVF , Modified diet, Liquid supplement, Weight change Signed: Yamileth Bach, MS, RD, LD
[2019-05-23] MEDS: METRONIDAZOLE 500MG/NS 100ML 100 ML IV SCH ×2 (15:54→21:14)
[2019-05-23] MEDS: NOREPINEPHRINE 8 MG/D5W 250 ML 250 ML IV PRN (15:55)
[2019-05-23] MEDS: INSULIN GLARGINE 100 UNITS/ML VIAL SQ SCH (21:14)
--- NOTE | 2019-05-23 23:09 | NUR ---
PULMONARY / CCM FOLLOW UP DATE OF ENCOUNTER: 05/23/19 SUBJECTIVE: AMS stable levophed 10/hr CXR mildly decreased fluid slightly restless during HD today, s/p haldol 2 mg REVIEW OF SYSTEMS: Cannot get reliably. He is altered. OBJECTIVE: VITAL SIGNS: vital signs noted, reviewed per the chart GENERAL: weak, has difficulty following commands HEENT: Normocephalic, atraumatic. NECK: Supple. Throat midline. LUNGS: Bilateral air entry, decreased breath sounds bilaterally. CARDIOVASCULAR: S1, S2. No murmurs, rubs, gallops. ABDOMEN: Soft, nontender. EXTREMITIES: No clubbing. No cyanosis. 2+ edema INTEGUMENT: No rash. No purpura. LABORATORY DATA: no new updates IMPRESSION AND PLAN: 1. Shock, multifactorial. Predominantly vasodilatory due to possible sepsis + liver disease. Cannot rule out a cardiac component 2. Acute/chronic liver failure. 3. Coagulopathy, liver disease +/- other 4. Toxic/Metabolic encephalopathy, likely 5. Abnormal liver ultrasound with multiple hypoechogenic lesions, not otherwise specified. 6. Mild anemia. 7. Acute kidney failure. 8. Hypertension. 9. Diabetes, uncontrolled. 10. Diabetic neuropathy. 11. Mild leukocytosis. 12. Evolving thrombocytopenia 13. mild fluid overload 14. acute/?chronic systolic cardiomyopathy, 20-25% LVEF Wean pressors as feasible Serial assessment of fluid status. Negative fluid balance if tolerated GI consult for liver disease - octreotide, tumor marker -HIDA negative for acute cholecystitis Vitamins/nutrition maximize as safe. Support the patient with dialysis needs Serial neuro checks check AM cortisol, consider treatment for relative adrenal insufficiency empirically Thank you very much, Dr. Wood for allowing me a chance to participate in the care of Mr. Roberto. Do not hesitate to contact me if I can help in any way.
[2019-05-23] MEDS: DIPHENHYDRAMINE HCL INJ 50 MG/ML VIAL IV PRN (23:45)
[2019-05-24] VITALS (27 sets, daily range): BP systolic 85–138; BP diastolic 50–89
--- NOTE | 2019-05-24 06:07 | NUR ---
IM- progress note O/N: no events ROS: no cp/sob/dizziness/vision changes/skin rash/leg pain/back pain v/s revd PE tired appearing anicteric ns1s2 mod bs soft nt nd 1+ leg edema B/L skin dry n. affect a&ox3 lab/meds revd A/P: 68yoM DKA JAYDA HTN HLD DM-neuropathy CHF type? Peripheral edema PLAN IVF Insulin hba1c/lipids/osmoles Echo SCD Dispo: f/u labs; keep NPO. 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 SNF eval pending; 05/10 KUB negative; check renal fn; Further assessment by cardio shows LVEF 30%; no lifevest indicated; SNF pending; 05/11 check labs; titrate lantus to 7 units; ambulate pt. Confused; Low mood; check ammonia and check PHQ9 and P4 now; likely needs antidepressants; Rising BUN and JAYDA - consult nephrology 05/12 renal U/S normal; check BMP. Has bed at SNF- hold. Renal fn worsening; 05/13 check renal fn; CT brain negative; check MRI; Uremic Encephalopathy. 05/14 f/u labs- renal fn worse;reduce gabapentin. 05/15 bicarbs worse; GFR worse; change fluids to 1/2NS with bicarbs; d/w renal. MRI brain negative; 05/16 HD plans for 3 days; f/u labs; Stated HD yesterday. Confused; sternal rub overnight to awake; 05/17 labs pending; d/w ; move to ICU. 05/18 hyperbilirubinemia; ammonia levels; Hepatorenal syndrome; pressors for renal perfusion. SEptic shock- pressors; will aid in dialysis. Cholestatic jaundice cct>35mins 05/19 Cholestatic jaundice- d/c cefepime after d/w ; consult ID for mgmt of antibiotics. 05/20 supportive care; 05/21 insert rectal tube; f/u HIDA. 05/22 HIDA negative; cont lactulose and HD. continue supportive care. 05/23 Distributive Shock- cont supportive care; 05/24 supportive care;
[2019-05-24] MEDS: METRONIDAZOLE 500MG/NS 100ML 100 ML IV SCH ×3 (06:41→22:00)
[2019-05-24] MEDS: OCTREOTIDE ACETATE 0.1 MG/ML 100MCG AMP SQ SCH ×3 (06:41→22:00)
[2019-05-24] MEDS: NOREPINEPHRINE 8 MG/D5W 250 ML 250 ML IV PRN (07:04)
--- NOTE | 2019-05-24 07:26 | Diagnostic Imaging Report ---
EXAMINATION: CHEST SINGLE (PORTABLE) INDICATION: CHF. COMPARISON: Chest radiograph 05/23/2019. FINDINGS: TUBES and LINES: Right IJ non-tunneled hemodialysis catheter terminates in the lower SVC. LUNGS: Low lung volumes. Linear and patchy opacities in the lower lung zones, right greater than left, likely atelectasis. Central vascular congestion. No new consolidation or evidence of pulmonary edema. PLEURA: No pleural effusion or pneumothorax. HEART AND MEDIASTINUM: The cardiomediastinal silhouette is unchanged. BONES AND SOFT TISSUES: No acute osseous abnormality. UPPER ABDOMEN: No free air under the diaphragm. IMPRESSION: Vascular congestion, accentuated by low lung volumes. No evidence of pulmonary edema. Bilateral lower lung field linear and patchy opacities, more likely atelectasis than pneumonia. Signed by: Dr. Flower Fung MD on 05/24/2019 7:23 AM
[2019-05-24 07:34] LABS: BASOPHILS % 0.2 % (0.0-1.0); EOSINOPHILS # (AUTO) 0.1 (0.0-0.4); EOSINOPHILS % 0.5 % (0.0-6.0); HEMATOCRIT 34.1 % (38.2-49.6); LYMPHOCYTES # (AUTO) 1.2 (1.0-3.2); LYMPHOCYTES % 5.4 % (18.0-39.1); MEAN CORPUSCULAR HEMOGLOBIN 26.8 pg (28-32); MEAN CORPUSCULAR HGB CONC 35.2 g/dL (31-35); MEAN CORPUSCULAR VOLUME 76.3 fL (81-99); MONOCYTES % 8.8 % (4.4-11.3); NEUTROPHILS # (AUTO) 18.8 (2.1-6.9); NEUTROPHILS % 84.3 % (38.7-80.0); PLATELET COUNT 103 x10e3/uL (140-360); RED BLOOD COUNT 4.47 x10e6/uL (4.3-5.7); RED CELL DISTRIBUTION WIDTH 20.6 % (11.7-14.4)
[2019-05-24 07:44] LABS: INR 2.82; PROTHROMBIN TIME 30.4 seconds (11.9-14.5)
[2019-05-24 07:45] LABS: PARTIAL THROMBOPLASTIN TIME 53.5 seconds (23.8-35.5)
[2019-05-24 07:51] LABS: ALBUMIN 1.9 g/dL (3.5-5.0); ALBUMIN/GLOBULIN RATIO 0.8 (0.8-2.0); ANION GAP 16.8 mmol/L (8-16); CALCIUM 7.9 mg/dL (8.4-10.2); CREATININE, SERUM 4.54 mg/dL (0.72-1.25); POTASSIUM 3.8 mmol/L (3.5-5.1)
[2019-05-24 07:56] LABS: LYMPHOCYTES % (MANUAL) 6 % (19-48); MONOCYTES % (MANUAL) 9 % (3.4-9.0); NEUTROPHILS % (MANUAL) 85 % (40-74); PLATELET ESTIMATE MODERATELY DECREASED; PLATELET MORPHOLOGY COMMENT FEW LARGE
[2019-05-24 07:57] LABS: RBC MORPHOLOGY COMMENT NORMAL
[2019-05-24] MEDS: FERROUS SULFATE 325 MG TAB PO SCH ×2 (08:03→16:38)
[2019-05-24] MEDS: MIDODRINE HCL 5 MG TABLET PO SCH ×3 (08:03→16:40)
[2019-05-24] MEDS: FOLIC ACID/CYANOCOB/PYRIDOXINE TAB PO SCH (08:03)
[2019-05-24] MEDS: CLOPIDOGREL BISULFATE 75 MG TAB PO SCH (08:03)
[2019-05-24] MEDS: FAMOTIDINE 20 MG TAB PO SCH (08:03)
[2019-05-24] MEDS: INSULIN REGULAR, HUMAN 100 UNIT/1 ML 3ML VIAL SQ SCH ×4 (08:09→21:20)
[2019-05-24] MEDS: BALSAM PERU/CASTOR OIL 60 GM OINT...G. TP SCH (08:56)
[2019-05-24] MEDS: MEROPENEM 500MG/ NS 50ML 50 ML IV SCH (10:14)
--- NOTE | 2019-05-24 10:31 | NUR ---
PT REMAINS ON ICU TRYING TO WEAN LEVOPHED DRIP BUT HAS BEEN UNABLE THE PAST 24 HRS
[2019-05-24] MEDS ORDERED: COSYNTROPIN 0.25 MG/VIAL VIAL INJ SCH (11:30)
[2019-05-24] MEDS ORDERED: COSYNTROPIN 0.25 MG/VIAL VIAL INJ ONE (12:00)
[2019-05-24] MEDS ORDERED: MICAFUNGIN SODIUM 50 MG/50 ML BAG IV SCH (12:00)
[2019-05-24] MEDS ORDERED: MICAFUNGIN SODIUM 100 ML IV SCH ×2 (12:00)
[2019-05-24] MEDS: MICAFUNGIN SODIUM 100 ML IV SCH (13:45)
[2019-05-24] MEDS ORDERED: SODIUM CHLORIDE 0.9% 50ML 50 ML ONE (15:58)
[2019-05-24] MEDS ORDERED: IOPAMIDOL 370 MG/ML 200 ML INFUS..BTL INJ ONE (15:59)
--- NOTE | 2019-05-24 16:28 | Diagnostic Imaging Report ---
EXAM: CT Abdomen and Pelvis WITH and WITHOUT intravenous contrast -liver mass protocol INDICATION: Liver mass COMPARISON: CT abdomen and pelvis of 05/19/2019 TECHNIQUE: Abdomen and pelvis were scanned utilizing a multidetector helical scanner from the lung base to the pubic symphysis before after administration of IV contrast. Coronal and sagittal reformations were obtained. Liver mass protocol was performed. Scan was performed prior to contrast administration, during arterial and portal venous phase, and 5 minute delayed phase. IV CONTRAST: 100mL of Isovue 370 ORAL CONTRAST: None RADIATION DOSE: Total DLP: 2825.2 mGy*cm Dose modulation, iterative reconstruction, and/or weight based adjustment of the mA/kV was utilized to reduce the radiation dose to as low as reasonably achievable. FINDINGS: LOWER THORAX: Numerous bilateral lung base pulmonary nodules, the largest of which measures up to 8 mm in the lingula (series 5 image 3). These are better evaluated on the recent chest CT of 05/19/2019. HEPATOBILIARY: Hepatomegaly measuring up to 23 cm. Innumerable masses throughout the entire liver, none of which demonstrate arterial enhancement. No definite biliary ductal dilation. Hyperdense material within the gallbladder may represent sludge. SPLEEN: No splenomegaly. PANCREAS: 2.8 cm cystic lesion in the tail of the pancreas, possibly representing pseudocyst. ADRENALS: No adrenal nodules. KIDNEYS/URETERS: Bilateral renal cysts. No hydronephrosis or renal calculi. PELVIC ORGANS/BLADDER: Unremarkable. PERITONEUM / RETROPERITONEUM: Small volume ascites. No free air. LYMPH NODES: Enlarged gastrohepatic lymph nodes measure up to 12 mm short axis (series 3 image 142). VESSELS: Scattered atherosclerotic calcifications of the nonaneurysmal abdominal aorta and major branches. GI TRACT: Rectal tube in place. Colonic diverticulosis without CT evidence of diverticulitis. No abnormal bowel wall thickening. No bowel obstruction. BONES AND SOFT TISSUES: Diffuse soft tissue edema. No acute osseous injury. No suspicious lytic or blastic lesions. IMPRESSION: Hepatomegaly with innumerable masses throughout the entire liver, none of which demonstrate arterial enhancement. Gastrohepatic lymph nodes measure up to 12 mm short axis. In conjunction with numerous pulmonary nodules, these findings most likely represent metastatic disease. 2.8 cm cystic lesion in the tail the pancreas may represent a pseudocyst. Hyperdense material within the gallbladder may represent sludge. Signed by: Gabriel Woods MD on 05/24/2019 4:25 PM
--- NOTE | 2019-05-24 20:34 | NUR ---
PULMONARY / CCM FOLLOW UP DATE OF ENCOUNTER: 05/24/19 SUBJECTIVE: CXR with bibasilar pneumonia/atelectasis levophed 7/ AMS stable, interacts but cant hold a conversation critical abd/pelvic ct findings. REVIEW OF SYSTEMS: Cannot get reliably. He is altered. OBJECTIVE: VITAL SIGNS: vital signs noted, reviewed per the chart GENERAL: weak, has difficulty following commands HEENT: Normocephalic, atraumatic. NECK: Supple. Throat midline. LUNGS: Bilateral air entry, decreased breath sounds bilaterally. CARDIOVASCULAR: S1, S2. No murmurs, rubs, gallops. ABDOMEN: Soft, nontender. EXTREMITIES: No clubbing. No cyanosis. 2+ edema INTEGUMENT: No rash. No purpura. LABORATORY DATA: 3.8 k, cr 4.5. 22 wbc, hct 34, plt 103, inr 2.82, tb 20.3, ap 680, ast 630, alt 220 IMPRESSION AND PLAN: 1. Shock, multifactorial. Predominantly vasodilatory due to possible sepsis + liver disease. Cannot rule out a cardiac component 2. Acute/chronic liver failure. 3. Coagulopathy, liver disease +/- other 4. Toxic/Metabolic encephalopathy, likely 5. Abnormal liver ultrasound with multiple hypoechogenic lesions, not otherwise specified. 6. Mild anemia. 7. Acute kidney failure. 8. Hypertension. 9. Diabetes, uncontrolled. 10. Diabetic neuropathy. 11. Mild leukocytosis. 12. Evolving thrombocytopenia 13. mild fluid overload 14. acute/?chronic systolic cardiomyopathy, 20-25% LVEF 15. multiple masses, intrathoracic/intraabdominal non-enhancing Wean pressors as feasible Serial assessment of fluid status. Negative fluid balance if tolerated GI consult for liver disease - octreotide, tumor marker -HIDA negative for acute cholecystitis Vitamins/nutrition maximize as safe. Support the patient with dialysis needs Serial neuro checks check AM cortisol, consider treatment for relative adrenal insufficiency empirically will review CTs check coccidio, histoplasmosis, cryptococcus in interim. hiv test if not done Thank you very much, Dr. Wood for allowing me a chance to participate in the care of Mr. Roberto. Do not hesitate to contact me if I can help in any way.
[2019-05-24] MEDS: INSULIN GLARGINE 100 UNITS/ML VIAL SQ SCH (21:20)
[2019-05-25] VITALS (25 sets, daily range): BP systolic 83–130; BP diastolic 46–85
[2019-05-25 05:27] LABS: BASOPHILS % 0.1 % (0.0-1.0); EOSINOPHILS # (AUTO) 0.1 (0.0-0.4); EOSINOPHILS % 0.5 % (0.0-6.0); HEMATOCRIT 35.7 % (38.2-49.6); HEMOGLOBIN 12.5 g/dL (14.0-18.0); LYMPHOCYTES # (AUTO) 1.3 (1.0-3.2); LYMPHOCYTES % 6.2 % (18.0-39.1); MEAN CORPUSCULAR HEMOGLOBIN 26.8 pg (28-32); MEAN CORPUSCULAR VOLUME 76.4 fL (81-99); MONOCYTES % 9.5 % (4.4-11.3); NEUTROPHILS # (AUTO) 17.4 (2.1-6.9); NEUTROPHILS % 82.8 % (38.7-80.0); PLATELET COUNT 109 x10e3/uL (140-360); RED BLOOD COUNT 4.67 x10e6/uL (4.3-5.7); RED CELL DISTRIBUTION WIDTH 21.6 % (11.7-14.4)
[2019-05-25 05:53] LABS: ALBUMIN 1.8 g/dL (3.5-5.0); ALBUMIN/GLOBULIN RATIO 0.8 (0.8-2.0); ANION GAP 17.8 mmol/L (8-16); CALCIUM 7.8 mg/dL (8.4-10.2); CREATININE, SERUM 5.52 mg/dL (0.72-1.25); POTASSIUM 3.8 mmol/L (3.5-5.1)
[2019-05-25] MEDS: METRONIDAZOLE 500MG/NS 100ML 100 ML IV SCH ×3 (06:44→21:01)
[2019-05-25] MEDS: OCTREOTIDE ACETATE 0.1 MG/ML 100MCG AMP SQ SCH ×3 (06:44→21:01)
[2019-05-25] MEDS: INSULIN REGULAR, HUMAN 100 UNIT/1 ML 3ML VIAL SQ SCH ×4 (07:30→21:07)
[2019-05-25 07:33] LABS: LYMPHOCYTES % (MANUAL) 7 % (19-48); MONOCYTES % (MANUAL) 10 % (3.4-9.0); NEUTROPHILS % (MANUAL) 83 % (40-74); PLATELET ESTIMATE MODERATELY DECREASED; PLATELET MORPHOLOGY COMMENT FEW LARGE; RBC MORPHOLOGY COMMENT NORMAL
[2019-05-25 08:02] LABS: HIV 1&2 AB SCREEN NON-REACTIVE (NONREACTIVE)
[2019-05-25] MEDS: MIDODRINE HCL 5 MG TABLET PO SCH ×3 (08:26→17:00)
[2019-05-25] MEDS: BALSAM PERU/CASTOR OIL 60 GM OINT...G. TP SCH (08:27)
[2019-05-25] MEDS: CLOPIDOGREL BISULFATE 75 MG TAB PO SCH (08:27)
[2019-05-25] MEDS: FERROUS SULFATE 325 MG TAB PO SCH ×2 (08:43→16:51)
[2019-05-25] MEDS: FAMOTIDINE 20 MG TAB PO SCH (08:44)
[2019-05-25] MEDS: FOLIC ACID/CYANOCOB/PYRIDOXINE TAB PO SCH (08:44)
[2019-05-25] MEDS ORDERED: MANNITOL 25% 12.5GM/50 ML VIAL IV PRN (08:45)
[2019-05-25] MEDS ORDERED: HEPARIN SOD (PORCINE) 1000 UNIT/ML SDV IV PRN (08:45)
[2019-05-25] MEDS ORDERED: SODIUM CHLORIDE 0.9% 250ML 500 ML IV PRN (08:45)
[2019-05-25] MEDS ORDERED: ALBUMIN 25% 12.5GM 0.25 GM/ML BTL IV PRN (08:45)
[2019-05-25] MEDS ORDERED: SODIUM CHLORIDE 0.9% 1000ML 2,000 ML IV PRN (08:45)
--- NOTE | 2019-05-25 12:59 | NUR ---
WOUNDCARE CONSULT FOR 81 YO MALE HX OF DIABETES, IN WITH FEVER AND CHILLS REPORTED BY PT AND THAT HE ALSO HAS HX OF SPONTANEOUS ERUPTIONS OF CYSTLIKE RAISED AREAS ON SKIN USUALLY BACK, BUTTOCKS OR LEGS THEY BECOME PAINFUL IF IRRITATED BY FRICTION OR SHEER LABS: WBC:22.1,HGB:10.3 AND GLUCOSE :190 BLOODCULT NEG IVAN DUPLEX PENDING MEDS: VANCO,AZITHROMYCIN & CLINDAMYCIN ASSESSMENT FINDINGS: LEFT UPPER THIGH PARTIAL THICKNESS WOUND DARK BLISTERED APPERANCE WHEN FAMILY QUESTIONED ABOUT KNOWN HISTORY OF AREA STATED USE OF HEATING PAD WHICH MATCHES THE BLISTERED BURN APPERANCE OF WOUND SURFACE AREAS MEASURE 4CM X10 CM WITH CLOSED SURFACE BLISTER OTHER AREA NOTED IS TO LOWER LFT BUTTOCK CLOSED AREA THAT IS RASIED AND IS SOFT AND BOGGY TO TOUCH PT STATES IRRITATION RT FRICTION BETWEEN BUTTOCKS ALLEVYN FOAM IS PLACED RECOMENDATIONS: NURSING TO CONTINUE TO ASSIST PT TO KEEP AREAS IRRITATION CLEAN AND DRY NURSING TO ENCOURAGE PATIENT OUT OF BED FOR MEALS AND MUCH POSSIBLE NURSING TO APPLY ALLEVYN FOAM TO LFT BUTTOCK NEEDED FOR ANTI FRICTION PROTECTON AND BARRIER NURSING TO APPLY VENELEX OINTMENT TO LFT BUTTOCKS DAILY WITH ALLEVYN FOAM NURSING TO APPLY XEROFORM YESSI DAILY TO LEFT THIGH AND COVER WITH ALLEVYN FOAM Addendum: 05/25/19 at 1332 by Hang Knott RN MISTAKEN ENTRY
[2019-05-25] MEDS: MEROPENEM 500MG/ NS 50ML 50 ML IV SCH (13:10)
[2019-05-25] MEDS ORDERED: SODIUM CHLORIDE 0.9% 250ML 250 ML ONE (13:13)
[2019-05-25] MEDS: MICAFUNGIN SODIUM 100 ML IV SCH (14:10)
--- NOTE | 2019-05-25 18:13 | NUR ---
Hemodialysis done today, 2L removed. Dr. Wood ordered consult for Dr. Dow. Dr. Dow office notified of consult. Dr. Dow rounded on patient and spoke to about results of CT scan and pt's code status. Addendum: 05/25/19 at 1826 by Maria G King RN Saul- Ottonielgail (pt's son) called wanting to find a way to talk to oncologist. RN paged Dr. Dow and informed MD of patient's son wanting to talk to MD about test results. RN called pt's son back and informed him that will be rounding on his father from 8am-11am tomorrow.
--- NOTE | 2019-05-25 19:41 | NUR ---
PULMONARY / CCM FOLLOW UP DATE OF ENCOUNTER: 05/25/19 SUBJECTIVE: levophed ongoing, 20 mcg/ HD on, goal 2.5 negative liters NC oxygen, 100% saturation ate little REVIEW OF SYSTEMS: Cannot get reliably. He is altered. OBJECTIVE: VITAL SIGNS: vital signs noted, reviewed per the chart GENERAL: weak, has difficulty following commands HEENT: Normocephalic, atraumatic. NECK: Supple. Throat midline. LUNGS: Bilateral air entry, decreased breath sounds bilaterally. CARDIOVASCULAR: S1, S2. No murmurs, rubs, gallops. ABDOMEN: Soft, nontender. EXTREMITIES: No clubbing. No cyanosis. 2+ edema INTEGUMENT: No rash. No purpura. LABORATORY DATA: tb 19.6, ast 649, alt 231, alkphos 650. wbc 21, 23 hco3, k 3.8 IMPRESSION AND PLAN: 1. Shock, multifactorial. Predominantly vasodilatory due to possible sepsis + liver disease. Cannot rule out a cardiac component 2. Acute/chronic liver failure. 3. Coagulopathy, liver disease +/- other 4. Toxic/Metabolic encephalopathy, likely 5. Abnormal liver ultrasound with multiple hypoechogenic lesions, not otherwise specified. 6. Mild anemia. 7. Acute kidney failure. 8. Hypertension. 9. Diabetes, uncontrolled. 10. Diabetic neuropathy. 11. Mild leukocytosis. 12. Evolving thrombocytopenia 13. mild fluid overload 14. acute/?chronic systolic cardiomyopathy, 20-25% LVEF 15. multiple non-enhancing lung/liver lesions Wean pressors as feasible Serial assessment of fluid status. Negative fluid balance if tolerated GI consult for liver disease -to define likely nodule origin Vitamins/nutrition maximize as safe. Support the patient with dialysis needs Serial neuro checks follow AM cortisol will review CTs follow up coccidio, histoplasmosis, cryptococcus, hiv test Thank you very much, Dr. Wood for allowing me a chance to participate in the care of Mr. Roberto. Do not hesitate to contact me if I can help in any way.
[2019-05-25] MEDS: INSULIN GLARGINE 100 UNITS/ML VIAL SQ SCH (21:07)
[2019-05-26] VITALS (28 sets, daily range): BP systolic 76–110; BP diastolic 38–85
[2019-05-26] MEDS: NOREPINEPHRINE 8 MG/D5W 250 ML 250 ML IV PRN ×2 (02:33→19:00)
[2019-05-26] MEDS: METRONIDAZOLE 500MG/NS 100ML 100 ML IV SCH ×3 (05:45→21:54)
[2019-05-26] MEDS: OCTREOTIDE ACETATE 0.1 MG/ML 100MCG AMP SQ SCH ×3 (05:45→21:54)
[2019-05-26] MEDS: INSULIN REGULAR, HUMAN 100 UNIT/1 ML 3ML VIAL SQ SCH ×4 (07:30→21:00)
[2019-05-26] MEDS: FOLIC ACID/CYANOCOB/PYRIDOXINE TAB PO SCH (08:02)
[2019-05-26] MEDS: FERROUS SULFATE 325 MG TAB PO SCH ×2 (08:02→16:03)
[2019-05-26] MEDS: MIDODRINE HCL 5 MG TABLET PO SCH ×3 (08:02→16:03)
[2019-05-26] MEDS: CLOPIDOGREL BISULFATE 75 MG TAB PO SCH (08:02)
[2019-05-26] MEDS: BALSAM PERU/CASTOR OIL 60 GM OINT...G. TP SCH (08:02)
[2019-05-26] MEDS: FAMOTIDINE 20 MG TAB PO SCH (08:02)
[2019-05-26 09:54] LABS: BASOPHILS # (AUTO) 0.1 (0.0-0.1); BASOPHILS % 0.2 % (0.0-1.0); EOSINOPHILS # (AUTO) 1.6 (0.0-0.4); EOSINOPHILS % 7.1 % (0.0-6.0); HEMOGLOBIN 14.8 g/dL (14.0-18.0); LYMPHOCYTES # (AUTO) 1.3 (1.0-3.2); LYMPHOCYTES % 5.6 % (18.0-39.1); MEAN CORPUSCULAR HEMOGLOBIN 26.4 pg (28-32); MEAN CORPUSCULAR HGB CONC 34.4 g/dL (31-35); MEAN CORPUSCULAR VOLUME 76.8 fL (81-99); MONOCYTES # (AUTO) 1.6 (0.2-0.8); MONOCYTES % 7.2 % (4.4-11.3); NEUTROPHILS # (AUTO) 17.5 (2.1-6.9); NEUTROPHILS % 78.6 % (38.7-80.0); PLATELET COUNT 102 x10e3/uL (140-360); RED CELL DISTRIBUTION WIDTH 22.8 % (11.7-14.4)
[2019-05-26] MEDS: MEROPENEM 500MG/ NS 50ML 50 ML IV SCH (10:04)
[2019-05-26 10:09] LABS: ALBUMIN 2.1 g/dL (3.5-5.0); ALBUMIN/GLOBULIN RATIO 0.8 (0.8-2.0); ANION GAP 22.7 mmol/L (8-16); CALCIUM 8.2 mg/dL (8.4-10.2); CREATININE, SERUM 4.73 mg/dL (0.72-1.25); POTASSIUM 4.7 mmol/L (3.5-5.1)
[2019-05-26 10:40] LABS: ANISOCYTOSIS SLIGHT; EOSINOPHILS % (MANUAL) 2 % (0-7); LYMPHOCYTES % (MANUAL) 5 % (19-48); MICROCYTOSIS SLIGHT; MONOCYTES % (MANUAL) 6 % (3.4-9.0); NEUTROPHILS % (MANUAL) 87 % (40-74); RBC MORPHOLOGY COMMENT ABNORMAL
[2019-05-26 10:41] LABS: PLATELET ESTIMATE MODERATELY DECREASED; PLATELET MORPHOLOGY COMMENT NORMAL
[2019-05-26] MEDS ORDERED: SODIUM CHLORIDE 0.9% 50ML 50 ML ONE (13:16)
[2019-05-26] MEDS: MICAFUNGIN SODIUM 100 ML IV SCH (13:21)
--- NOTE | 2019-05-26 15:46 | NUR ---
PULMONARY / CCM FOLLOW UP DATE OF ENCOUNTER: 05/26/19 SUBJECTIVE: levophed 20/min 91% saturation, RA fio2 Rectal tube in stable mentation, can say short phrases maximum REVIEW OF SYSTEMS: Cannot get reliably. He is altered. OBJECTIVE: VITAL SIGNS: vital signs noted, reviewed per the chart GENERAL: weak, has difficulty following commands HEENT: Normocephalic, atraumatic. NECK: Supple. Throat midline. LUNGS: Bilateral air entry, decreased breath sounds bilaterally. CARDIOVASCULAR: S1, S2. No murmurs, rubs, gallops. ABDOMEN: Soft, nontender. EXTREMITIES: No clubbing. No cyanosis. 2+ edema INTEGUMENT: No rash. No purpura. LABORATORY DATA: tb 22.7, alk phos 709, ast 2850, alt 485 22 wbc, hct 43, plt 102 4.7 k, hco3 20, cr 4.7 IMPRESSION AND PLAN: 1. Shock, multifactorial. Predominantly vasodilatory due to possible sepsis + liver disease. Cannot rule out a cardiac component 2. Acute/chronic liver failure. 3. Coagulopathy, liver disease +/- other 4. Toxic/Metabolic encephalopathy, likely 5. Abnormal liver ultrasound with multiple hypoechogenic lesions, not otherwise specified. 6. Mild anemia. 7. Acute kidney failure. 8. Hypertension. 9. Diabetes, uncontrolled. 10. Diabetic neuropathy. 11. Mild leukocytosis. 12. Evolving thrombocytopenia 13. mild fluid overload 14. acute/?chronic systolic cardiomyopathy, 20-25% LVEF 15. multiple non-enhancing lung/liver lesions Wean pressors as feasible Serial assessment of fluid status. Vitamins/nutrition maximize as safe. Support the patient with dialysis needs and support the liver Serial neuro checks follow AM cortisol follow up coccidio, histoplasmosis, cryptococcus hiv negative poor prognosis apparent, malignancy or not. family to have conference today and consider advanced directives Thank you very much, Dr. Wood for allowing me a chance to participate in the care of Mr. Roberto. Do not hesitate to contact me if I can help in any way.
--- NOTE | 2019-05-26 17:57 | Consultation ---
DATE OF CONSULTATION: 05/25/[address] Edmund Wood. REASON FOR CONSULTATION: Mr. Roberto is a 68-year-old black gentleman referred to me for liver and lung metastases. The patient at the present time is obtunded on vasopressors. No history could be obtained from the patient. The claims that he was brought in for multiple reasons such as confusion. SOCIAL HISTORY: Could not be obtained. FAMILY HISTORY: Could not be obtained. ALLERGIES: REPORTED NONE. MEDICATIONS: At this time: 1. Norepinephrine. 2. Meropenem. 3. Metronidazole. 4. Micafungin. 5. Sodium chloride. 6. Ondansetron. 7. Gabapentin. 8. Folic acid. 9. Cyanocobalamin. 10. Insulin. 11. Plavix. 12. Mannitol. 13. Dextrose. 14. Albumin. 15. Diphenhydramine. 16. Ferrous sulfate. 17. Guanfacine. 18. Pepcid. 19. Midodrine. REVIEW OF SYSTEMS: HEENT: Normal. CARDIAC: The patient was on Plavix, however, the family could not tell me as to why he is on Plavix. RESPIRATORY: Multiple lesions in the lung. GASTROINTESTINAL: Multiple lesions in the liver. GENITOURINARY: Renal failure. MUSCULOSKELETAL: Skin and breast reported to have decubiti over the coccygeal region. I could not see them as he is obtunded. PHYSICAL EXAMINATION: GENERAL: Moderately developed male, hypotensive on Levophed, and jaundiced. No palpable adenopathy. HEART: Tachycardiac at 105 to 110. LUNGS: Very coarse crepitations. ABDOMEN: Could not be examined properly. RECTAL: Could not be done. CENTRAL NERVOUS SYSTEM: Could not be done. LABORATORY DATA: Lab shows a sodium of 138, potassium 3.8, chloride is 101, CO2 of 23, BUN 70, creatinine 5.5, glucose 100. White count 21,000 and hemoglobin 12.55, hematocrit 35.7, platelets 109. INR 2.8. Bilirubin 19.6, SGPT 231, SGOT 649, alkaline phosphatase 650. The patient does have lung and liver metastases, multiple by the radiology. IMPRESSION: 1. Leukemoid reaction. 2. Chronic renal failure. 3. Coagulopathy. 4. History of diabetes mellitus. 5. History of hypertension. 6. History of hyperlipidemia. 7. Congestive heart failure. 8. Encephalopathy. 9. Decubiti. 10. Pulmonary metastases. 11. Liver metastases. 12. Cystic mass in the pancreas by CAT scan. 13. Hypocalcemia. 14. Obstructive jaundice. 15. Hypoproteinemia. 16. Hypoalbuminemia. PLAN, COMMENTS, AND SUGGESTIONS: Terminal care is suggested. There is no cure for this process, which he is going through. No biopsies are suggested. It is of academic interest, I stressed more on possibility of no code. I had a very prolonged discussion with the patient's sons and the daughter on the following day, the first day I discussed this with the . MD LANCE Morfin/MODL /[id number] cc: MD Naman Bello MD Tahir Hafeez, MD Maurice S Haddad, MD George M Nassif, MD
[2019-05-26] MEDS: INSULIN GLARGINE 100 UNITS/ML VIAL SQ SCH (21:00)
[2019-05-27] VITALS (19 sets, daily range): BP systolic 70–119; BP diastolic 45–68
[2019-05-27] MEDS: NOREPINEPHRINE 8 MG/D5W 250 ML 250 ML IV PRN ×2 (00:46→06:00)
[2019-05-27] MEDS: OCTREOTIDE ACETATE 0.1 MG/ML 100MCG AMP SQ SCH ×2 (05:01→14:22)
[2019-05-27] MEDS: METRONIDAZOLE 500MG/NS 100ML 100 ML IV SCH ×2 (05:01→13:09)
[2019-05-27] MEDS: INSULIN REGULAR, HUMAN 100 UNIT/1 ML 3ML VIAL SQ SCH ×3 (07:30→16:00)
[2019-05-27] MEDS: MIDODRINE HCL 5 MG TABLET PO SCH ×3 (08:00→16:00)
[2019-05-27] MEDS: FERROUS SULFATE 325 MG TAB PO SCH ×2 (08:24→16:00)
[2019-05-27] MEDS: FOLIC ACID/CYANOCOB/PYRIDOXINE TAB PO SCH (08:24)
[2019-05-27] MEDS: BALSAM PERU/CASTOR OIL 60 GM OINT...G. TP SCH (08:25)
[2019-05-27] MEDS: FAMOTIDINE 20 MG TAB PO SCH (08:25)
[2019-05-27] MEDS: CLOPIDOGREL BISULFATE 75 MG TAB PO SCH (08:25)
--- NOTE | 2019-05-27 08:27 | NUR ---
ATTEMPTED TO FEED PATIENT, PT LETHARGIC AND DOES NOT FOLLOW COMMANDS. PT UNABLE TO SAFELY SWALLOW MEDICATION OR EAT ANY SOFT FOOD AT THIS TIME. UNABLE TO GIVE AM MEDS
[2019-05-27 09:25] LABS: BASOPHILS # (AUTO) 0.1 (0.0-0.1); BASOPHILS % 0.2 % (0.0-1.0); EOSINOPHILS # (AUTO) 0.1 (0.0-0.4); EOSINOPHILS % 0.3 % (0.0-6.0); HEMATOCRIT 39.6 % (38.2-49.6); HEMOGLOBIN 13.2 g/dL (14.0-18.0); LYMPHOCYTES # (AUTO) 1.6 (1.0-3.2); LYMPHOCYTES % 7.6 % (18.0-39.1); MEAN CORPUSCULAR HEMOGLOBIN 25.9 pg (28-32); MEAN CORPUSCULAR HGB CONC 33.3 g/dL (31-35); MEAN CORPUSCULAR VOLUME 77.8 fL (81-99); MONOCYTES # (AUTO) 1.9 (0.2-0.8); MONOCYTES % 9.2 % (4.4-11.3); NEUTROPHILS # (AUTO) 16.6 (2.1-6.9); NEUTROPHILS % 80.7 % (38.7-80.0); PLATELET COUNT 100 x10e3/uL (140-360); RED BLOOD COUNT 5.09 x10e6/uL (4.3-5.7)
[2019-05-27 09:41] LABS: ALBUMIN 1.7 g/dL (3.5-5.0); ALBUMIN/GLOBULIN RATIO 0.7 (0.8-2.0); ANION GAP 27.1 mmol/L (8-16); CALCIUM 7.6 mg/dL (8.4-10.2); CREATININE, SERUM 5.64 mg/dL (0.72-1.25); POTASSIUM 5.1 mmol/L (3.5-5.1)
[2019-05-27 10:08] LABS: ANISOCYTOSIS SLIGHT; LYMPHOCYTES % (MANUAL) 9 % (19-48); MICROCYTOSIS SLIGHT; MONOCYTES % (MANUAL) 9 % (3.4-9.0); NEUTROPHILS % (MANUAL) 82 % (40-74); PLATELET ESTIMATE SLIGHTLY DECREASED; PLATELET MORPHOLOGY COMMENT NORMAL; RBC MORPHOLOGY COMMENT NORMAL
[2019-05-27] MEDS ORDERED: SODIUM BICARBONATE 8.4% INJ 50 ML SYR IV STA (10:31)
[2019-05-27] MEDS ORDERED: ALBUMIN 25% 12.5GM 0.25 GM/ML BTL IV ONE (10:45)
--- NOTE | 2019-05-27 10:53 | NUR ---
IM- progress note O/N: no events ROS: no cp/sob/dizziness/vision changes/skin rash/leg pain/back pain v/s revd PE tired appearing icteric ns1s2 mod bs soft nt nd 1+ leg edema B/L dialysis catheter skin dry flat affect confused; reduced responsiveness lab/meds revd A/P: 68yoM DKA JAYDA HTN HLD DM-neuropathy CHF type? Peripheral edema PLAN IVF Insulin hba1c/lipids/osmoles Echo SCD Dispo: f/u labs; keep NPO. Hba1c/LDL 12.9/138 Uncontrolled DM; but periods of hypoglycemia here; adjust meds; lower dosings; f/u labs; 05/07/19 Hepatomegaly; f/u imaging in future; Combined diastolic and systolic CHF LVEF 20-25%; stress test vs LHC pending; 05/08 snf eval; cardiac eval 05/09 fluids off at family request; some confusion; continue insulin; give 1/2NS at 50/hr; Hyperkalemia resolved with kayexalate; get KUB . SNF eval pending; 05/10 KUB negative; check renal fn; Further assessment by cardio shows LVEF 30%; no lifevest indicated; SNF pending; 05/11 check labs; titrate lantus to 7 units; ambulate pt. Confused; Low mood; check ammonia and check PHQ9 and P4 now; likely needs antidepressants; Rising BUN and JAYDA - consult nephrology 05/12 renal U/S normal; check BMP. Has bed at SNF- hold. Renal fn worsening; 05/13 check renal fn; CT brain negative; check MRI; Uremic Encephalopathy. 05/14 f/u labs- renal fn worse;reduce gabapentin. 05/15 bicarbs worse; GFR worse; change fluids to 1/2NS with bicarbs; d/w renal. MRI brain negative; 05/16 HD plans for 3 days; f/u labs; Stated HD yesterday. Confused; sternal rub overnight to awake; 05/17 labs pending; d/w ; move to ICU. 05/18 hyperbilirubinemia; ammonia levels; Hepatorenal syndrome; pressors for renal perfusion. SEptic shock- pressors; will aid in dialysis. Cholestatic jaundice cct>35mins 05/19 Cholestatic jaundice- d/c cefepime after d/w ; consult ID for mgmt of antibiotics. 05/20 supportive care; 05/21 insert rectal tube; f/u HIDA. 05/22 HIDA negative; cont lactulose and HD. continue supportive care. 05/23 Distributive Shock- cont supportive care; 05/24 supportive care; 05/25 CT shows Innumerable masses throughout liver and LAD and numerous pulmonary nodules- metastatic ds? check PSA and CEA/CA19-9; cystic lesion in pancreatic tail 2.8cm. Onc consult 05-26 markedly elevated CA 19-9 428. 05-27 supportive care. d/w son at bedside. Edmund Wood MD, PhD.
[2019-05-27] MEDS ORDERED: ALBUMIN 25% 25GM 100ML 200 ML IV ONE (11:00)
[2019-05-27] MEDS: MICAFUNGIN SODIUM 100 ML IV SCH (14:22)
--- NOTE | 2019-05-27 15:45 | NUR ---
DISCUSSED WITH FAMILY POC, LEVOPHED TO BE TURNED OFF THIS AFTERNOON AFTER FAMILY VISITS. WILL START COMFORT CARE CODE STATUS CHANGED.
[2019-05-27] MEDS ORDERED: MORPHINE SULFATE INJ 4 MG/ML INJ 1ML IV PRN (16:00)
[2019-05-27] MEDS ORDERED: MORPHINE SULFATE 2 MG/ML SYR 1ML IV PRN (16:15)
--- NOTE | 2019-05-27 17:36 | NUR ---
LEVOPHED STOPPED AT THIS TIME
--- NOTE | 2019-05-27 19:00 | NUR ---
RECEIVED PATIENT UNRESPONSIVE AND HYPOTENSIVE. FAMILY IS AT BEDSIDE - COMFORT MEASURES IN PLACE
--- NOTE | 2019-05-27 19:51 | NUR ---
ASYSTOLE ON MONITOR, NO BREATH SOUNDS OR HEART TONES TO AUSCULTATION. REQUEST TO ER PHYSICIAN TO PRONOUNCE
--- NOTE | 2019-05-27 21:30 | NUR ---
PT PRONOUNCED BY ER PHYSICIAN
--- NOTE | 2019-05-27 22:01 | NUR ---
PULMONARY / CCM FOLLOW UP DATE OF ENCOUNTER: 05/27/19 SUBJECTIVE: levophed 22/min d/w family they want to transition to comfort care REVIEW OF SYSTEMS: Cannot get reliably. He is altered. OBJECTIVE: VITAL SIGNS: vital signs noted, reviewed per the chart GENERAL: weak, has difficulty following commands HEENT: Normocephalic, atraumatic. NECK: Supple. Throat midline. LUNGS: Bilateral air entry, decreased breath sounds bilaterally. CARDIOVASCULAR: S1, S2. No murmurs, rubs, gallops. ABDOMEN: Soft, nontender. EXTREMITIES: No clubbing. No cyanosis. 2+ edema INTEGUMENT: No rash. No purpura. LABORATORY DATA: per EMR IMPRESSION AND PLAN: 1. Shock, multifactorial. Predominantly vasodilatory due to possible sepsis + liver disease. Cannot rule out a cardiac component 2. Acute/chronic liver failure. 3. Coagulopathy, liver disease +/- other 4. Toxic/Metabolic encephalopathy, likely 5. Abnormal liver ultrasound with multiple hypoechogenic lesions, not otherwise specified. 6. Mild anemia. 7. Acute kidney failure. 8. Hypertension. 9. Diabetes, uncontrolled. 10. Diabetic neuropathy. 11. Mild leukocytosis. 12. Evolving thrombocytopenia 13. mild fluid overload 14. acute/?chronic systolic cardiomyopathy, 20-25% LVEF 15. multiple non-enhancing lung/liver lesions dc pressors when family is ready Support the patient per family, comfort first Serial neuro checks poor prognosis apparent patient reported to later today Thank you very much, Dr. Wood for allowing me a chance to participate in the care of Mr. Roberto. Do not hesitate to contact me if I can help in any way.
--- NOTE | 2019-05-27 23:00 | NUR ---
RELEASE FROM [employer] OBTAINED. REMAINS PICKED UP BY [facility]. DR BUENROSTRO, DR Cheng DE [place] AND DR NICHOLE HAVE ALL BEEN NOTIFIED - WILL NOTIFY OTHER CONSULTANTS IN AM
== END 2019-05-27 22:56 | disposition expired | DRG 637 ==
LOC: FSED 13:10 → ERHOLD 14:25 → MED/SURG2 16:06 → OBSVTOIN 05-05 05:35 → ICU 05-17 16:20
PROVIDERS: ADMIT Internal Medicine; ATTEND Internal Medicine
PROC: 5A1D70Z Performance of Urinary Filtration, Intermittent, Less than 6 Hours Per Day (ICD-10-PCS; principal; 2019-05-15)
PROC: 02HV33Z Insertion of Infusion Device into Superior Vena Cava, Percutaneous Approach (ICD-10-PCS; 2019-05-15)
PROC: B548ZZA Ultrasonography of Superior Vena Cava, Guidance (ICD-10-PCS; 2019-05-15)
DX: E11.10 Type 2 diabetes mellitus with ketoacidosis without coma (principal); G93.41 Metabolic encephalopathy; A41.9 Sepsis, unspecified organism; R65.21 Severe sepsis with septic shock; N17.0 Acute kidney failure with tubular necrosis; N18.6 End stage renal disease; K72.00 Acute and subacute hepatic failure without coma; K76.7 Hepatorenal syndrome; I50.43 Acute on chronic combined systolic (congestive) and diastolic (congestive) heart failure; K83.1 Obstruction of bile duct; N17.9 Acute kidney failure, unspecified; J81.1 Chronic pulmonary edema; C22.9 Malignant neoplasm of liver, not specified as primary or secondary; E87.2 Acidosis; E44.0 Moderate protein-calorie malnutrition; I13.2 Hypertensive heart and chronic kidney disease with heart failure and with stage 5 chronic kidney disease, or end stage renal disease; N39.0 Urinary tract infection, site not specified; R17 Unspecified jaundice; K86.2 Cyst of pancreas; E11.40 Type 2 diabetes mellitus with diabetic neuropathy, unspecified; E77.8 Other disorders of glycoprotein metabolism; E88.09 Other disorders of plasma-protein metabolism, not elsewhere classified; Z99.2 Dependence on renal dialysis; M62.3 Immobility syndrome (paraplegic); E78.5 Hyperlipidemia, unspecified; E86.0 Dehydration; E87.5 Hyperkalemia; D64.9 Anemia, unspecified; R16.0 Hepatomegaly, not elsewhere classified; D69.6 Thrombocytopenia, unspecified; D63.8 Anemia in other chronic diseases classified elsewhere; E87.70 Fluid overload, unspecified; K76.89 Other specified diseases of liver; R91.8 Other nonspecific abnormal finding of lung field; E83.51 Hypocalcemia; L89.152 Pressure ulcer of sacral region, stage 2; L89.892 Pressure ulcer of other site, stage 2
CPT/HCPCS: 36415; 36556; 70450; 70551; 71045; 71250; 74018; 74176; 74178; 74470; 76700; 76705; 76770; 76937; 77001; 78226; 78227; 78452; 80048; 80053; 80061; 80076; 81001; 81003; 81015; 82105; 82140; 82378; 82533; 82550; 82553; 82570; 82607; 82746; 82947; 82948; 83036; 83605; 83690; 83735; 83880; 83921; 84100; 84132; 84145; 84152; 84156; 84207; 84295; 84425; 84443; 84484; 84520; 85025; 85610; 85730; 86301; 86592; 86635; 86698; 87040; 87086; 87186; 87390; 87493; 90962; 93005; 93017; 93306; 93970; 94760; 96372; 97139; 99284; A9502; A9537; C1769; G0378; G0433; G0435; J0610; J0692; J0834; J1200; J1630; J1644; J1815; J1817; J2150; J2248; J2270; J2354; J2405; J2550; J3370; J7030; J7040; J7050; J7121; J7799; P9047; Q0162; Q9967